=== PATIENT | female | born 1945 | race Caucasian/White ===

== ENCOUNTER 2021-04-05 11:15 | Outpatient (CLI) | payer MEDICARE, BC, SELFPAY ==
--- NOTE | 2021-04-05 11:15 | RT.EKG_ITS ---
APPROVED REPORT Exam: Resting ECG Reason for Exam: tachycardia Patient Location: O HR:107 bpm ECG Measurements Heart Rate 107 AXIS ME 152 P 68 QRSd 77 QRS 16 QT 331 T 65 QTc 442 Conclusion Sinus tachycardia...rate> 99
== END 2021-04-05 11:16 | disposition home or self-care (01) ==
LOC: DI.CM 11:17
PROVIDERS: PCP Family Medicine; Visit Provider Nurse Practitioner Family
DX: R07.89 Other chest pain (principal)
CPT/HCPCS: 93010

== ENCOUNTER 2021-04-05 12:16 | Observation (INO) | payer MEDICARE, BC, SELFPAY ==
[2021-04-05] VITALS (32 sets, daily range): BP systolic 126–167; BP diastolic 64–126; PULSE 82–125; RESP 12–31; TEMP 36.4–36.7; O2SAT 93–98
--- NOTE | 2021-04-05 12:15 | RT.EKG_ITS ---
APPROVED REPORT Exam: Resting ECG Reason for Exam: Rapid Heart Rate Patient Location: E HR:103 bpm ECG Measurements Heart Rate 103 AXIS WA 150 P 59 QRSd 77 QRS -6 QT 333 T 66 QTc 437 Conclusion Sinus tachycardia...rate> [address] t wave ischemic findings
--- NOTE | 2021-04-05 12:30 | DI.CT_ITS ---
Exam(s) CT ABDOMEN PELVIS W EXAM: CT ABDOMEN PELVIS W INDICATION: lower abdomen pain, right sided. COMPARISON: No exams were available for comparison TECHNIQUE: FINDINGS: CT examination of the abdomen and pelvis was performed with a bolus infusion of 100 cc of Omnipaque 3 50. Images obtained through the lung bases are unremarkable. The liver is unremarkable in appearance. Gallbladder is distended otherwise unremarkable. Bile ducts are CT normal. Pancreas appears normal. Spleen is unremarkable in appearance. Adrenals appear normal. The kidneys are unremarkable with no evidence of hydronephrosis, nephrolithiasis, or renal mass.. Ur inary bladder unremarkable. Abdominal aorta is of normal diameter and no major vascular abnormality is seen. No abdominal wall hernia. No abdominal or pelvic adenopathy. HAND COMPOSITOR structures appear intact. There is marked irregular wall thickening and dilatation of the appendix with very prominent periappe ndiceal fat edema and fluid collection. No gross abscess identified but the possibility of leaking o r ruptured appendicitis would have to be raised. No free air seen in the peritoneal cavity. No evid ence of bowel obstruction. No evidence of diverticulitis or bowel obstruction. IMPRESSION: Findings consistent with acute appendicitis, question leaking or ruptured appendicitis. No gross abs cess or free intraperitoneal air. Results of this exam have been verbally communicated with provider. RADIATION DOSE DELIVERED: 772.44mGy.cm Total DLP 772.44mGy.cm Total DLP RADIATION OPTIMIZATION: All CT scans at this facility use at least one of these dose optimization te chniques: automated exposure control; mA and/or kV adjustment per patient size (includes targeted exa ms where dose is matched to clinical indication); or iterative reconstruction.
--- NOTE | 2021-04-05 12:31 | ED.GENADUL_ITS ---
Discharge Plan Disposition Patient Disposition: [facility] INPATIENT Condition: Stable Discharge Details Clinical Impression: Acute appendicitis Primary Care Provider: Carlota Talbot ED Provider: Luisito Madrid Home Meds and New Rx's Prescriptions: No Action calcium carbonate [Calcium 600] 600 MG tablet 600 mg PO DAILY RF: 0 carboxymethylcellulose sodium [Lubricant Eye Drops] 15 ML drops 15 ml Ophthalmic DAILY PRN PRNRF: 0 ascorbate calcium (vitamin C) 500 MG tablet 500 mg PO DAILY PRN PRNRF: 0 garlic 1 EACH capsule 1 ea PO DAILY RF: 0 cholecalciferol (vitamin D3) [Vitamin D3] 400 UNIT capsule 400 unit PO DAILY PRN PRNRF: 0 ibuprofen 200 mg Tablet 400 mg PO PRN PRNRF: 0 Buckthorn DAILY RF: 0 Medical Decision Making 75 yo female with no reported chronic medical problems comes in with right lower abdomen pain for 10 days. Denies n/v, denies dysuria or urinary symptoms, had a low grade temp this morning to 100.2 otherwise no fevers.She states in the past she has had unspecified colitis. She has tendernes with deep palpation in the rlq she rates at 2/10 and when no palpation denies any pain. Concern for possible colon cancer less likely appendicitis given the mild discomfort, will obtain labs and imaging. pt remains stable and on ct does have appendicitis with possible rupture per Dr. Remy. Will consult with general surgery Differential Diagnosis Differential Diagnosis: colitis, appendicitis, colon cancer Imaging Data Radiologic Study: Attestation: I personally reviewed and interpreted this imaging study as follows: Imaging: CT Scan Radiologist's impression: acute appendicitis with possible rupture Lab Data Lab results reviewed: Yes I reviewed the patient's lab results. ECG Data Attestation: I personally reviewed and interpreted this ECG (s) as follows: Prior ECG tracings: not available for review Interpretation: sinus tachycardia, rate of 99, pr 150, no acute st t wave ischem ic findings HPI General Mode of arrival: ambulatory . Date/Time Provider Initiated Documentation: 04/05/21 12:16 . Limitations to Documentation: no limitations . Information obtained by: patient . History of Present Illness 75 year old F presents to the emergency department with the chief complaint of right lower abdomen pain, described as mild, Patient started experiencing this day(s) (10) and it has been constant. No relieving factors improve symptom(s), No exacerbating factors reported . Patient notes other (decreased appetite). Patient did receive the following treatments prior to arrival, none Related Data Home Medications Medication Instructions Recorded Confirmed ascorbate calcium (vitamin C) 500 mg PO DAILY PRN PRN 05/11/13 04/05/21 calcium carbonate [Calcium] 600 mg PO DAILY 05/11/13 04/05/21 carboxymethylcellulose sodium 15 ml OPHTHALMIC DAILY PRN PRN 05/11/13 04/05/21 [Lubricant Eye Drops] cholecalciferol (vitamin D3) 400 unit PO DAILY PRN PRN 05/11/13 04/05/21 [Vitamin D] garlic 1 ea PO DAILY 05/11/13 04/05/21 Buckthorn DAILY 04/05/21 ibuprofen 400 mg PO PRN PRN 04/05/21 04/05/21 Allergies Allergy/AdvReac Type Severity Reaction Status Date / Time No Known Allergies Allergy Verified 04/05/21 12:29 General Stated Complaint: Palpitatns ELADIO: 2 Review of Systems All systems reviewed & are unremarkable except as noted in HPI and below Constitutional Constitutional: Denies chills, Denies fever(s) and Denies weakness Cardiovascular Cardiovascular: Denies chest pain and Denies dyspnea Respiratory Respiratory: Denies cough and Denies dyspnea Gastrointestinal Gastrointestinal: Denies vomiting Musculoskeletal Musculoskeletal: Denies joint swelling Neurologic Neurologic: Denies weakness Psychiatric Psychiatric: Denies depression PFSH Social History Smoking/Tobacco Use Status: Never Smoking risk assessment performed?: Yes Drug use: Never Do you feel safe at home: Yes Do you feel safe in your relationship?: Yes Exam Const General: no acute distress Orientation: alert HENWY Head: normal to inspection Ears: external ears normal General nose exam: external nose normal Mouth: moist mucous membranes Eyes General: appearance normal, both eyes and all related structures Neck Neck: normal visual inspection Resp Effort & Inspection: normal respiratory effort and able to speak in complete sentences Cardio Rate: regular rate GI Palpation: soft, not rigid and tender Skin General skin exam: no rashes or lesions noted Neuro General: patient alert and patient oriented x3 Extrem General: normal to inspection Psych Mental Status: mental status grossly normal Course Vital Signs Vital signs: Vital Signs Temperature 36.6 C 04/05/21 12:20 Pulse 125 H 04/05/21 12:20 Respiratory Rate 16 04/05/21 12:20 Blood Pressure 146/102 H 04/05/21 12:20 Pulse Oximetry 97 04/05/21 12:20 Temperature 36.6 C 04/05/21 12:20 Temperature Source Temporal Artery Scan 04/05/21 12:20 Pulse 125 H 04/05/21 12:20 Respiratory Rate 16 04/05/21 12:20 Blood Pressure 146/102 H 04/05/21 12:20 Blood Pressure Position Supine 04/05/21 12:20 Pulse Oximetry 97 04/05/21 12:20 Oxygen Delivery Method Room Air 04/05/21 12:20 Oxygen Flow Rate 0 04/05/21 12:20 Pain Level 1 04/05/21 12:20
[2021-04-05 12:44] LABS: Abs Immature Grans 0.07 10^3/uL (0.0-0.06); Absolute Basophil Count 0.05 10^3/uL (0.0-0.2); Absolute Eosinophil Count 0.02 10^3/uL (0.0-0.7); Absolute Lymphocyte Count 1.31 10^3/uL (1.2-3.4); Absolute Monocyte Count 1.42 10^3/uL (0.1-0.8); Absolute Neutrophil Count 12.54 10^3/uL (1.2-6.7); Basophils % 0.3; Eosinophils % 0.1; HCT 43.7 % (36.0-46.0); HGB 14.5 g/dL (11.2-15.7); Immature Grans % 0.5; Lymphocytes % 8.5; MCH 29.4 pg (27.0-33.0); MCHC 33.2 % (32.0-36.0); MCV 88.5 fL (80-95); Monocytes % 9.2; Neutrophils % 81.4; Nucleated RBC 0 %; Platelet Count 280 10^3/uL (130-400); RBC 4.94 10^6/uL (3.93-5.22); RDW 11.9 % (11.7-14.6); RDW-SD 38.5 fL; WBC 15.41 10^3/uL (4.4-10.8)
[2021-04-05] MEDS: Normal Saline - Diluent 50 ML VIAL IV (12:58)
[2021-04-05] MEDS: Omnipaque 350 MG/ML 100 ML BTL IJ (12:58)
[2021-04-05] MEDS: Normal Saline Flush 10 ML SYR IVP ×2 (12:58→16:29)
[2021-04-05 13:02] LABS: ALT 22 U/L (14-59); AST 12 U/L (15-37); Albumin 3.6 g/dL (3.4-5.0); Alkaline Phosphatase 75 U/L (46-116); Anion Gap 10.4 mmol/L (3-11); BUN 14 mg/dL (7-18); Bilirubin, Direct 0.3 mg/dL (0.0-0.2); Bilirubin, Total 0.9 mg/dL (0.2-1.0); CO2 26.6 mmol/L (21.0-32.0); CREATININE 1.4 mg/dL (0.55-1.02); Calcium 9.1 mg/dL (8.5-10.1); Chloride 100 mmol/L (98-107); Estimated GFR 36.56 (mL/min/1.73m2); Glucose 138 mg/dL (74-106); Lipase 30 U/L (73-393); Potassium 3.8 mmol/L (3.5-5.1); Sodium 137 mmol/L (136-145); Total Protein 7.7 g/dL (6.4-8.2)
[2021-04-05 13:07] LABS: INR 1.1 (0.9-1.1); PTT Activated 26.3 sec (21.0-27.5); Prothrombin Time 10.9 sec (9.3-11.0)
[2021-04-05] MEDS: PIPERACILLIN/TAZO 4.5 GM in Normal Saline 100 ML IVPB (13:20)
[2021-04-05] MEDS: Normal Saline 1,000 ML 1000 ML IV (13:21)
[2021-04-05 13:28] LABS: Bilirubin Negative (Negative); Blood Trace-intact (Negative); Clarity Sl Cloudy (Clear); Glucose Negative (Negative); Ketones 15 mg/dL (Negative); Leukocyte Esterase Negative (Negative); Nitrite Positive (Negative); Urobilinogen 0.2 EU/dL (Up TO 0.2); pH 6.5 (5-8)
[2021-04-05 13:40] LABS: Bacteria Moderate HPF (Negative); C & S Indicated? Yes; Casts Negative LPF (Negative); Crystals Negative HPF (Negative); Epithelial Cells Few HPF (Negative); Mucus Trace (Negative); WBC 0-2 HPF (0-5)
[2021-04-05 13:49] LABS: Source Nasal/Nares
[2021-04-05 14:27] LABS: COVID-19 PCR Negative (Negative)
[2021-04-05] MEDS: Pantoprazole 40 MG VIAL IVP (16:28)
[2021-04-05] MEDS: Lactated Ringers 1,000 ML 125 ML IV (16:29)
--- NOTE | 2021-04-05 16:45 | W.PM.HP.N ---
Date of service: 04/05/21 Time of Service: 15:45 Assessment and Plan Assessment and plan (1) Appendicitis with nonoperative management: Status: Acute Assessment and plan: This is a 75-year-old female who comes in with a likely delayed presentation of acute appendicitis. My evaluation of the CT is concerning for significant inflammation with a possible phlegmon, but no current signs of abscess, (I did review the images personally with the radiologist.) However, she is hemodynamically stable, non-toxic, appears very comfortable without pain medication, reporting only 2/10 pain. Due to the concern for significant inflammation, we will attempt to treat the patient non-operatively with antibiotics. I have made it very clear to the patient that if she does not improve, or shows signs of worsening (increased WBC, fever, worsening physical exam, etc), we will proceed to the operating room. She also understands there is risk of the formation of an abscess that made need to be drained transcutaneously or in the OR, even with antibiotic treatment.. Plan: --admit to surgical service --IV antibiotics --NPO except ice chips --pain control with low doses --GI and DVT prophylaxis --OOB and ambulate --I have instructed the patient to inform nursing of any worsening of evolution of abdominal pain/discomfort History of Present Illness History of Present Illness Chief Complaint: abdominal pain, malaise Consults Consult date: 04/05/21 Narrative: Consult date: 04/05/21 Narrative: This is a 75-year-old female who presents with ten days of abdominal pain. She states that she initially thought she was having a bout of colitis, and put herself on a liquid diet. She reports she had a low-grade fever off 100.2F once, but no others, and she was checking them daily. She details having increased malaise and anorexia over the 3-4 days prior to presentation, and last night she could not get comfortable while sleeping. The quality of her pain and discomfort has been similar to episodes of colitis in the past, and this has been focal to the right lower quadrant. Mrs. Cruz has not been under routine medical care for greater than ten years, and has never had a colonoscopy. At this time, she denies fever/chills, nausea or vomiting, chest pain, shortness of breath, diarrhea, or dysuria. Her stools have been a little more loose, though she has not been consuming solid food, but they follow her normal pattern of every other day. Review of Systems Constitutional Constitutional: Reports anorexia, Reports difficulty sleeping, Denies fever(s) and Reports malaise Eyes Eyes: Denies blurry vision, Denies change in vision and Denies loss of vision ENT Ears, Nose, Mouth, and Throat: Denies dysphagia, Denies dizziness, Denies odynophagia and Denies sore throat Cardiovascular Cardiovascular: Denies dyspnea Respiratory Respiratory: Denies cough, Denies excessive phlegm production and Denies dyspnea Gastrointestinal Gastrointestinal: Reports abdominal pain, Denies hematochezia, Reports change in bowel habits, Reports change in stool character, Denies dysphagia and Denies odynophagia Genitourinary Genitourinary: Denies difficulty voiding and Denies dysuria Musculoskeletal Musculoskeletal: Denies arthralgias Integumentary/Breasts Skin/Breast: Denies unusual bruising and Denies jaundice Neurologic Neurologic: Denies dizziness and Denies loss of vision Endocrine Endocrine: Denies polyuria [facility] Medical History Cataracts, bilateral Colitis Surgical History History of cataract removal with insertion of prosthetic lens bilateral S/P left knee arthroscopy Social History (Updated 04/06/21 @ 12:13 by Todd Montoya MD) Smoking/Tobacco Use Status: Never Smoking risk assessment performed?: Yes Alcohol Intake: current Details: rare ingestion Drug use: Never Household members: other Details: She is . Her daughter lives in a separate unit upstairs. Do you feel safe at home: Yes Do you feel safe in your relationship?: Yes Meds Allergies and Home Medications Allergies Allergy/AdvReac Type Severity Reaction Status Date / Time No Known Allergies Allergy Verified 04/05/21 12:29 Home Medications Medication Instructions Recorded Confirmed Type ascorbate calcium (vitamin C) 500 mg PO DAILY PRN PRN 05/11/13 04/05/21 History calcium carbonate [Calcium] 600 mg PO DAILY 05/11/13 04/05/21 History carboxymethylcellulose sodium 15 ml OPHTHALMIC DAILY PRN PRN 05/11/13 04/05/21 History [Lubricant Eye Drops] cholecalciferol (vitamin D3) 400 unit PO DAILY PRN PRN 05/11/13 04/05/21 History [Vitamin D] garlic 1 ea PO DAILY 05/11/13 04/05/21 History Buckthorn DAILY 04/05/21 History ibuprofen 400 mg PO PRN PRN 04/05/21 04/05/21 History Exam Const General: cooperative, healthy appearing, comfortable and no acute distress Nutritional Appearance: average body habitus and well nourished Orientation: alert, awake and oriented x3 HENMT Head: normocephalic, atraumatic and no raccoon eyes Ears: hearing grossly normal bilaterally General nose exam: external nose normal Resp Effort & Inspection: normal respiratory effort, able to speak in complete sentences, no cough and no respiratory distress Auscultation: clear to auscultation bilaterally Cardio Rate: regular rate Rhythm: regular rhythm Heart Sounds: S1 normal and S2 normal GI Inspection: normal to inspection and non-distended Palpation: soft, guarding (mild voluntary guarding in the RLQ ) in the RLQ, not rigid and tender in the RLQ; Rovsing's sign negative Auscultation: normoactive bowel sounds Other: Of note, the patient is very active while moving on her gurney during evaluation. 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 Skin General skin exam: no rashes or lesions noted and turgor normal Neuro General: patient alert, patient awake and patient oriented x3 Speech: speech normal Extrem General: no calf tenderness bilaterally Psych Appearance: grossly normal Mental Status: mental status grossly normal Mood: congruent mood Affect: normal affect Attitude: cooperative Thought Process: normal Insight: insight good Judgment: judgment good Results 04/05/21: Admission CBC WBC 15.4K Hgb 14.5 HCT 43.[address] abd/pel: (04/05/21): CT examination of the abdomen and pelvis was performed with a bolus infusion of 100 cc of Omnipaque 350. Images obtained through the lung bases are unremarkable. The liver is unremarkable in appearance. Gallbladder is distended otherwise unremarkable. Bile ducts are CT normal. Pancreas appears normal. Spleen is unremarkable in appearance. Adrenals appear normal. The kidneys are unremarkable with no evidence of hydronephrosis, nephrolithiasis, or renal mass.. Urinary bladder unremarkable. Abdominal aorta is of normal diameter and no major vascular abnormality is seen. No abdominal wall hernia. No abdominal or pelvic adenopathy. INTERNAL AUDIT MANAGER structures appear intact. There is marked irregular wall thickening and dilatation of the appendix with very prominent periappendiceal fat edema and fluid collection. No gross abscess identified but the possibility of leaking or ruptured appendicitis would have to be raised. No free air seen in the peritoneal cavity. No evidence of bowel obstruction. No evidence of diverticulitis or bowel obstruction. IMPRESSION: Findings consistent with acute appendicitis, question leaking or ruptured appendicitis. No gross abscess or free intraperitoneal air. Labs Result diagrams: 04/06/21 06:46 04/06/21 06:46 Labs: Laboratory Results - last 24 hr 04/05/21 04/05/21 04/05/21 12:36 12:36 12:36 WBC 15.41 H RBC 4.94 Hgb 14.5 Hct 43.7 MCV 88.5 MCH 29.4 MCHC 33.2 RDW 11.9 Plt Count 280 MPV 10.0 Immature Gran % 0.5 Neutrophils % 81.4 Lymphocytes % 8.5 Monocytes % 9.2 Eosinophils % 0.1 Basophils % 0.3 Nucleated RBC % 0 Absolute Neutrophils 12.54 H Absolute Lymphocytes 1.31 Absolute Monocytes 1.42 H Absolute Eosinophils 0.02 Absolute Basophils 0.05 PT 10.9 INR 1.1 APTT 26.3 Sodium 137 Potassium 3.8 Chloride 100 Carbon Dioxide 26.6 Anion Gap 10.4 BUN 14 Creatinine 1.4 H Estimated GFR/1.73 m2 36.56 Glucose 138 H Calcium 9.1 Total Bilirubin 0.9 Conjugated Bilirubin 0.3 H AST 12 L ALT 22 Alkaline Phosphatase 75 Total Protein 7.7 Albumin 3.6 Lipase 30 Urine Color Urine Clarity Urine pH Ur Specific [place] Urine Protein Urine Ketones Urine Blood Urine Nitrite Urine Bilirubin Urine Urobilinogen Ur Leukocyte Esterase Urine RBC Urine WBC Ur Epithelial Cells Urine Crystals Urine Bacteria Urine Casts Urine Mucus Ur Culture Indicated? Urine Glucose COVID-19 Source SARS-CoV-2 (PCR) 04/05/21 04/05/21 13:11 13:40 WBC RBC Hgb Hct MCV MCH MCHC RDW Plt Count MPV Immature Gran % Neutrophils % Lymphocytes % Monocytes % Eosinophils % Basophils % Nucleated RBC % Absolute Neutrophils Absolute Lymphocytes Absolute Monocytes Absolute Eosinophils Absolute Basophils PT INR APTT Sodium Potassium Chloride Carbon Dioxide Anion Gap BUN Creatinine Estimated GFR/1.73 m2 Glucose Calcium Total Bilirubin Conjugated Bilirubin AST ALT Alkaline Phosphatase Total Protein Albumin Lipase Urine Color Yellow Urine Clarity Sl cloudy Urine pH 6.5 Ur Specific [place] 1.010 Urine Protein Negative Urine Ketones 15 H Urine Blood Trace-intact H Urine Nitrite Positive H Urine Bilirubin Negative Urine Urobilinogen 0.2 Ur Leukocyte Esterase Negative Urine RBC 3-5 H Urine WBC 0-2 Ur Epithelial Cells Few Urine Crystals Negative Urine Bacteria Moderate Urine Casts Negative Urine Mucus Trace Ur Culture Indicated? Yes Urine Glucose Negative COVID-19 Source Nasal/nares SARS-CoV-2 (PCR) Negative Last Vital Signs Temp 98.1 F 04/05/21 16:10 Pulse 85 04/05/21 16:10 Resp 19 04/05/21 16:10 BP 153/77 H 04/05/21 16:10 Pulse Ox 96 04/05/21 16:10 COVID-19 Screening Have you, or household traveled for leisure in last 14 days?: No Had IN PERSON contact w/suspected or confirmed C-19 person: No
[2021-04-05] MEDS: Heparin 5,000 UNITS/ML VIAL 5000 UNITS SC (18:03)
[2021-04-05] MEDS: PIPERACILLIN/TAZO 3.375 GM in Normal Saline 50 ML IVPB (19:59)
[2021-04-06] VITALS (7 sets, daily range): BP systolic 128–169; BP diastolic 70–99; PULSE 74–95; RESP 16–20; TEMP 36.1–37.3; O2SAT 93–97
[2021-04-06] MEDS: Lactated Ringers 1,000 ML 125 ML IV ×2 (01:26→11:22)
[2021-04-06] MEDS: PIPERACILLIN/TAZO 3.375 GM in Normal Saline 50 ML IVPB ×4 (01:26→20:29)
[2021-04-06] MEDS: Heparin 5,000 UNITS/ML VIAL 5000 UNITS SC ×2 (05:24→18:24)
[2021-04-06 06:55] LABS: Abs Immature Grans 0.03 10^3/uL (0.0-0.06); Absolute Basophil Count 0.03 10^3/uL (0.0-0.2); Absolute Eosinophil Count 0.08 10^3/uL (0.0-0.7); Absolute Lymphocyte Count 1.72 10^3/uL (1.2-3.4); Absolute Monocyte Count 0.81 10^3/uL (0.1-0.8); Basophils % 0.3; Eosinophils % 0.9; HCT 36.5 % (36.0-46.0); HGB 12.1 g/dL (11.2-15.7); Immature Grans % 0.3; Lymphocytes % 19.4; MCH 29.7 pg (27.0-33.0); MCHC 33.2 % (32.0-36.0); MCV 89.5 fL (80-95); MPV 10.3 fL (8.0-11.0); Monocytes % 9.1; Nucleated RBC 0 %; Platelet Count 232 10^3/uL (130-400); RBC 4.08 10^6/uL (3.93-5.22); RDW-SD 39.3 fL; WBC 8.86 10^3/uL (4.4-10.8)
[2021-04-06 07:09] LABS: ALT 16 U/L (14-59); AST 12 U/L (15-37); Albumin 2.7 g/dL (3.4-5.0); Alkaline Phosphatase 54 U/L (46-116); Anion Gap 7.1 mmol/L (3-11); BUN 12 mg/dL (7-18); Bilirubin, Total 0.6 mg/dL (0.2-1.0); CO2 27.9 mmol/L (21.0-32.0); CREATININE 1.1 mg/dL (0.55-1.02); Calcium 8.3 mg/dL (8.5-10.1); Chloride 108 mmol/L (98-107); Estimated GFR 48.29 (mL/min/1.73m2); Glucose 81 mg/dL (74-106); Sodium 143 mmol/L (136-145)
[2021-04-06] MEDS: Normal Saline Flush 10 ML SYR IVP ×2 (09:17→16:48)
--- NOTE | 2021-04-06 10:09 | PDOC.CMIN ---
- If Service Date Differs Date of service: 04/06/21 Time of Service: 16:20 Care Management Initial Assess REASON FOR HOSPITALIZATION:: Acute appendicitis with possible phlegmon PAST MEDICAL HISTORY/PAST SURGICAL HISTORY:: No PMH noted in chart. PREVIOUS FUNCTIONAL STATUS/SOCIAL/FAMILY SUPPORTS:: Kelly resides in [place], [place]. She is . Kelly has reportedly been in touch with her son who lives in [place]. Another son lives in [place] [facility] [facility] and her daughter Crista lives nearby in [facility]. 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 CURRENT FUNCTIONAL STATUS:: Kelly is ambulating through the hallways independently, and continues to be treated conservatively for appendicitis at this time. Per MD, if Kelly does not improve with conservative measures, surgery will proceed. ADVANCE DIRECTIVES:: None on file. Has patient been provided with info about the portal/API?: Yes Did the patient sign up for the portal?: Yes (Previously ) CODE STATUS:: Full Code INSURANCE COVERAGE / FINANCIAL ISSUES:: BC/BS. Medicare CURRENT HOME/COMMUNITY SERVICES/EQUIPMENT:: None, currently. PRIMARY CARE PHYSICIAN:: Carlota Talbot POTENTIAL DISCHARGE NEEDS:: Follow up appointments, surgery if needed; per MD. PATIENT/FAMILY EDUCATION NEEDS:: Review discharge instructions, discuss Ask Me Three. ANTICIPATED BARRIERS TO DISCHARGE:: None identified at this time. TRANSPORTATION:: Via private vehicle with her daughter. PLAN:: Kelly will return home when ready per MD. She will follow up with her PCP and plan of care as prescribed. She will transport via private vehicle with her daughter.
--- NOTE | 2021-04-06 10:50 | CHAPLAIN ---
Kelly said she is waiting (with IV antibiotics) to see if she'll need her appendix removed. She is comfortable right now and has been in touch with her son who lives in [place]. Another son lives in [facility] and a daughter is local. 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 She sometimes attends [employer] for more theological conversations.
--- NOTE | 2021-04-06 11:25 | W.PM.HP.N ---
Date of service: 04/05/21 Time of Service: 14:25 Assessment and Plan Assessment and plan (1) Appendicitis with nonoperative management: Status: Acute History of Present Illness History of Present Illness Chief Complaint: abdominal pain Consults Consult date: 04/05/21 Narrative: This is a 75-year-old female who presents with ten days of abdominal pain. She states that she initially thought she was having a bout of colitis, and put herself on a liquid diet. She reports she had a low-grade fever off 100.2F once, but no others, and she was checking them daily. She details having increased malaise and anorexia over the 3-4 days prior to presentation, and last night she could not get comfortable while sleeping. The quality of her pain and discomfort has been similar to episodes of colitis in the past, and this has been focal to the right lower quadrant. Mrs. Cruz has not been under routine medical care for greater than ten years, and has never had a colonoscopy. At this time, she denies fever/chills, nausea or vomiting, chest pain, shortness of breath, diarrhea, or dysuria. Her stools have been a little more loose, though she has not been consuming solid food, but they follow her normal pattern of every other day. Review of Systems Constitutional Constitutional: Reports anorexia, Denies chills, Denies increased appetite, Reports lethargy and Reports malaise Eyes Eyes: Denies blurry vision and Denies change in vision ENT Ears, Nose, Mouth, and Throat: Denies dysphagia, Denies otalgia, Denies odynophagia and Denies throat swelling Cardiovascular Cardiovascular: Denies chest pain, Denies lightheadedness and Denies dyspnea Respiratory Respiratory: Denies cough and Denies dyspnea Gastrointestinal Gastrointestinal: Denies dysphagia and Denies odynophagia Genitourinary Genitourinary: Denies urinary frequency, Denies difficulty voiding and Denies dysuria Musculoskeletal Musculoskeletal: Denies arthralgias, Denies numbness and Denies tingling Integumentary/Breasts Skin/Breast: Denies new lesions and Denies rash Neurologic Neurologic: Denies numbness and Denies tingling Allergic/Immunologic Allergic/Immunologic: Denies throat swelling [facility] Medical History Cataracts, bilateral Colitis Surgical History History of cataract removal with insertion of prosthetic lens bilateral S/P left knee arthroscopy Social History Smoking/Tobacco Use Status: Never Smoking risk assessment performed?: Yes Drug use: Never Do you feel safe at home: Yes Do you feel safe in your relationship?: Yes Meds Allergies and Home Medications Allergies Allergy/AdvReac Type Severity Reaction Status Date / Time No Known Allergies Allergy Verified 04/05/21 12:29 Home Medications Medication Instructions Recorded Confirmed Type ascorbate calcium (vitamin C) 500 mg PO DAILY PRN PRN 05/11/13 04/05/21 History calcium carbonate [Calcium] 600 mg PO DAILY 05/11/13 04/05/21 History carboxymethylcellulose sodium 15 ml OPHTHALMIC DAILY PRN PRN 05/11/13 04/05/21 History [Lubricant Eye Drops] cholecalciferol (vitamin D3) 400 unit PO DAILY PRN PRN 05/11/13 04/05/21 History [Vitamin D] garlic 1 ea PO DAILY 05/11/13 04/05/21 History [place] DAILY 04/05/21 History ibuprofen 400 mg PO PRN PRN 04/05/21 04/05/21 History Exam Const General: cooperative, healthy appearing, comfortable and no acute distress Nutritional Appearance: average body habitus and well nourished Orientation: alert, awake and oriented x3 HENMT Head: normocephalic and no raccoon eyes Ears: hearing grossly normal bilaterally General nose exam: external nose normal Mouth: moist mucous membranes Neck Neck: supple Resp Effort & Inspection: normal respiratory effort, able to speak in complete sentences, not labored and no nasal flaring Auscultation: clear to auscultation bilaterally Cardio Rate: regular rate Rhythm: regular rhythm Heart Sounds: S1 normal and S2 normal GI Inspection: normal to inspection, no abdominal wall ecchymosis and non-distended Palpation: soft, guarding in the RLQ, not rigid and tender in the RLQ; Rovsing's sign negative Auscultation: hypoactive bowel sounds Other: no suprapubic tenderness Skin General skin exam: no rashes or lesions noted Wounds: no wounds noted Neuro General: patient alert, patient awake and patient oriented x3 Cognition: normal cognition Speech: speech normal Motor: no movement abnormalities noted Extrem General: normal to inspection, no joint enlargement and no calf tenderness Psych Appearance: grossly normal and well kempt Mental Status: mental status grossly normal Speech and Movement: speech and movement normal Mood: congruent mood Affect: normal affect Attitude: cooperative Thought Process: normal Thought Content: normal Insight: insight good Judgment: judgment good Results Labs Result diagrams: 04/06/21 06:46 04/06/21 06:46 Labs: Laboratory Results - last 24 hr 04/05/21 04/05/21 04/05/21 12:36 12:36 12:36 WBC 15.41 H RBC 4.94 Hgb 14.5 Hct 43.7 MCV 88.5 MCH 29.4 MCHC 33.2 RDW 11.9 Plt Count 280 MPV 10.0 Immature Gran % 0.5 Neutrophils % 81.4 Lymphocytes % 8.5 Monocytes % 9.2 Eosinophils % 0.1 Basophils % 0.3 Nucleated RBC % 0 Absolute Neutrophils 12.54 H Absolute Lymphocytes 1.31 Absolute Monocytes 1.42 H Absolute Eosinophils 0.02 Absolute Basophils 0.05 PT 10.9 INR 1.1 APTT 26.3 Sodium 137 Potassium 3.8 Chloride 100 Carbon Dioxide 26.6 Anion Gap 10.4 BUN 14 Creatinine 1.4 H Estimated GFR/1.73 m2 36.56 Glucose 138 H Calcium 9.1 Total Bilirubin 0.9 Conjugated Bilirubin 0.3 H AST 12 L ALT 22 Alkaline Phosphatase 75 Total Protein 7.7 Albumin 3.6 Lipase 30 Urine Color Urine Clarity Urine pH Ur Specific [place] Urine Protein Urine Ketones Urine Blood Urine Nitrite Urine Bilirubin Urine Urobilinogen Ur Leukocyte Esterase Urine RBC Urine WBC Ur Epithelial Cells Urine Crystals Urine Bacteria Urine Casts Urine Mucus Ur Culture Indicated? Urine Glucose COVID-19 Source SARS-CoV-2 (PCR) 04/05/21 04/05/21 04/06/21 13:11 13:40 06:46 WBC RBC Hgb Hct MCV MCH MCHC RDW Plt Count MPV Immature Gran % Neutrophils % Lymphocytes % Monocytes % Eosinophils % Basophils % Nucleated RBC % Absolute Neutrophils Absolute Lymphocytes Absolute Monocytes Absolute Eosinophils Absolute Basophils PT INR APTT Sodium 143 Potassium 4.0 Chloride 108 H Carbon Dioxide 27.9 Anion Gap 7.1 BUN 12 Creatinine 1.1 H Estimated GFR/1.73 m2 48.29 Glucose 81 D Calcium 8.3 L Total Bilirubin 0.6 Conjugated Bilirubin AST 12 L ALT 16 Alkaline Phosphatase 54 Total Protein 6.0 L Albumin 2.7 L Lipase Urine Color Yellow Urine Clarity Sl cloudy Urine pH 6.5 Ur Specific [place] 1.010 Urine Protein Negative Urine Ketones 15 H Urine Blood Trace-intact H Urine Nitrite Positive H Urine Bilirubin Negative Urine Urobilinogen 0.2 Ur Leukocyte Esterase Negative Urine RBC 3-5 H Urine WBC 0-2 Ur Epithelial Cells Few Urine Crystals Negative Urine Bacteria Moderate Urine Casts Negative Urine Mucus Trace Ur Culture Indicated? Yes Urine Glucose Negative COVID-19 Source Nasal/nares SARS-CoV-2 (PCR) Negative 04/06/21 06:46 WBC 8.86 D RBC 4.08 Hgb 12.1 D Hct 36.5 MCV 89.5 MCH 29.7 MCHC 33.2 RDW 12.0 Plt Count 232 MPV 10.3 Immature Gran % 0.3 Neutrophils % 70.0 Lymphocytes % 19.4 Monocytes % 9.1 Eosinophils % 0.9 Basophils % 0.3 Nucleated RBC % 0 Absolute Neutrophils 6.20 Absolute Lymphocytes 1.72 Absolute Monocytes 0.81 H Absolute Eosinophils 0.08 Absolute Basophils 0.03 PT INR APTT Sodium Potassium Chloride Carbon Dioxide Anion Gap BUN Creatinine Estimated GFR/1.73 m2 Glucose Calcium Total Bilirubin Conjugated Bilirubin AST ALT Alkaline Phosphatase Total Protein Albumin Lipase Urine Color Urine Clarity Urine pH Ur Specific [place] Urine Protein Urine Ketones Urine Blood Urine Nitrite Urine Bilirubin Urine Urobilinogen Ur Leukocyte Esterase Urine RBC Urine WBC Ur Epithelial Cells Urine Crystals Urine Bacteria Urine Casts Urine Mucus Ur Culture Indicated? Urine Glucose COVID-19 Source SARS-CoV-2 (PCR) Last Vital Signs Temp 97.7 F 04/06/21 07:27 Pulse 75 04/06/21 07:27 Resp 20 04/06/21 07:27 BP 151/70 H 04/06/21 07:27 Pulse Ox 96 04/06/21 07:27 COVID-19 Screening Have you, or household traveled for leisure in last 14 days?: No Had IN PERSON contact w/suspected or confirmed C-19 person: No
--- NOTE | 2021-04-06 12:42 | W.PM.PROGNOT ---
Date of Service Date of service: 04/06/21 Time of Service: 10:25 Assessment and Plan Assessment and plan (1) Appendicitis with nonoperative management: Status: Acute Assessment and plan: Pt is doing well. She has not taken any pain medication or anti-pyreticsShe has been afebrile, hemodynamically stable, and her leukocytosis has resolved (15.5K -->8.8K). She is moving freely without significant pain. --will continue IV antibiotics --IV resuscitaition --full liquid diet --pain control --daily labs --serial exams --OOB and ambulate --GI and DVT prophylaxis Subjective Subjective Patient reports: no new complaints, feels better and voiding w/o difficulty; denies shortness of breath Interval history since last seen: Pt is feeling well. States she is not having pain while sitting or moving, only when she pushes on the right lower quadrant. She is tolerating ice chips without nausea, and is voiding well. Exam Const General: cooperative, healthy appearing, comfortable and no acute distress Nutritional Appearance: average body habitus Orientation: alert, awake and oriented x3 Neck Neck: supple Resp Effort & Inspection: normal respiratory effort, able to speak in complete sentences, no grunting and no nasal flaring Cardio Jugular venous pressure: JVD present Rate: regular rate Rhythm: regular rhythm GI Inspection: normal to inspection and non-distended Palpation: soft, guarding in the RLQ, not rigid and tender in the RLQ; Rovsing's sign negative Neuro General: patient alert, patient awake and patient oriented x3 Cognition: normal cognition Speech: speech normal Extrem General: no calf tenderness bilaterally Psych Appearance: grossly normal Mental Status: mental status grossly normal Speech and Movement: speech and movement normal Mood: congruent mood Affect: normal affect Attitude: cooperative Thought Process: normal Thought Content: normal Insight: insight good Judgment: judgment good Objective Last Vital Signs Temp 97.0 F L 04/06/21 11:33 Pulse 75 04/06/21 11:33 Resp 18 04/06/21 11:33 BP 128/92 H 04/06/21 11:33 Pulse Ox 96 04/06/21 11:33 Laboratory Results - last 24 hr 04/05/21 04/05/21 04/05/21 12:36 12:36 12:36 WBC 15.41 H RBC 4.94 Hgb 14.5 Hct 43.7 MCV 88.5 MCH 29.4 MCHC 33.2 RDW 11.9 Plt Count 280 MPV 10.0 Immature Gran % 0.5 Neutrophils % 81.4 Lymphocytes % 8.5 Monocytes % 9.2 Eosinophils % 0.1 Basophils % 0.3 Nucleated RBC % 0 Absolute Neutrophils 12.54 H Absolute Lymphocytes 1.31 Absolute Monocytes 1.42 H Absolute Eosinophils 0.02 Absolute Basophils 0.05 PT 10.9 INR 1.1 APTT 26.3 Sodium 137 Potassium 3.8 Chloride 100 Carbon Dioxide 26.6 Anion Gap 10.4 BUN 14 Creatinine 1.4 H Estimated GFR/1.73 m2 36.56 Glucose 138 H Calcium 9.1 Total Bilirubin 0.9 Conjugated Bilirubin 0.3 H AST 12 L ALT 22 Alkaline Phosphatase 75 Total Protein 7.7 Albumin 3.6 Lipase 30 Urine Color Urine Clarity Urine pH Ur Specific [place] Urine Protein Urine Ketones Urine Blood Urine Nitrite Urine Bilirubin Urine Urobilinogen Ur Leukocyte Esterase Urine RBC Urine WBC Ur Epithelial Cells Urine Crystals Urine Bacteria Urine Casts Urine Mucus Ur Culture Indicated? Urine Glucose COVID-19 Source SARS-CoV-2 (PCR) 04/05/21 04/05/21 04/06/21 13:11 13:40 06:46 WBC RBC Hgb Hct MCV MCH MCHC RDW Plt Count MPV Immature Gran % Neutrophils % Lymphocytes % Monocytes % Eosinophils % Basophils % Nucleated RBC % Absolute Neutrophils Absolute Lymphocytes Absolute Monocytes Absolute Eosinophils Absolute Basophils PT INR APTT Sodium 143 Potassium 4.0 Chloride 108 H Carbon Dioxide 27.9 Anion Gap 7.1 BUN 12 Creatinine 1.1 H Estimated GFR/1.73 m2 48.29 Glucose 81 D Calcium 8.3 L Total Bilirubin 0.6 Conjugated Bilirubin AST 12 L ALT 16 Alkaline Phosphatase 54 Total Protein 6.0 L Albumin 2.7 L Lipase Urine Color Yellow Urine Clarity Sl cloudy Urine pH 6.5 Ur Specific [place] 1.010 Urine Protein Negative Urine Ketones 15 H Urine Blood Trace-intact H Urine Nitrite Positive H Urine Bilirubin Negative Urine Urobilinogen 0.2 Ur Leukocyte Esterase Negative Urine RBC 3-5 H Urine WBC 0-2 Ur Epithelial Cells Few Urine Crystals Negative Urine Bacteria Moderate Urine Casts Negative Urine Mucus Trace Ur Culture Indicated? Yes Urine Glucose Negative COVID-19 Source Nasal/nares SARS-CoV-2 (PCR) Negative 04/06/21 06:46 WBC 8.86 D RBC 4.08 Hgb 12.1 D Hct 36.5 MCV 89.5 MCH 29.7 MCHC 33.2 RDW 12.0 Plt Count 232 MPV 10.3 Immature Gran % 0.3 Neutrophils % 70.0 Lymphocytes % 19.4 Monocytes % 9.1 Eosinophils % 0.9 Basophils % 0.3 Nucleated RBC % 0 Absolute Neutrophils 6.20 Absolute Lymphocytes 1.72 Absolute Monocytes 0.81 H Absolute Eosinophils 0.08 Absolute Basophils 0.03 PT INR APTT Sodium Potassium Chloride Carbon Dioxide Anion Gap BUN Creatinine Estimated GFR/1.73 m2 Glucose Calcium Total Bilirubin Conjugated Bilirubin AST ALT Alkaline Phosphatase Total Protein Albumin Lipase Urine Color Urine Clarity Urine pH Ur Specific [place] Urine Protein Urine Ketones Urine Blood Urine Nitrite Urine Bilirubin Urine Urobilinogen Ur Leukocyte Esterase Urine RBC Urine WBC Ur Epithelial Cells Urine Crystals Urine Bacteria Urine Casts Urine Mucus Ur Culture Indicated? Urine Glucose COVID-19 Source SARS-CoV-2 (PCR)
[2021-04-06] MEDS: POTASSIUM CHLORIDE/D5-0.45NACL 1,000 ML 100 MEQ IV (16:37)
[2021-04-06] MEDS: Pantoprazole 40 MG VIAL IVP (16:48)
[2021-04-07] VITALS (7 sets, daily range): BP systolic 139–173; BP diastolic 73–89; PULSE 60–69; RESP 16–18; TEMP 36.6–36.9; O2SAT 96–98
[2021-04-07] MEDS: PIPERACILLIN/TAZO 3.375 GM in Normal Saline 50 ML IVPB ×4 (02:41→20:21)
[2021-04-07] MEDS: POTASSIUM CHLORIDE/D5-0.45NACL 1,000 ML 100 MEQ IV (04:21)
[2021-04-07] MEDS: Heparin 5,000 UNITS/ML VIAL 5000 UNITS SC ×2 (06:08→17:33)
--- NOTE | 2021-04-07 11:20 | PHACLINREV_ITS ---
Pharmacy Admission Review - Admission Clinical Review (Last Reviewed 04/06/21 @ 11:46 by Todd Montoya MD) Appendicitis with nonoperative management (Acute) No Known Allergies Allergy (Verified 04/05/21 12:29) Height 5 ft 6.93 in Weight 70 kg - Renal Dosing Renal Dosing: BUN 12 mg/dL (7-18) 04/06/21 06:46 Creatinine 1.1 mg/dL (0.55-1.02) H 04/06/21 06:46 Medications needing adjustments: Reviewed (CRCL ~41ML/MIN) - Anticoagulation Anticoagulation: Hgb 12.1 g/dL (11.2-15.7) D 04/06/21 06:46 Hct 36.5 % (36.0-46.0) 04/06/21 06:46 Plt Count 232 10^3/uL (130-400) 04/06/21 06:46 INR 1.1 (0.9-1.1) 04/05/21 12:36 Creatinine 1.1 mg/dL (0.55-1.02) H 04/06/21 06:46 DVT Prohphylaxis: Reviewed Medications: Heparin Therapeutic Anticoagulation: N/A - Opiate Usage Evaluate Pain Scale/Pains Meds: Reviewed Scheduled Bowel Reg ordered if on Opiates?: No (NPO TO FULL LIQ TODAY) - Relevant Labs Sodium 143 mmol/L (136-145) 04/06/21 06:46 Potassium 4.0 mmol/L (3.5-5.1) 04/06/21 06:46 Chloride 108 mmol/L (98-107) H 04/06/21 06:46 - DM Control DM Control: Glucose 81 mg/dL (74-106) D 04/06/21 06:46 Insulin Dosing: Reviewed - BP Control BP Control: Blood Pressure 161/79 Blood Pressure 160/73 Blood Pressure 153/74 - Home Meds Home Med List reviewed: N/A (list not updated) - Current meds Current Medication Order Review: Reviewed - Comments Comments/Follow Ups: provider notes pt improving and has changed diet to full li quids
[2021-04-07 11:28] LABS: Abs Immature Grans 0.02 10^3/uL (0.0-0.06); Absolute Basophil Count 0.05 10^3/uL (0.0-0.2); Absolute Eosinophil Count 0.15 10^3/uL (0.0-0.7); Absolute Lymphocyte Count 1.27 10^3/uL (1.2-3.4); Absolute Monocyte Count 0.61 10^3/uL (0.1-0.8); Absolute Neutrophil Count 4.11 10^3/uL (1.2-6.7); Basophils % 0.8; Eosinophils % 2.4; HCT 38.5 % (36.0-46.0); HGB 12.5 g/dL (11.2-15.7); Immature Grans % 0.3; Lymphocytes % 20.5; MCH 29.1 pg (27.0-33.0); MCHC 32.5 % (32.0-36.0); MCV 89.7 fL (80-95); Monocytes % 9.8; Neutrophils % 66.2; Nucleated RBC 0 %; Platelet Count 280 10^3/uL (130-400); RBC 4.29 10^6/uL (3.93-5.22); RDW 12.2 % (11.7-14.6); RDW-SD 39.9 fL; WBC 6.21 10^3/uL (4.4-10.8)
[2021-04-07 11:45] LABS: ALT 18 U/L (14-59); AST 13 U/L (15-37); Alkaline Phosphatase 55 U/L (46-116); Anion Gap 5.6 mmol/L (3-11); BUN 8 mg/dL (7-18); Bilirubin, Total 0.5 mg/dL (0.2-1.0); CO2 29.4 mmol/L (21.0-32.0); CREATININE 1.2 mg/dL (0.55-1.02); Calcium 8.6 mg/dL (8.5-10.1); Chloride 107 mmol/L (98-107); Estimated GFR 43.68 (mL/min/1.73m2); Glucose 131 mg/dL (74-106); Potassium 3.9 mmol/L (3.5-5.1); Sodium 142 mmol/L (136-145); Total Protein 6.7 g/dL (6.4-8.2)
--- NOTE | 2021-04-07 14:00 | W.PM.PROGNOT ---
Date of Service Date of service: 04/07/21 Time of Service: 14:01 Assessment and Plan Assessment and plan (1) Appendicitis with nonoperative management: Status: Acute Assessment and plan: Pt is much improved but still with some tenderness to palpation. --will continue IV antibiotics --IV lock fluids --will maintain on full liquid diet --daily labs --serial exams --OOB and ambulate --GI and DVT prophylaxis --anticipate discharge home tomorrow on oral antibiotics (2) E. coli UTI: Status: Acute Assessment and plan: Admission urinalysis, lead to reflex culture which resulted in a ashraf-sensitive UTI. She does not have a history of chronic UTI. Admission CT did not demonstrate bladder or kidney stones or urinary tract abnormality. --pt denies any urinary symptoms --she has been on piperacillin/tazobactam Subjective Subjective Patient reports: no new complaints, feels better, tolerating liquids well and voiding w/o difficulty; denies nausea and vomiting Interval history since last seen: Kelly is feeling well, just run down and less peppy than normal. She is tolerating full liquids well. She has been urinating copiously, and denies any dysuria. She is moving freely around her room. Exam Const General: cooperative, healthy appearing, comfortable, no acute distress and well developed Nutritional Appearance: average body habitus and well nourished Orientation: alert, awake and oriented x3 [facility] Head: normocephalic and no raccoon eyes Ears: hearing grossly normal bilaterally General nose exam: external nose normal Eyes Other: no scleral icterus Neck Neck: normal visual inspection and supple Resp Effort & Inspection: normal respiratory effort, able to speak in complete sentences, abnormal respiratory pattern and no cough GI Inspection: other (heparin injection sites visible) Palpation: soft, no guarding and tender in the RLQ; not suprapubicly, with no rebound tenderness and Rovsing's sign negative Other: no suprapubic tenderness Skin Other: punctate injection sites seen on abdomen from heparin Neuro General: patient alert, patient awake and patient oriented x3 Motor: no movement abnormalities noted Extrem General: normal to inspection, clubbing, cyanosis or edema noted and no calf tenderness bilaterally Psych Appearance: grossly normal and well kempt Mental Status: mental status grossly normal Speech and Movement: speech and movement normal Mood: congruent mood Affect: normal affect Attitude: cooperative Thought Process: normal Thought Content: normal Insight: insight good Judgment: judgment good Objective Last Vital Signs Temp 98.2 F 04/07/21 11:30 Pulse 65 04/07/21 11:30 Resp 18 04/07/21 11:30 BP 139/79 04/07/21 11:30 Pulse Ox 97 04/07/21 11:30 Laboratory Results - last 24 hr 04/07/21 04/07/21 11:25 11:25 WBC 6.21 RBC 4.29 Hgb 12.5 Hct 38.5 MCV 89.7 MCH 29.1 MCHC 32.5 RDW 12.2 Plt Count 280 MPV 10.0 Immature Gran % 0.3 Neutrophils % 66.2 Lymphocytes % 20.5 Monocytes % 9.8 Eosinophils % 2.4 Basophils % 0.8 Nucleated RBC % 0 Absolute Neutrophils 4.11 Absolute Lymphocytes 1.27 Absolute Monocytes 0.61 Absolute Eosinophils 0.15 Absolute Basophils 0.05 Sodium 142 Potassium 3.9 Chloride 107 Carbon Dioxide 29.4 Anion Gap 5.6 BUN 8 Creatinine 1.2 H Estimated GFR/1.73 m2 43.68 Glucose 131 H Calcium 8.6 Total Bilirubin 0.5 AST 13 L ALT 18 Alkaline Phosphatase 55 Total Protein 6.7 Albumin 3.0 L
--- NOTE | 2021-04-07 14:31 | PDOC.CMPRO ---
- If Service Date Differs Date of service: 04/07/21 Time of Service: 14:31 Care Management Progress Note S/O: Kelly is walking around her room, rearranging things when CM comes to meet with her. She is pleasant and easily engages in conversation. She states she is feeling much better, though continues to have a little bit of tenderness in the right lower quadrant of her abdomen. Kelly shares that her care at [facility] has been wonderful, but she is looking forward to returning home. A: Kelly is a 75 year old female admitted to [facility] on 04/05/2021 for acute appendicitis with possible phlegmon. P: Plan remains for Kelly to return home with no new services when medically cleared by provider. She will follow up with her PCP and discharge plan of care as directed. She will drive herself home if able, as her car is currently in the [facility] parking lot. If not able to drive herself, then her daughter will transport her home via private vehicle. CM will continue to follow.
[2021-04-07] MEDS: Normal Saline Flush 10 ML SYR IVP ×2 (17:33→20:23)
[2021-04-07] MEDS: Pantoprazole 40 MG VIAL IVP (17:33)
[2021-04-07] MEDS: Normal Saline 500 ML 30 ML IV (20:21)
[2021-04-08] MEDS: Normal Saline Flush 10 ML SYR IVP ×2 (01:54→14:08)
[2021-04-08] MEDS: PIPERACILLIN/TAZO 3.375 GM in Normal Saline 50 ML IVPB ×3 (01:54→14:08)
[2021-04-08 03:13] VITALS: BP 160/80; PULSE 63; RESP 17; TEMP 36.3; O2SAT 96
[2021-04-08] MEDS: Heparin 5,000 UNITS/ML VIAL 5000 UNITS SC (06:06)
[2021-04-08 07:17] LABS: Abs Immature Grans 0.01 10^3/uL (0.0-0.06); Absolute Basophil Count 0.03 10^3/uL (0.0-0.2); Absolute Lymphocyte Count 1.81 10^3/uL (1.2-3.4); Absolute Monocyte Count 0.65 10^3/uL (0.1-0.8); Absolute Neutrophil Count 3.29 10^3/uL (1.2-6.7); Basophils % 0.5; Eosinophils % 3.3; HGB 12.3 g/dL (11.2-15.7); Immature Grans % 0.2; Lymphocytes % 30.2; MCH 29.6 pg (27.0-33.0); MCHC 33.2 % (32.0-36.0); MCV 88.9 fL (80-95); MPV 10.4 fL (8.0-11.0); Monocytes % 10.9; Neutrophils % 54.9; Nucleated RBC 0 %; Platelet Count 284 10^3/uL (130-400); RBC 4.16 10^6/uL (3.93-5.22); RDW 12.1 % (11.7-14.6); RDW-SD 39.4 fL; WBC 5.99 10^3/uL (4.4-10.8)
[2021-04-08 07:32] LABS: ALT 18 U/L (14-59); AST 15 U/L (15-37); Albumin 2.9 g/dL (3.4-5.0); Alkaline Phosphatase 49 U/L (46-116); BUN 6 mg/dL (7-18); Bilirubin, Total 0.4 mg/dL (0.2-1.0); CREATININE 1.2 mg/dL (0.55-1.02); Calcium 8.9 mg/dL (8.5-10.1); Chloride 108 mmol/L (98-107); Estimated GFR 43.68 (mL/min/1.73m2); Glucose 97 mg/dL (74-106); Sodium 145 mmol/L (136-145); Total Protein 6.4 g/dL (6.4-8.2)
[2021-04-08 08:00] VITALS: BP 162/83; PULSE 63; RESP 18; TEMP 36.6; O2SAT 97
[2021-04-08 11:46] VITALS: BP 156/82; PULSE 74; RESP 18; TEMP 36.4; O2SAT 98
--- NOTE | 2021-04-08 12:54 | PGE_ITS ---
Date of Service Date of service: 04/08/21 Time of Service: 12:54 Assessment and Plan Assessment and plan (1) Hypertension: Status: Chronic Assessment and plan: The patient has had elevated blood pressures throughout this hospitalization. She needs to establish a PCP for management, and this has been emphasized multiple times by me. Qualifiers: Hypertension type: unspecified Qualified Code(s): I10 - Essential (primary) hypertension (2) CKD (chronic kidney disease): Status: Chronic Assessment and plan: The patient has had elevated creatinine levels with decreased eGFR throughout this hospitalization. She needs to establish a PCP for management, and this has been emphasized multiple times by me. Qualifiers: Chronic kidney disease stage: unspecified stage Qualified Code(s): N18.9 - Chronic kidney disease, unspecified (3) E. coli UTI: Status: Acute (4) Appendicitis with nonoperative management: Status: Acute Assessment and plan: This 75-year-old is now HD#4 of antibiotic treatment for delayed presentation of appendicitis with possible phlegmon. The patient is doing well, is without pain, fever, and her leukocytosis is resolved. She feels ready to go home. --will discharge home on Augmentin for 10 more days --pt instructed to f/u with surgery clinic for evaluation and to schedule colonoscopy Subjective Subjective Patient reports: no new complaints, feels better, tolerating liquids well, flatus and bowel movement; denies nausea and vomiting Interval history since last seen: The patient is feeling very well, and ready and safe to go home. She is tolerating a full liquid diet without increased pain. She is voiding and ambulating without difficulty. She has had a bowel movement. Exam Const General: cooperative, healthy appearing, comfortable, no acute distress and well developed Nutritional Appearance: average body habitus Orientation: alert, awake and oriented x3 HENMT Head: normal to inspection, no acral cyanosis, no Crain's sign and no raccoon eyes Eyes Other: no scleral icterus Neck Neck: normal visual inspection and supple Resp Effort & Inspection: normal respiratory effort, able to speak in complete sentences, no grunting and not labored GI Palpation: soft, no guarding and tender (very minimal RLQ tenderness to deep palpation) in the RLQ; obturator sign negative, with no rebound tenderness and R ovsing's sign negative Other: no suprapubic tenderness Neuro General: patient alert, patient awake and patient oriented x3 Cognition: normal cognition Speech: speech normal Gait: normal gait Extrem General: no calf tenderness bilaterally and no edema Psych Appearance: grossly normal Mental Status: mental status grossly normal Speech and Movement: speech and movement normal Mood: congruent mood Affect: normal affect Attitude: cooperative Thought Process: normal Thought Content: normal Insight: insight good Judgment: judgment good Objective Last Vital Signs Temp 97.5 F L 04/08/21 11:46 Pulse 74 04/08/21 11:46 Resp 18 04/08/21 11:46 BP 156/82 H 04/08/21 11:46 Pulse Ox 98 04/08/21 11:46 Laboratory Results - last 24 hr 04/08/21 04/08/21 06:35 06:35 WBC 5.99 RBC 4.16 Hgb 12.3 Hct 37.0 MCV 88.9 MCH 29.6 MCHC 33.2 RDW 12.1 Plt Count 284 MPV 10.4 Immature Gran % 0.2 Neutrophils % 54.9 Lymphocytes % 30.2 Monocytes % 10.9 Eosinophils % 3.3 Basophils % 0.5 Nucleated RBC % 0 Absolute Neutrophils 3.29 Absolute Lymphocytes 1.81 Absolute Monocytes 0.65 Absolute Eosinophils 0.20 Absolute Basophils 0.03 Sodium 145 Potassium 4.0 Chloride 108 H Carbon Dioxide 29.0 Anion Gap 8.0 BUN 6 L Creatinine 1.2 H Estimated GFR/1.73 m2 43.68 Glucose 97 Calcium 8.9 Total Bilirubin 0.4 AST 15 ALT 18 Alkaline Phosphatase 49 Total Protein 6.4 Albumin 2.9 L
--- NOTE | 2021-04-08 13:14 | PDOC.CMDIS ---
- If Service Date Differs Date of service: 04/08/21 Time of Service: 13:14 LACE Index Scoring Tool - Questions: Length of Stay (in days): 3 Acuity (Admit via E.D.?): Yes E.D. Visits: 1 - Answers: Total Score: 7 Risk of Readmission: Low Risk Care Management Discharge Reason for Hospitalization: Acute appendicitis with possible phlegmon Discharge Plan: Kelly is discharged home with no new services. She will follow up with her PCP and discharge plan of care as directed. Her daughter is driving her home via private vehicle. Patient/Family Education Needs: Review discharge instructions regarding medications and activity level. Discuss Ask Me Three.
--- NOTE | 2021-04-08 13:18 | DSE_ITS ---
Date of service: 04/08/21 Time of Service: 13:18 DS: Diagnosis Discharge Diagnosis (1) Appendicitis with nonoperative management: Status: Acute Asessment and Plan: The patient was treated nonoperatively with antibiotics and has done well. --discharge home with 10 days of Augmentin --follow-up with surgery clinic in 2 weeks --follow up with surgery clinic for colonoscopy scheduling (2) E. coli UTI: Status: Acute (3) Hypertension: Status: Chronic Asessment and Plan: Pt needs to establish a PCP for evaluation and management of chronic disease (4) CKD (chronic kidney disease): Status: Chronic Asessment and Plan: Pt needs to establish a PCP for evaluation and management of chronic disease Discharge Plan Disposition Patient Disposition: HOME Condition: Stable Discharge Details Reason For Visit: acute appendicitis with possible phlegmon Admit Date/Time: 04/05/21 15:26 Admit Provider: Todd Montoya Attending Provider: Todd Montoya Primary Care Provider: Carlota Talbot [facility] Course Hospital Course: The patient was admitted on 04/05/21 with a ten-day complaint of abdominal pain, that she initially thought was colitis. In the 3-4 days before presentation she had increasing malaise, anorexia, and a temperature of 100.2F, that prompted her to come to the emergency department. Here, clinical evaluation revealed leukocytosis, and a CT scan demonstrating appendicitis with significant inflammation. A surgical consult was called. In my examination of the patient and the clinical information, it seemed that this was delayed presentation of appendicitis in a hemodynamically stable patient. I decided to treat her nonoperatively with IV antibiotics. I clarified for the patient that any significant worsening of her clinical status would prompt operative intervention. She understood,and was in agreement. She has steadily improved daily, with decreased pain and tenderness. Her leukocytosis quickly resolved, and WBC is now <6k. Her diet was advanced from clears to full liquid diet, with her appetite steadily increasing. She has been ambulating throughout. She has been voiding well, and has had a bowel movement. She has not used any pain medication throughout the hospitalization. Home Meds and New Rx's Prescriptions: New amoxicillin-pot clavulanate [Augmentin] 500-125 mg tablet 1 tab PO BID Qty: 20 RF: 0 Continued calcium carbonate [Calcium 600] 600 MG tablet 600 mg PO DAILY RF: 0 carboxymethylcellulose sodium [Lubricant Eye Drops] 15 ML drops 15 ml Ophthalmic DAILY PRN PRNRF: 0 ascorbate calcium (vitamin C) 500 MG tablet 500 mg PO DAILY PRN PRNRF: 0 garlic 1 EACH capsule 1 ea PO DAILY RF: 0 cholecalciferol (vitamin D3) [Vitamin D3] 400 UNIT capsule 400 unit PO DAILY PRN PRNRF: 0 ibuprofen 200 mg Tablet 400 mg PO PRN PRNRF: 0 Discontinued [place] DAILY RF: 0 Discharge Instructions Instructions: Appendicitis (GEN), Chronic Kidney Disease (GEN), Chronic Hypertension (DC) Additional Instructions: Follow up with surgery clinic in 2 weeks for evaluation, and to schedule colonoscopy. Establish a PCP for management of chronic conditions, particularly high blood pressure, and possible chronic kidney disease. Stand Alone Forms: Nursing Discharge Form Activity:: Activity as Tolerated Equipment/Supplies:: No Equipment Needed Diet:: As Tolerated DS: Summary Time Spent with Patient providing and/or coordinating discharge services: Greater than 30 minutes Status at Discharge Functional status at discharge: independent ambulation Overall status at discharge: patient is not back to baseline Mental Status: mental status grossly normal Speech and Movement: speech and movement normal Mood: congruent mood Affect: normal affect Exam Psych Mental Status: mental status grossly normal Speech and Movement: speech and movement normal Mood: congruent mood Affect: normal affect DS: Data Vitals/I&O Vitals and I&O: Vital Signs Temperature 97.5 F L 04/08/21 11:46 Temperature Source Tympanic 04/08/21 11:46 Pulse 74 04/08/21 11:46 Pulse Rhythm Regular 04/08/21 08:30 Pulse 88 04/05/21 15:40 Respiratory Rate 18 04/08/21 11:46 Respiratory Effort Non-Labored 04/08/21 08:30 Respiratory Depth Normal 04/08/21 08:30 Respiratory Pattern Normal 04/08/21 08:30 Blood Pressure 156/82 H 04/08/21 11:46 Blood Pressure Mean 102 04/05/21 15:01 Blood Pressure Position Supine 04/05/21 12:20 Pulse Oximetry 98 04/08/21 11:46 Oxygen Delivery Method Room Air 04/08/21 11:46 Oxygen Flow Rate 0 04/08/21 11:46 Pain Level 0 04/08/21 11:46 Comment 04/07/21 23:31 Intake & Output 05/07/2104/08/21 04/08/21 23:59 11:59 23:59 Intake Total 1941 / 3651 480 / 600 120 / 600 Output Total 2150 / 4950 2074 Balance -209 / -1299 -1595 / -1475 120 / -1475 Intake: IV 1111 / 2211 50 / 50 Oral 830 / 1440 430 / 550 120 / 550 Output: Urine 2149 / 4950 2074 Other: Urine Color Pale Pale Yellow Yellow Urine Appearance Clear Clear Urine Odor Normal Normal Comment multiple voids Voiding Methods Toilet Toilet Data Completed and Pending Labs on day of discharge: Labs from last 24 hours 04/08/21 04/08/21 06:35 06:35 WBC 5.99 RBC 4.16 Hgb 12.3 Hct 37.0 MCV 88.9 MCH 29.6 MCHC 33.2 RDW 12.1 Plt Count 284 MPV 10.4 Immature Gran % 0.2 Neutrophils % 54.9 Lymphocytes % 30.2 Monocytes % 10.9 Eosinophils % 3.3 Basophils % 0.5 Nucleated RBC % 0 Absolute Neutrophils 3.29 Absolute Lymphocytes 1.81 Absolute Monocytes 0.65 Absolute Eosinophils 0.20 Absolute Basophils 0.03 Sodium 145 Potassium 4.0 Chloride 108 H Carbon Dioxide 29.0 Anion Gap 8.0 BUN 6 L Creatinine 1.2 H Estimated GFR/1.73 m2 43.68 Glucose 97 Calcium 8.9 Total Bilirubin 0.4 AST 15 ALT 18 Alkaline Phosphatase 49 Total Protein 6.4 Albumin 2.9 L [facility] Medical History Cataracts, bilateral Colitis Surgical History History of cataract removal with insertion of prosthetic lens bilateral S/P left knee arthroscopy Social History (Updated 04/06/21 @ 12:13 by Todd Montoya MD) Smoking/Tobacco Use Status: Never Smoking risk assessment performed?: Yes Alcohol Intake: current Details: rare ingestion Drug use: Never Household members: other Details: She is . Her daughter lives in a [facility] unit upstairs. Do you feel safe at home: Yes Do you feel safe in your relationship?: Yes
== END 2021-04-08 15:00 | disposition home or self-care (01) ==
LOC: ER 15:39 → MS 04-06 07:31
PROVIDERS: Admitting Provider Surgery; Emergency Provider Emergency Medicine; PCP Family Medicine; Visit Provider Surgery
DX: K35.80 Unspecified acute appendicitis (principal); N39.0 Urinary tract infection, site not specified; B96.20 Unspecified Escherichia coli [E. coli] as the cause of diseases classified elsewhere; Z20.822 Contact with and (suspected) exposure to COVID-19; I12.9 Hypertensive chronic kidney disease with stage 1 through stage 4 chronic kidney disease, or unspecified chronic kidney disease; N18.9 Chronic kidney disease, unspecified
CPT/HCPCS: 36415; 80053; 83690; 87077; 87635; 93005; 96361; 96365; 99217; 99219; 99224; 99225; 99285; 74177; 81003; 81015; 82248; 85025; 85610; 85730; 87086; 87186; 93010; 99284; G0378; J1644; J2543; J3490

== ENCOUNTER 2021-04-15 16:47 | Inpatient (IN) | payer MEDICARE, BC, SELFPAY ==
[2021-04-15] VITALS (39 sets, daily range): BP systolic 102–159; BP diastolic 60–129; PULSE 81–105; RESP 10–16; TEMP 36.6; O2SAT 94–99
--- NOTE | 2021-04-15 17:15 | RT.EKG_ITS ---
APPROVED REPORT Exam: Resting ECG Reason for Exam: fatigue Patient Location: E HR:86 bpm ECG Measurements Heart Rate 86 AXIS WA 150 P 69 QRSd 79 QRS 28 QT 359 T 45 QTc 429 Conclusion Sinus rhythm...normal P axis, V-rate 60- 99
--- NOTE | 2021-04-15 17:15 | DI.CT_ITS ---
Exam(s) CT ABDOMEN PELVIS W EXAM: CT ABDOMEN PELVIS W CLINICAL HISTORY: hx of non-operative ruptured appendicitis 8 days. TECHNIQUE: Imaging Protocol: Axial computed tomography images with coronal and sagittal reformatted images were created and reviewed CONTRAST MATERIAL: Intravenous: Omnipaque 100cc Oral: None COMPARISON: CT CT ABDOMEN PELVIS W from 04/05/2021 FINDINGS: VISUALIZED LUNG BASES: No nodules nor pleural effusions evident. ABDOMEN: There is no ascites. LIVER: There are no focal hepatic lesions evident. No evidence of hepatic abscess. GALLBLADDER/BILIARY: Gallbladder appears distended. No gallbladder wall edema or pericholecystic flu id. Recommend follow-up ultrasound. CBD is not dilated. PANCREAS: No evidence of pancreatic mass nor dilatation of the pancreatic duct. SPLEEN: Spleen is not enlarged. No obvious intrasplenic lesions. 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 Splenic and portal veins are patent. ADRENALS: There is a nodule again noted in the lateral limb of the left adrenal gland. This hypodens e nodule measures 1.5 by 1.1 cm. No nodule seen in the opposite-right adrenal gland. KIDNEYS:No cysts evident. No solid renal masses. No calculi nor hydronephrosis.. ABDOMINAL AORTA: Abdominal aorta is not enlarged. LYMPH NODES:There is no retroperitineal nor paraaortic adenopathy. ABDOMINAL WALL: No evidence of significant anterior abdominal wall hernia. GI: No bowel obstruction. The appendix may still be present, despite the finding of acute appendicit is on the recent CT scan April 05, 2021 there is some mild streaking in this region but no distinct absc ess. There is no layering fluid in the dependent aspect of pelvis. PELVIS: GI: There is diffuse circumferential wall edema in the sigmoid and rectosigmoid and there is extensiv e sigmoid diverticulosis. Cannot exclude subtle diverticulitis. LYMPH NODES: There is no intrapelvic nor inguinal adenopathy. REPRODUCTIVE: Uterus appears age-appropriate. There are no ovarian masses identified. URINARY BLADDER: No calculi nor obvious masses evident OSSEOUS: Significant degenerative changes in the right hip. There is a superior endplate compression fracture of L1 which was evident on the prior study. Multilevel chronic degenerative disc disease i n the lumbar spine noted IMPRESSION: 1. Compared to the recent CT scan of April 05, 2021 there is again noted extensive sigmoid diverticulosi s. There appears to be diffuse edema of the entire sigmoid and rectum at this time. However, no obv ious focal acute diverticulitis. 2. There is a structure in the right lower quadrant has the appearance of the appendix, possibly not having been removed following the CT scan of 04 05 21. However, the amount of inflammatory change arou nd the appendix has decreased and there is no distinct abscess. No free fluid in the dependent aspec t of the pelvis. 3. There is a 1.5 x 1.1 cm nodule in the left adrenal gland again noted. If clinically indicated thi s could be further studied with noninfused MRI using chemical shift imaging sequences to determine if this is a benign adenoma versus more concerning pathology. 4. L1 compression fracture again noted. RADIATION DOSE DELIVERED: 719.46mGy.cm Total DLP DATA REPOSITORY: All CT scans at this facility are submitted to the National Radiology Data Registry (NRDR) Dose Index Registry (DIR) with the [employer] (ACR). RADIATION OPTIMIZATION: All CT scans at this facility use at least one of these dose optimization te chniques: automated exposure control; mA and/or kV adjustment per patient size (includes targeted exa ms where dose is matched to clinical indication); or iterative reconstruction.
--- NOTE | 2021-04-15 17:36 | W.ED.GENAD ---
Discharge Plan Discharge Details Chief Complaint: Abd Prob Admit Date/Time: 04/15/21 19:46 Admit Provider: Theresa Lara Attending Provider: Theresa Lara Primary Care Provider: Carlota Talbot ED Provider: Padmini Amador Medical Decision Making Patient with at evidence of recurrent appendicitis Possible diverticulitis per V rad interpretation in my review, and my suspicion is that patient has C. difficile colitis, we are finally able to obtain a stool specimen and this was confirmed positive for C. difficile colitis We will treat with vancomycin Dr. Lara will be made aware and will admit patient Lactate negative, white blood cell count 21,000 with shift Agreeable to admission at this time Differential Diagnosis Differential Diagnosis: Acute appendicitis, diverticulitis, C. difficile colitis, urinary tract inf Medical Records Medical records reviewed: Yes I reviewed the patient's medical records. Lab Data Lab results reviewed: Yes I reviewed the patient's lab results. HPI General Mode of arrival: ambulatory. Date/Time Provider Initiated Documentation: 04/15/21 16:51. Limitations to Documentation: no limitations. Information obtained by: patient. HPI Narrative: This 75-year-old female with history of CKD, hypertension, UTI, ruptured appendix with nonoperative management still on antibiotics presents with report of diarrhea which started 2 days ago. Report low-grade fever . Patient states her temperature has not over 100.2. She states that she had 10+ episodes of watery brown stool in the past day. She denies any urinary complaints. She has mild tenderness in her abdomen. She denies any nausea or vomiting. She denies dizziness or weakness. She does feel tired reportedly. She is still taking her Augmentin reportedly. Related Data Home Medications Medication Instructions Recorded Confirmed ascorbate calcium (vitamin C) 500 mg PO DAILY PRN PRN 05/11/13 04/15/21 calcium carbonate [Calcium 600] 600 mg PO DAILY 05/11/13 04/15/21 carboxymethylcellulose sodium 15 ml OPHTHALMIC DAILY PRN PRN 05/11/13 04/15/21 [Lubricant Eye Drops] cholecalciferol (vitamin D3) 400 unit PO DAILY PRN PRN 05/11/13 04/15/21 [Vitamin D3] garlic 1 ea PO DAILY 05/11/13 04/15/21 ibuprofen 400 mg PO PRN PRN 04/05/21 04/15/21 amoxicillin-pot clavulanate 1 tab PO BID #20 tab 04/08/21 04/15/21 [Augmentin] acetaminophen 1,000 mg PO PRN PRN 04/15/21 04/15/21 loperamide [Imodium] 4 mg PO PRN PRN 04/15/21 04/15/21 Previous Rx's Medication Instructions Recorded amoxicillin-pot clavulanate 1 tab PO BID #20 tab 04/08/21 [Augmentin] Allergies Allergy/AdvReac Type Severity Reaction Status Date / Time No Known Allergies Allergy Verified 04/15/21 17:02 General Stated Complaint: Abd Prob ELADIO: 3 Review of Systems Narrative: Review of systems obtained x7 aside from where indicated in HPI [facility] Medical History Cataracts, bilateral Colitis Surgical History History of cataract removal with insertion of prosthetic lens bilateral S/P left knee arthroscopy Social History (Updated 04/06/21 @ 12:13 by Todd Montoya MD) Smoking/Tobacco Use Status: Never Smoking risk assessment performed?: Yes Alcohol Intake: current Details: rare ingestion Drug use: Never Household members: other Details: She is . Her daughter lives in a separate unit upstairs. Do you feel safe at home: Yes Do you feel safe in your relationship?: Yes Exam Const General: cooperative and not ill appearing HENMT Mouth: oral mucosae normal Resp Effort & Inspection: normal respiratory effort Auscultation: clear to auscultation bilaterally Cardio Rate: regular rate Rhythm: regular rhythm GI Other: Mild tenderness to right lower quadrant and suprapubic region, no rebound or guarding, no cva tenderness Skin General skin exam: no rashes or lesions noted Neuro General: patient alert and patient oriented x3 Course Vital Signs Vital signs: Vital Signs Temperature 36.6 C 04/15/21 16:57 Pulse 105 H 04/15/21 16:57 Respiratory Rate 16 04/15/21 16:57 Blood Pressure 123/78 04/15/21 16:57 Pulse Oximetry 96 04/15/21 16:57 Temperature 36.6 C 04/15/21 16:57 Temperature Source Temporal Artery Scan 04/15/21 16:57 Pulse 105 H 04/15/21 16:57 Respiratory Rate 16 04/15/21 16:57 Blood Pressure 123/78 04/15/21 16:57 Blood Pressure Position Supine 04/15/21 16:57 Pulse Oximetry 96 04/15/21 16:57 Oxygen Delivery Method Room Air 04/15/21 16:57 Oxygen Flow Rate 0 04/15/21 16:57 Pain Level 0 04/15/21 16:57
[2021-04-15 17:39] LABS: Abs Immature Grans 0.12 10^3/uL (0.0-0.06); Absolute Basophil Count 0.04 10^3/uL (0.0-0.2); Absolute Eosinophil Count 0.04 10^3/uL (0.0-0.7); Absolute Lymphocyte Count 1.28 10^3/uL (1.2-3.4); Absolute Monocyte Count 1.65 10^3/uL (0.1-0.8); Basophils % 0.2; Eosinophils % 0.2; HCT 41.4 % (36.0-46.0); HGB 13.8 g/dL (11.2-15.7); Immature Grans % 0.6; Lymphocytes % 5.9; MCH 29.7 pg (27.0-33.0); MCHC 33.3 % (32.0-36.0); MPV 10.4 fL (8.0-11.0); Monocytes % 7.6; Neutrophils % 85.5; Nucleated RBC 0 %; Platelet Count 266 10^3/uL (130-400); RBC 4.65 10^6/uL (3.93-5.22); RDW 12.9 % (11.7-14.6); WBC 21.75 10^3/uL (4.4-10.8)
[2021-04-15 18:01] LABS: ALT 38 U/L (14-59); AST 18 U/L (15-37); Albumin 3.5 g/dL (3.4-5.0); Alkaline Phosphatase 66 U/L (46-116); Anion Gap 11.9 mmol/L (3-11); BUN 16 mg/dL (7-18); Bilirubin, Total 0.9 mg/dL (0.2-1.0); CO2 24.1 mmol/L (21.0-32.0); CREATININE 1.1 mg/dL (0.55-1.02); Calcium 9.2 mg/dL (8.5-10.1); Chloride 103 mmol/L (98-107); Estimated GFR 48.29 (mL/min/1.73m2); Glucose 108 mg/dL (74-106); Magnesium 1.9 mg/dL (1.8-2.4); Potassium 3.6 mmol/L (3.5-5.1); Sodium 139 mmol/L (136-145); Total Protein 7.5 g/dL (6.4-8.2)
[2021-04-15 18:16] LABS: Troponin I < 0.05 ng/mL (<0.06)
[2021-04-15 18:39] LABS: Bilirubin Negative (Negative); Blood Negative (Negative); Clarity Clear (Clear); Glucose Negative (Negative); Ketones Negative (Negative); Leukocyte Esterase Negative (Negative); Nitrite Negative (Negative); Specific Gravity 1.025 (1.005-1.025); Urobilinogen 0.2 EU/dL (Up TO 0.2); pH 5.5 (5-8)
[2021-04-15 18:40] LABS: Bacteria Negative HPF (Negative); C & S Indicated? No; Casts Negative LPF (Negative); Crystals Negative HPF (Negative); Epithelial Cells Moderate HPF (Negative); Mucus Negative (Negative); Other Cells Negative (Negative); RBC 0-2 HPF (0-2); WBC 0-2 HPF (0-5)
[2021-04-15 18:44] LABS: Lactate 0.7 mmol/L (0.6-1.4)
[2021-04-15] MEDS: Omnipaque 350 MG/ML 100 ML BTL IJ (18:50)
[2021-04-15] MEDS: Normal Saline Flush 10 ML SYR IVP ×2 (18:50→22:21)
--- NOTE | 2021-04-15 19:15 | DI.VRAD_ITS ---
PROCEDURE INFORMATION: Exam: CT Abdomen And Pelvis With Contrast Exam date and time: 04/15/2021 5:19 PM Age: 75 years old Clinical indication: Abdominal pain TECHNIQUE: Imaging protocol: Computed tomography of the abdomen and pelvis with contrast. COMPARISON: CT ABDOMEN PELVIS W 04/05/2021 12:48 PM FINDINGS: Lungs: Mild scarring in the lung bases. Mediastinal space: Small paraesophageal hiatal hernia. Liver: Normal. No mass. Gallbladder and bile ducts: Gallbladder is distended. No gallbladder wall thickening, pericholecystic fluid, or cholelithiasis. Pancreas: Normal. No ductal dilation. Spleen: Normal. No splenomegaly. Adrenal glands: Normal. No mass. Kidneys and ureters: Normal. No hydronephrosis. Stomach and bowel: Sigmoid diverticulosis with mild diffuse mural thickening and minimal pericolonic fat stranding. Remainder of the colon, small bowel, and stomach are unremarkable. Appendix: Decreased inflammatory changes of the appendix, which remains mildly dilated with mural thickening and periappendiceal fat stranding. Intraperitoneal space: Unremarkable. No free air. No significant fluid collection. Vasculature: Splenic artery calcifications. Minimal aortic atherosclerotic disease. No aneurysm. Pelvic phleboliths. Lymph nodes: Unremarkable. No enlarged lymph nodes. Urinary bladder: Unremarkable as visualized. Reproductive: Unremarkable as visualized. Bones/joints: T12 vertebral body compression fracture, unchanged. Moderate to severe multilevel lumbar degenerative disc disease and facet arthropathy, as before. No acute fracture or focal suspicious osseous lesion. Soft tissues: Unremarkable. IMPRESSION: 1. Chronic appendicitis with decreased inflammatory changes compared to 04/05/2021. 2. Probable mild sigmoid diverticulitis. Dictated and Authenticated by: Cuate Duenas MD. Ordering:MIGUEL Washington MD
--- NOTE | 2021-04-15 20:36 | PGE_ITS ---
Date of Service Date of service: 04/15/21 Time of Service: 20:36 Assessment and Plan Assessment and plan (1) CKD (chronic kidney disease): Status: Chronic Qualifiers: Chronic kidney disease stage: unspecified stage Qualified Code(s): N18.9 - Chronic kidney disease, unspecified (2) Hypertension: Status: Chronic Qualifiers: Hypertension type: unspecified Qualified Code(s): I10 - Essential (primary) hypertension (3) E. coli UTI: Status: Acute (4) Appendicitis with nonoperative management: Status: Acute Assessment and plan: pt was on augmentin at home (5) Antibiotic-associated diarrhea: Status: Acute Assessment and plan: presumptive diagnosis of C diff will start vanco once specimen obtained cont supportive care Complete H&P will follow in a.m. Subjective Subjective Interval history since last seen: Patient was originally admitted on 04/05 with an acute perforated appendicitis. She was at least 10 days out from her perforation and was being medically managed with antibiotic therapy. She did not require a drain. She was discharged home on Augmentin. She returned to the ED today complaining of diarrhea. She has been having 10+ watery stools a day. The working diagnosis at this point is C. difficile. She did have a CT which I did personally review. The radiologist read it as diverticulitis. She was on Augmentin at home. She could certainly have diverticulitis. But I think C. difficile makes more sense in context of her recent diagnosis and antibiotic use. She is feeling better as far as the appendicitis is concerned. This does look improved on CT scan. Stool is being obtained for culture for C. difficile. Once this is obtained then we will start p.o. vancomycin. Patient is being managed for pain management and observation. Once we do know that this is C. difficile, and then we can start cholestyramine for the diarrhea. I do not want to start cholestyramine if this is diverticulitis. Objective Last Vital Signs Temp 36.6 C 04/15/21 16:57 Pulse 87 04/15/21 19:01 Resp 16 04/15/21 16:57 BP 136/75 04/15/21 19:01 Pulse Ox 97 04/15/21 19:01 Laboratory Results - last 24 hr 04/15/21 04/15/21 04/15/21 17:18 17:30 17:30 WBC 21.75 H RBC 4.65 Hgb 13.8 Hct 41.4 MCV 89.0 MCH 29.7 MCHC 33.3 RDW 12.9 Plt Count 266 MPV 10.4 Immature Gran % 0.6 Neutrophils % 85.5 Lymphocytes % 5.9 Monocytes % 7.6 Eosinophils % 0.2 Basophils % 0.2 Nucleated RBC % 0 Absolute Neutrophils 18.60 H Absolute Lymphocytes 1.28 Absolute Monocytes 1.65 H Absolute Eosinophils 0.04 Absolute Basophils 0.04 VBG Lactate Sodium 139 Potassium 3.6 Chloride 103 Carbon Dioxide 24.1 Anion Gap 11.9 H BUN 16 Creatinine 1.1 H Estimated GFR/1.73 m2 48.29 Glucose 108 H Calcium 9.2 Magnesium Cancelled 1.9 Total Bilirubin 0.9 AST 18 ALT 38 Alkaline Phosphatase 66 Troponin I < 0.05 Total Protein 7.5 Albumin 3.5 Urine Color Urine Clarity Urine pH Ur Specific [place] Urine Protein Urine Ketones Urine Blood Urine Nitrite Urine Bilirubin Urine Urobilinogen Ur Leukocyte Esterase Urine RBC Urine WBC Ur Epithelial Cells Urine Crystals Urine Bacteria Urine Casts Urine Mucus Urine Other Ur Culture Indicated? Urine Glucose 04/15/21 04/15/21 18:15 18:40 WBC RBC Hgb Hct MCV MCH MCHC RDW Plt Count MPV Immature Gran % Neutrophils % Lymphocytes % Monocytes % Eosinophils % Basophils % Nucleated RBC % Absolute Neutrophils Absolute Lymphocytes Absolute Monocytes Absolute Eosinophils Absolute Basophils VBG Lactate 0.7 Sodium Potassium Chloride Carbon Dioxide Anion Gap BUN Creatinine Estimated GFR/1.73 m2 Glucose Calcium Magnesium Total Bilirubin AST ALT Alkaline Phosphatase Troponin I Total Protein Albumin Urine Color Yellow Urine Clarity Clear Urine pH 5.5 Ur Specific [place] 1.025 Urine Protein Trace H Urine Ketones Negative Urine Blood Negative Urine Nitrite Negative Urine Bilirubin Negative Urine Urobilinogen 0.2 Ur Leukocyte Esterase Negative Urine RBC 0-2 Urine WBC 0-2 Ur Epithelial Cells Moderate Urine Crystals Negative Urine Bacteria Negative Urine Casts Negative Urine Mucus Negative Urine Other Negative Ur Culture Indicated? No Urine Glucose Negative
[2021-04-15 20:57] LABS: C Diff PCR Positive (Negative)
[2021-04-15 21:00] LABS: C-Reactive Protein 9.87 mg/dL (0.0-0.3)
[2021-04-15 21:22] LABS: Source Nasal/Nares
[2021-04-15] MEDS: Enoxaparin 40 MG/0.4 ML SYR SC (22:21)
[2021-04-15] MEDS: Lactated Ringers 1,000 ML 100 ML IV (22:21)
[2021-04-15 23:55] LABS: COVID-19 PCR Negative (Negative)
[2021-04-16] MEDS: metroNIDAZOLE 500 MG/100 ML BAG 100 MG IVPB ×3 (02:02→18:01)
[2021-04-16] MEDS: Cholestyramine/Aspartame PKT 1 EACH PO ×4 (06:10→19:47)
[2021-04-16 06:16] VITALS: BP 124/79; PULSE 81; RESP 10; TEMP 37; O2SAT 98
--- NOTE | 2021-04-16 07:06 | W.PM.HP.N ---
Date of service: 04/16/21 Time of Service: 07:06 Assessment and Plan Assessment and plan (1) C. difficile colitis: Status: Acute Assessment and plan: Continue with vancomycin. Regular, low fiber diet Will Saline lock out of bed (2) Appendicitis with nonoperative management: Status: Acute Assessment and plan: Hopefully will be able to wait a total of 4-6 weeks and then do an interval appendectomy History of Present Illness Narrative: Patient was admitted last night by Dr. Lara Patient was originally admitted on 04/05 with an acute perforated appendicitis.? She was at least 10 days out from her perforation and was being medically managed with antibiotic therapy.? She did not require a drain.? She was discharged home on Augmentin.? She returned to the ED today complaining of diarrhea.? She has been having 10+ watery stools a day.? The working diagnosis at this point is C. difficile.? She did have a CT which I did personally review.? The radiologist read it as diverticulitis.? She was on Augmentin at home.? She could certainly have diverticulitis.? But I think C. difficile makes more sense in context of her recent diagnosis and antibiotic use.? She is feeling better as far as the appendicitis is concerned.? This does look improved on CT scan.? Stool is being obtained for culture for C. difficile.? Once this is obtained then we will start p.o. vancomycin.? Patient is being managed for pain management and observation.? Once we do know that this is C. difficile, and then we can start cholestyramine for the diarrhea.? I do not want to start cholestyramine if this is diverticulitis. Mrs. Cruz is feeling better this morning. She has no abdominal pain. Her diarrhea has slowed. The cultures were positive for C.Diff. She is on appropriate antibiotics. She is eating without N/V. Discussed diagnoses with patient. Would like to treat her C.Diff and still try to wait 6 weeks prior to proceeding with interval appendectomy if we are able. CT scan from yesterday did show decreased inflammation around the appendix. Review of Systems Constitutional Constitutional: Denies fever(s), Denies headache(s) and Denies weight loss Eyes Eyes: Denies change in vision ENT Ears, Nose, Mouth, and Throat: Denies change in voice, Denies dysphagia and Denies headache(s) Cardiovascular Cardiovascular: Denies chest pain, Denies chest pain at rest, Denies irregular heart rhythm, Denies palpitations and Denies dyspnea Respiratory Respiratory: Denies cough and Denies dyspnea Gastrointestinal Gastrointestinal: Reports as per HPI, Denies dysphagia, Denies dyspepsia and Denies heartburn Genitourinary Genitourinary: Reports system reviewed and no additional complaints, except as documented Musculoskeletal Musculoskeletal: Reports system reviewed and no additional complaints, except as documented Integumentary/Breasts Skin/Breast: Reports system reviewed and no additional complaints, except as documented Neurologic Neurologic: Reports system reviewed and no additional complaints, except as documented and Denies headache(s) Psychiatric Psychiatric: Reports system reviewed and no additional complaints, except as documented Endocrine Endocrine: Reports system reviewed and no additional complaints, except as documented and Denies palpitations [facility] Medical History (Updated 04/16/21 @ 07:10 by Natalie Russell MD) Antibiotic-associated diarrhea Appendicitis with nonoperative management Cataracts, bilateral Colitis E. coli UTI Hypertension Surgical History History of cataract removal with insertion of prosthetic lens bilateral S/P left knee arthroscopy Social History (Updated 04/06/21 @ 12:13 by Todd Montoya MD) Smoking/Tobacco Use Status: Never Smoking risk assessment performed?: Yes Alcohol Intake: current Details: rare ingestion Drug use: Never Household members: other Details: She is . Her daughter lives in a separate unit upstairs. Do you feel safe at home: Yes Do you feel safe in your relationship?: Yes Meds Allergies and Home Medications Allergies Allergy/AdvReac Type Severity Reaction Status Date / Time No Known Allergies Allergy Verified 04/15/21 17:02 Home Medications Medication Instructions Recorded Confirmed Type ascorbate calcium (vitamin C) 500 mg PO DAILY PRN PRN 05/11/13 04/15/21 History calcium carbonate [Calcium 600] 600 mg PO DAILY 05/11/13 04/15/21 History carboxymethylcellulose sodium 15 ml OPHTHALMIC DAILY PRN PRN 05/11/13 04/15/21 History [Lubricant Eye Drops] cholecalciferol (vitamin D3) 400 unit PO DAILY PRN PRN 05/11/13 04/15/21 History [Vitamin D3] garlic 1 ea PO DAILY 05/11/13 04/15/21 History ibuprofen 400 mg PO PRN PRN 04/05/21 04/15/21 History amoxicillin-pot clavulanate 1 tab PO BID #20 tab 04/08/21 04/15/21 Rx [Augmentin] acetaminophen 1,000 mg PO PRN PRN 04/15/21 04/15/21 History loperamide [Imodium] 4 mg PO PRN PRN 04/15/21 04/15/21 History Exam Const General: cooperative, comfortable and no acute distress Orientation: alert and oriented x3 HENMT Head: normocephalic and atraumatic Resp Effort & Inspection: normal respiratory effort Auscultation: clear to auscultation bilaterally Cardio Rate: regular rate Rhythm: regular rhythm Heart Sounds: no gallops, no murmurs and no rubs GI Inspection: normal to inspection Palpation: soft, no hepatosplenomegaly and nontender Auscultation: normal bowel sounds Results Labs Result diagrams: 04/15/21 17:30 04/15/21 17:30 Labs: Laboratory Results - last 24 hr 04/15/21 04/15/21 04/15/21 17:18 17:30 17:30 WBC 21.75 H RBC 4.65 Hgb 13.8 Hct 41.4 MCV 89.0 MCH 29.7 MCHC 33.3 RDW 12.9 Plt Count 266 MPV 10.4 Immature Gran % 0.6 Neutrophils % 85.5 Lymphocytes % 5.9 Monocytes % 7.6 Eosinophils % 0.2 Basophils % 0.2 Nucleated RBC % 0 Absolute Neutrophils 18.60 H Absolute Lymphocytes 1.28 Absolute Monocytes 1.65 H Absolute Eosinophils 0.04 Absolute Basophils 0.04 VBG Lactate Sodium 139 Potassium 3.6 Chloride 103 Carbon Dioxide 24.1 Anion Gap 11.9 H BUN 16 Creatinine 1.1 H Estimated GFR/1.73 m2 48.29 Glucose 108 H Calcium 9.2 Magnesium Cancelled 1.9 Total Bilirubin 0.9 AST 18 ALT 38 Alkaline Phosphatase 66 Troponin I < 0.05 C-Reactive Protein Total Protein 7.5 Albumin 3.5 Urine Color Urine Clarity Urine pH Ur Specific [place] Urine Protein Urine Ketones Urine Blood Urine Nitrite Urine Bilirubin Urine Urobilinogen Ur Leukocyte Esterase Urine RBC Urine WBC Ur Epithelial Cells Urine Crystals Urine Bacteria Urine Casts Urine Mucus Urine Other Ur Culture Indicated? Urine Glucose Stool Calprotectin Stl C.difficile Tox PCR COVID-19 Source SARS-CoV-2 (PCR) 04/15/21 04/15/21 04/15/21 18:15 18:40 18:40 WBC RBC Hgb Hct MCV MCH MCHC RDW Plt Count MPV Immature Gran % Neutrophils % Lymphocytes % Monocytes % Eosinophils % Basophils % Nucleated RBC % Absolute Neutrophils Absolute Lymphocytes Absolute Monocytes Absolute Eosinophils Absolute Basophils VBG Lactate 0.7 Sodium Potassium Chloride Carbon Dioxide Anion Gap BUN Creatinine Estimated GFR/1.73 m2 Glucose Calcium Magnesium Total Bilirubin AST ALT Alkaline Phosphatase Troponin I C-Reactive Protein 9.87 H Total Protein Albumin Urine Color Yellow Urine Clarity Clear Urine pH 5.5 Ur Specific [place] 1.025 Urine Protein Trace H Urine Ketones Negative Urine Blood Negative Urine Nitrite Negative Urine Bilirubin Negative Urine Urobilinogen 0.2 Ur Leukocyte Esterase Negative Urine RBC 0-2 Urine WBC 0-2 Ur Epithelial Cells Moderate Urine Crystals Negative Urine Bacteria Negative Urine Casts Negative Urine Mucus Negative Urine Other Negative Ur Culture Indicated? No Urine Glucose Negative Stool Calprotectin Stl C.difficile Tox PCR COVID-19 Source SARS-CoV-2 (PCR) 04/15/21 04/15/21 04/15/21 19:30 20:48 20:50 WBC RBC Hgb Hct MCV MCH MCHC RDW Plt Count MPV Immature Gran % Neutrophils % Lymphocytes % Monocytes % Eosinophils % Basophils % Nucleated RBC % Absolute Neutrophils Absolute Lymphocytes Absolute Monocytes Absolute Eosinophils Absolute Basophils VBG Lactate Sodium Potassium Chloride Carbon Dioxide Anion Gap BUN Creatinine Estimated GFR/1.73 m2 Glucose Calcium Magnesium Total Bilirubin AST ALT Alkaline Phosphatase Troponin I C-Reactive Protein Total Protein Albumin Urine Color Urine Clarity Urine pH Ur Specific [place] Urine Protein Urine Ketones Urine Blood Urine Nitrite Urine Bilirubin Urine Urobilinogen Ur Leukocyte Esterase Urine RBC Urine WBC Ur Epithelial Cells Urine Crystals Urine Bacteria Urine Casts Urine Mucus Urine Other Ur Culture Indicated? Urine Glucose Stool Calprotectin Stl C.difficile Tox PCR Positive A Cancelled COVID-19 Source Nasal/nares SARS-CoV-2 (PCR) Negative 04/15/21 23:03 WBC RBC Hgb Hct MCV MCH MCHC RDW Plt Count MPV Immature Gran % Neutrophils % Lymphocytes % Monocytes % Eosinophils % Basophils % Nucleated RBC % Absolute Neutrophils Absolute Lymphocytes Absolute Monocytes Absolute Eosinophils Absolute Basophils VBG Lactate Sodium Potassium Chloride Carbon Dioxide Anion Gap BUN Creatinine Estimated GFR/1.73 m2 Glucose Calcium Magnesium Total Bilirubin AST ALT Alkaline Phosphatase Troponin I C-Reactive Protein Total Protein Albumin Urine Color Urine Clarity Urine pH Ur Specific [place] Urine Protein Urine Ketones Urine Blood Urine Nitrite Urine Bilirubin Urine Urobilinogen Ur Leukocyte Esterase Urine RBC Urine WBC Ur Epithelial Cells Urine Crystals Urine Bacteria Urine Casts Urine Mucus Urine Other Ur Culture Indicated? Urine Glucose Stool Calprotectin Cancelled Stl C.difficile Tox PCR COVID-19 Source SARS-CoV-2 (PCR) Last Vital Signs Temp 98.6 F 04/16/21 06:16 Pulse 81 04/16/21 06:16 Resp 10 L 04/16/21 06:16 BP 124/79 04/16/21 06:16 Pulse Ox 98 04/16/21 06:16 COVID-19 Screening Have you, or household traveled for leisure in last 14 days?: No Had IN PERSON contact w/suspected or confirmed C-19 person: No
[2021-04-16 07:38] LABS: Abs Immature Grans 0.05 10^3/uL (0.0-0.06); Absolute Eosinophil Count 0.09 10^3/uL (0.0-0.7); Absolute Monocyte Count 1.07 10^3/uL (0.1-0.8); Basophils % 0.3; Eosinophils % 0.6; HCT 37.5 % (36.0-46.0); HGB 12.3 g/dL (11.2-15.7); Immature Grans % 0.3; Lymphocytes % 11.3; MCH 29.4 pg (27.0-33.0); MCHC 32.8 % (32.0-36.0); MCV 89.7 fL (80-95); MPV 10.9 fL (8.0-11.0); Monocytes % 7.1; Neutrophils % 80.4; Nucleated RBC 0 %; Platelet Count 264 10^3/uL (130-400); RBC 4.18 10^6/uL (3.93-5.22); RDW 12.7 % (11.7-14.6); RDW-SD 41.8 fL; WBC 15.02 10^3/uL (4.4-10.8)
[2021-04-16 07:40] LABS: Absolute Basophil Count 0.05 10^3/uL (0.0-0.2); Absolute Neutrophil Count 12.08 10^3/uL (1.2-6.7)
[2021-04-16] MEDS: Lactated Ringers 1,000 ML 100 ML IV (09:15)
--- NOTE | 2021-04-16 09:52 | PDOC.CMIN ---
- If Service Date Differs Date of service: 04/16/21 Time of Service: 09:52 Care Management Initial Assess REASON FOR HOSPITALIZATION:: C.diff colitis PAST MEDICAL HISTORY/PAST SURGICAL HISTORY:: Medical History. Antibiotic-associated diarrhea. Appendicitis with nonoperative management. Cataracts, bilateral. Colitis. E. coli UTI. Hypertension. Surgical History. History of cataract removal with insertion of prosthetic lens. bilateral. S/P left knee arthroscopy PREVIOUS FUNCTIONAL STATUS/SOCIAL/FAMILY SUPPORTS:: Kelly resides in [place], [place]. She is . Kelly has reportedly been in touch with her son who lives in [place]. She has two other sons, one who lives in [facility], and one lives in [place]. One of her daughters lives with her, and another lives in [place], [place]. 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 She is independent at baseline and states that she feels younger than her stated age. CURRENT FUNCTIONAL STATUS:: Kelly was sitting up in bed when CM met with her. She stated that she had just had a video call with her son in [place] with his two children. She stated that video calls are not new to her, as she has children all over the world. She stated that she is feeling better today, and is expecting to remain at [facility] for IV abx for a few more days, per MD. She stated that she is very independent and does not expect that she will require services upon discharge. CM will continue to follow. ADVANCE DIRECTIVES:: None on file. CM will offer forms. Has patient been provided with info about the portal/API?: Yes Did the patient sign up for the portal?: Yes (previously) CODE STATUS:: Full Code INSURANCE COVERAGE / FINANCIAL ISSUES:: MCR/ BCBS CURRENT HOME/COMMUNITY SERVICES/EQUIPMENT:: No current services or equipment. PRIMARY CARE PHYSICIAN:: Carlota Talbot POTENTIAL DISCHARGE NEEDS:: Follow up appointments PATIENT/FAMILY EDUCATION NEEDS:: Review discharge instructions, discuss Ask Me Three. ANTICIPATED BARRIERS TO DISCHARGE:: None identified at this time. TRANSPORTATION:: Via private vehicle with her daughter. PLAN:: Kelly will return home when ready per MD. She will follow up with her PCP and plan of care as prescribed. She will transport via private vehicle with her daughter. CM will continue to follow. Readmission - Within the Past 30 Days Yes or No: Y - Date of First Admission Date of 1st Admission: 04/05/21 - Date of this Admission Date of Admission: 04/15/21 This admission was: Through ED - Office Visit Since 1st Admission Have you seen your PCP in the office since discharge?: No Had an appointment Been Scheduled?: No - I. Interview patient and/or Family Difficulty reaching your doctor or getting an office appt?: No Have you had trouble purchasing/ or taking medication?: No How do you take your medications and set up your pills?: independently Have you had trouble with getting meals at home?: No Did you feel ready for discharge when you left the last time: Yes Were services received that you thought were set up on disch: No If patient did not receive services, were there orders at: No What were the barriers for not receiving services?: Not required/requested. Independent at baseline. Reason there were no orders at discharge: Independent- no recommendation for services. How do you think you became sick enough to come back?: Antibiotics taken for appendicitis made Kelly more susceptible to C.Diff infection. - ED visits How many ED visits in the past 12 months: 2 - Assessment for Readmission Summary of readmission circumstances, based upon interviews: Kelly reported that she felt ready for discharge when she left her last admission at [facility]. She stated that she chose a conservative approach, non surgical, and she feels that she responded well to that, although the antibiotic therapy did make her more prone to C.Diff infection, which is what brought her to the ED this admission. Although the two admissions are related, she does not feel that this was an avoidable admission, given the conservative approach she chose for treatment of her appendicitis.
--- NOTE | 2021-04-16 14:59 | PHA.REVIEW ---
Pharmacy Admission Review - Admission Clinical Review (Last Updated 04/16/21 @ 07:10 by Natalie Russell MD) C. difficile colitis (Acute) Antibiotic-associated diarrhea (Acute) E. coli UTI (Acute) Appendicitis with nonoperative management (Acute) No Known Allergies Allergy (Verified 04/15/21 17:02) Height 5 ft 7 in Weight 66.224 kg - Renal Dosing Renal Dosing: BUN 16 mg/dL (7-18) 04/15/21 17:30 Creatinine 1.1 mg/dL (0.55-1.02) H 04/15/21 17:30 Medications needing adjustments: Reviewed (Crcl ~42.31 mL/min current meds okay.) - Anticoagulation Anticoagulation: Hgb 12.3 g/dL (11.2-15.7) 04/16/21 06:51 Hct 37.5 % (36.0-46.0) 04/16/21 06:51 Plt Count 264 10^3/uL (130-400) 04/16/21 06:51 Creatinine 1.1 mg/dL (0.55-1.02) H 04/15/21 17:30 DVT Prohphylaxis: Reviewed Medications: Enoxaparin Therapeutic Anticoagulation: N/A - Opiate Usage Evaluate Pain Scale/Pains Meds: Reviewed Scheduled Bowel Reg ordered if on Opiates?: No (liquid stools) - Relevant Labs Sodium 139 mmol/L (136-145) 04/15/21 17:30 Potassium 3.6 mmol/L (3.5-5.1) 04/15/21 17:30 Chloride 103 mmol/L (98-107) 04/15/21 17:30 Magnesium 1.9 mg/dL (1.8-2.4) 04/15/21 17:30 C-Reactive Protein 9.87 mg/dL (0.0-0.3) H 04/15/21 18:40 Electrolytes, C-Reactive P, ESR: Reviewed - DM Control DM Control: Glucose 108 mg/dL (74-106) H 04/15/21 17:30 Insulin Dosing: N/A - Heart Failure/AR Heart Failure/AR: Troponin I < 0.05 ng/mL (<0.06) 04/15/21 17:30 EF%, EVARISTO's, B-Blockers, Diuretics: Reviewed - BP Control BP Control: Blood Pressure 124/79 If elevated: N/A - Qtc Review If Elevated: N/A (QTc 429 on admission) - IV to PO Switch IV Medications: Reviewed - Home Meds Home Med List reviewed: Reviewed (augmentin (C.Diff), ascorbic acid, calcium, carboxymethylcellulose(PRN), cholecalciferol, garlic, ibuprofen(PRN), loperamide(PRN)) - Current meds Current Medication Order Review: Intervened (Discontinued duplicate med orders and DI meds (already had been given).) - Comments Comments/Follow Ups: Watch VS, labs, for culture results and for med changes (possible renal dose adjustments). Antibiotic Activity - Pharmacy Antibiotic Review Pharmacy Antibiotic Activity: Reviewed, no change (IV metronidazole and PO vanco ordered for C.diff. Blood cultures pending.)
[2021-04-16 15:22] VITALS: BP 159/78; PULSE 80; RESP 18; TEMP 38.7; O2SAT 99
[2021-04-16 15:31] VITALS: TEMP 38.7
[2021-04-16] MEDS: Acetaminophen 500 MG TAB 1000 MG PO (15:31)
--- NOTE | 2021-04-16 15:46 | CHAPLAIN ---
Kelly and I know each other from [facility], and she was admitted here about a week ago. She said the antibiotics she was taking killed some healthy germs in her stomach as well, and allowed some bad ones back in. She is comfortable and waiting it out she said. I'll continue to visit.
[2021-04-16 18:06] VITALS: TEMP 37.3
[2021-04-16 21:09] LABS: Campylobacter PCR Negative (Negative); Salmonella PCR Negative (Negative); Shiga Toxin PCR Negative (Negative); Shigella/Enteroinvasive Ecoli Negative (Negative)
[2021-04-16] MEDS: Lactated Ringers 1,000 ML 80 ML IV (21:58)
[2021-04-16] MEDS: Enoxaparin 40 MG/0.4 ML SYR SC (21:58)
[2021-04-17 01:58] VITALS: BP 145/74; PULSE 73; RESP 12; TEMP 36.7; O2SAT 99
[2021-04-17] MEDS: metroNIDAZOLE 500 MG/100 ML BAG 100 MG IVPB (01:59)
[2021-04-17] MEDS: Cholestyramine/Aspartame PKT 1 EACH PO ×4 (06:37→19:09)
[2021-04-17 06:51] LABS: Abs Immature Grans 0.04 10^3/uL (0.0-0.06); Absolute Basophil Count 0.04 10^3/uL (0.0-0.2); Absolute Eosinophil Count 0.17 10^3/uL (0.0-0.7); Absolute Lymphocyte Count 1.59 10^3/uL (1.2-3.4); Absolute Monocyte Count 0.87 10^3/uL (0.1-0.8); Absolute Neutrophil Count 8.02 10^3/uL (1.2-6.7); Basophils % 0.4; Eosinophils % 1.6; HCT 35.5 % (36.0-46.0); HGB 11.5 g/dL (11.2-15.7); Immature Grans % 0.4; Lymphocytes % 14.8; MCH 28.8 pg (27.0-33.0); MCHC 32.4 % (32.0-36.0); MPV 10.7 fL (8.0-11.0); Monocytes % 8.1; Neutrophils % 74.7; Nucleated RBC 0 %; Platelet Count 249 10^3/uL (130-400); RBC 3.99 10^6/uL (3.93-5.22); RDW 12.8 % (11.7-14.6); RDW-SD 41.5 fL; WBC 10.73 10^3/uL (4.4-10.8)
[2021-04-17 08:01] VITALS: BP 161/69; PULSE 78; RESP 16; TEMP 37; O2SAT 97
--- NOTE | 2021-04-17 08:03 | W.PM.PROGNOT ---
Date of Service Date of service: 04/17/21 Time of Service: 08:03 Assessment and Plan Assessment and plan (1) C. difficile colitis: Status: Acute Assessment and plan: Continue with vancomycin. Regular, low fiber diet Will Saline lock out of bed Hopefully home later today (2) Appendicitis with nonoperative management: Status: Acute Assessment and plan: Hopefully will be able to wait a total of 4-6 weeks and then do an interval appendectomy Subjective Subjective Interval history since last seen: Mrs Cruz is doing well. She did have one episode of fever last evening. HAsn't had a BM since last night around 10. She is feeling better and has an appetite. Exam Const General: cooperative, comfortable and no acute distress Orientation: alert and oriented x3 HENMT Head: normocephalic and atraumatic Resp Effort & Inspection: normal respiratory effort Auscultation: clear to auscultation bilaterally Cardio Rate: regular rate Rhythm: regular rhythm GI Inspection: normal to inspection Palpation: soft, no hepatosplenomegaly and nontender Auscultation: normal bowel sounds Objective Last Vital Signs Temp 98.6 F 04/17/21 08:01 Pulse 78 04/17/21 08:01 Resp 16 04/17/21 08:01 BP 161/69 H 04/17/21 08:01 Pulse Ox 97 04/17/21 08:01 Laboratory Results - last 24 hr 04/15/21 04/17/21 19:30 06:10 WBC 10.73 RBC 3.99 Hgb 11.5 Hct 35.5 L MCV 89.0 MCH 28.8 MCHC 32.4 RDW 12.8 Plt Count 249 MPV 10.7 Immature Gran % 0.4 Neutrophils % 74.7 Lymphocytes % 14.8 Monocytes % 8.1 Eosinophils % 1.6 Basophils % 0.4 Nucleated RBC % 0 Absolute Neutrophils 8.02 H Absolute Lymphocytes 1.59 Absolute Monocytes 0.87 H Absolute Eosinophils 0.17 Absolute Basophils 0.04 Stool Campylobacter PCR Negative Stool Salmonella PCR Negative Stool Shigella PCR Negative Shiga Toxin (PCR) Negative
--- NOTE | 2021-04-17 10:13 | CMPROGNOTE_ITS ---
- If Service Date Differs Date of service: 04/17/21 Time of Service: 10:14 Care Management Progress Note S/O: A: Kelly is a 75 year old female admitted to [facility] on 04/15/21 with C.Diff Colitis. P: Kelly will return home when ready per MD. She will follow up with surgical services, her PCP and plan of care as prescribed. She will transport via private vehicle with her daughter. CM will continue to follow.
[2021-04-17 16:03] VITALS: BP 159/85; PULSE 77; RESP 16; TEMP 36.5; O2SAT 95
--- NOTE | 2021-04-17 16:16 | DSE_ITS ---
Date of service: 04/18/21 Time of Service: 08:00 DS: Diagnosis Discharge Diagnosis (1) C. difficile colitis: Status: Acute (2) Appendicitis with nonoperative management: Status: Acute Discharge Plan Disposition Patient Disposition: HOME Condition: Good Discharge Details Reason For Visit: C. diff colitis Admit Date/Time: 04/15/21 19:46 Admit Provider: Theresa Lara Attending Provider: Theresa Lara Primary Care Provider: Carlota Talbot [facility] Course Hospital Course: Patient was in the hospital 5 6 through 5 9 with a perforated appendicitis at least 10 days out. She was treated nonmedically and was discharged home on Augmentin. On 516 she came back to the ER complaining of severe abdominal pain cramping and voluminous diarrhea. She had a 20,000 white count and her C. difficile was positive. She was admitted for IV Flagyl and p.o. vancomycin, hydration and supportive care. She is doing well. She is afebrile. Her white count is down to 10. She is having less than 4 stools a day. No bleeding. Minimal abdominal pain and cramping. She is tolerating a regular diet. Lungs are clear. She has no urinary frequency or feeling like she cannot completely empty her bladder. She has no breakdown. She has no lower extremity pain redness or swelling. She will be discharged home with a prescription for Vanco for 14 days in total. Probiotics for 30 days. And follow-up in the clinic in a week. Home Meds and New Rx's Prescriptions: New Prevalite 4 gram Powder In Packet 1 packet PO BID PRN (Reason: loose stool. Do not take more than 2 a day ) Qty: 42 RF: 3 dicyclomine 10 mg Capsule 10 mg PO QID PRN PRN (Reason: Abdominal Pain) Qty: 30 RF: 0 vancomycin [Vancocin] 250 mg capsule 250 mg PO QID Qty: 12 RF: 0 Bio-K plus 50 billion cell capsule,delayed release(DR/EC) 1 cap PO DAILY Qty: 30 RF: 0 Continued calcium carbonate [Calcium 600] 600 MG tablet 600 mg PO DAILY RF: 0 carboxymethylcellulose sodium [Lubricant Eye Drops] 15 ML drops 15 ml Ophthalmic DAILY PRN PRNRF: 0 ascorbate calcium (vitamin C) 500 MG tablet 500 mg PO DAILY PRN PRNRF: 0 garlic 1 EACH capsule 1 ea PO DAILY RF: 0 cholecalciferol (vitamin D3) [Vitamin D3] 400 UNIT capsule 400 unit PO DAILY PRN PRNRF: 0 ibuprofen 200 mg Tablet 400 mg PO PRN PRNRF: 0 acetaminophen 500 mg Capsule 1,000 mg PO PRN PRNRF: 0 Discontinued amoxicillin-pot clavulanate [Augmentin] 500-125 mg tablet 1 tab PO BID Qty: 20 RF: 0 loperamide [Imodium] 2 mg Capsule 4 mg PO PRN PRNRF: 0 Discharge Instructions Additional Instructions: -ok to shower -soft/low fiber diet for 3-5 days. Advance as tolerated -no lifting over 10#'s or strenuous activity x 1 week. -F/u W Dr. Russell in clinic week of 04/23 -probiotics for 30 days -stop augmentin -finish all of the Vanco -ok to drive in 24 hrs -cholestyramine as needed to have a formed stool. Do not take more than twice a day. As bowels become more firm- you may have to decrease the frequency and dose (1/2 dose). -8-12 glasses water a day Gastrointestinal Soft Diet Overview Overview ? What is a gastrointestinal soft diet? This diet is soft in texture, low in fiber, and easy to digest. The goal is to decrease) [email or web address] ?in the bowel that may cause and discomfort. This diet is often used after abdominal surgery or as a transitional diet after flares. ? ? Meats & Meat Substitutes ?? Foods Allowed: Chicken, turkey, fish, tender cuts of beef and pork, ground meats, eggs, creamy nut butters, tofu, skinless hot dogs, sausage patties without whole spices ?? Foods to Avoid : Tough, fibrous meats with gristle, meat with casings (hot dogs, sausage, kielbasa), lunch meats with whole spices, shellfish, beans, chunky peanut butter, nuts Fruits and Juices ?? Foods Allowed: Fruit juices without pulp, banana, avocado, applesauce, canned peaches and pears, cooked fruit without the skin/seeds ?? Foods to Avoid: Juices with pulp, fresh fruit (except banana and avocado), dried fruits, canned fruit cocktail and pineapple, coconut, frozen/thawed berries Vegetables ?? Foods Allowed: Well-cooked or canned vegetables, potatoes without skin, tomato sauces, vegetable juice ?? Foods to Avoid: Raw vegetables, all corn, all mushrooms, stewed tomatoes, potato skins, stir-lozano vegetables, sauerkraut, pickles, olives, all dried beans, peas, and legumes ? Cereals and Grains ?? Foods Allowed: Low- fiber dry or cooked cereals (less than 2 grams fiber per serving), white rice, pasta, macaroni, or noodles ?? Foods to Avoid: Cereals with nuts, berries, dried fruits, whole grain cereals, bran cereals, granola, brown or wild rice, whole grain pasta Breads and Crackers ?? Foods Allowed: White/refined breads and rolls, plain bagel, toast, plain crackers, tino crackers ?? Foods to Avoid: Whole grain breads- including white whole grain; bread/ rolls with raisins, nuts or seeds, multi-grain crackers Dairy ?? Foods Allowed: Milk, cheese, yogurt, milkshakes, pudding, ice cream, cottage cheese, sherbet ;?lactose free or low lactose versions if lactose intolerant ?? Foods to Avoid: Dairy product mixed with fresh fruit (except banana), berries, nuts or seeds Desserts ?? Foods Allowed: Plain cake, pudding, custard, ice cream, sherbet, gelatin, fruit whips ?? Foods to Avoid: Any dessert that contains nuts, dried fruits, coconut, or fruits with seeds Herbs and Spices ?? Foods Allowed: All ground spices or herbs, salt ?? Foods to Avoid: Whole spices such as peppercorns, whole cloves, anise seeds, celery seeds, jacqueline, maribell seeds, and fresh herbs Snacks/Other Foods ?? Foods Allowed: Sugar, honey, jelly, mayonnaise, mustard, soy sauce, oil, butter, margarine, marshmallows, cookies without dried fruits or nuts, snack chips and pretzels using refined flours ?? Foods to Avoid: Carbonated beverages, jams or jellies with seeds, popcorn After several weeks, slowly start to reintroduce the ?Foods to Avoid? back into your diet unless your doctor has told you otherwise. Try a small portion of one of these foods each day. If it does not bother you within 24 hours, it can be added to your diet. Continue to add new foods in this way. Some people may continue to have food sensitivities and may need to continue to avoid certain foods. If you cannot tolerate a food, avoid that food for a few weeks before you try it again. Guidelines when eating 1.? Avoid any food that you cannot tolerate or that causes gas, bloating, or stomach pain. 2.? Make time for your meals. Do not eat while you are in a hurry. Cut your food into small pieces. Chew each bite to a mashed potato consistency. Do not eat when you cannot concentrate on chewing well. 3.? Drink at least 6-8 cups of fluid per day? Fluids include: water, coffee, tea, juice, milk, popsicles, soups, gelatin, pudding, ice cream, sherbet, and yogurt. In addition, choose caffeine-free beverages more often, especially if you are having?diarrhea. 4.? A daily multivitamin may be recommended if diet is limited in amounts or variety of foods. Do not take any herbal supplements without first checking with your doctor. ? Stand Alone Forms: Nursing Discharge Form Activity:: see above Equipment/Supplies:: No Equipment Needed Diet:: see above DS: Summary Time Spent with Patient providing and/or coordinating discharge services: Less than 30 minutes Status at Discharge Functional status at discharge: independent ambulation Overall status at discharge: patient is progressing back to baseline Mental Status: mental status grossly normal Speech and Movement: speech and movement normal Mood: congruent mood Affect: normal affect Exam Psych Mental Status: mental status grossly normal Speech and Movement: speech and movement normal Mood: congruent mood Affect: normal affect DS: Data Vitals/I&O Vitals and I&O: Vital Signs Temperature 36.5 C 04/17/21 16:03 Temperature Source Temporal Artery Scan 04/17/21 16:03 Pulse 77 04/17/21 16:03 Pulse Rhythm Regular 04/17/21 15:48 Respiratory Rate 16 04/17/21 16:03 Respiratory Effort Non-Labored 04/17/21 15:48 Respiratory Depth Normal 04/17/21 15:48 Respiratory Pattern Normal 04/17/21 15:48 Blood Pressure 159/85 H 04/17/21 16:03 Blood Pressure Mean 90 04/15/21 20:45 Blood Pressure Position Supine 04/15/21 16:57 Pulse Oximetry 95 04/17/21 16:03 Oxygen Delivery Method Room Air 04/17/21 16:03 Oxygen Flow Rate 0 04/17/21 16:03 Pain Level 0 04/17/21 08:01 Intake & Output 04/16/21 04/17/21 04/17/21 23:59 11:59 23:59 Intake Total 2200 / 3935 1298.667 / 1538.667 240 / 1538.667 Output Total 950 / 2575 700 / 1100 400 / 1100 Balance 1250 / 1360 598.667 / 438.667 -160 / 438.667 Intake: IV 1100 / 2300 818.667 / 818.667 Oral 1100 / 1635 480 / 720 240 / 720 Output: Urine 950 / 2500 700 / 1100 400 / 1100 Other: Urine Color Yellow Yellow Pale Yellow Urine Appearance Clear Clear Clear Urine Odor Normal Normal Normal Stool Size Small Small Small Stool Characteristics Liquid Soft Soft Brown Brown Brown Voiding Methods Toilet Toilet Toilet Data Completed and Pending Labs on day of discharge: Labs from last 24 hours 04/17/21 04/15/21 06:10 19:30 WBC 10.73 RBC 3.99 Hgb 11.5 Hct 35.5 L MCV 89.0 MCH 28.8 MCHC 32.4 RDW 12.8 Plt Count 249 MPV 10.7 Immature Gran % 0.4 Neutrophils % 74.7 Lymphocytes % 14.8 Monocytes % 8.1 Eosinophils % 1.6 Basophils % 0.4 Nucleated RBC % 0 Absolute Neutrophils 8.02 H Absolute Lymphocytes 1.59 Absolute Monocytes 0.87 H Absolute Eosinophils 0.17 Absolute Basophils 0.04 Stool Campylobacter PCR Negative Stool Salmonella PCR Negative Stool Shigella PCR Negative Shiga Toxin (PCR) Negative Preliminary micro results at discharge 04/15/21 18:20 Blood Culture - Preliminary Blood NO GROWTH 24 HOURS 04/15/21 18:40 Blood Culture - Preliminary Blood NO GROWTH 24 HOURS [facility] Medical History Antibiotic-associated diarrhea Appendicitis with nonoperative management Cataracts, bilateral Colitis E. coli UTI Hypertension Surgical History History of cataract removal with insertion of prosthetic lens bilateral S/P left knee arthroscopy Social History Smoking/Tobacco Use Status: Never Smoking risk assessment performed?: Yes Alcohol Intake: current Details: rare ingestion Drug use: Never Household members: other Details: She is . Her daughter lives in a separate unit upstairs. Do you feel safe at home: Yes Do you feel safe in your relationship?: Yes
--- NOTE | 2021-04-17 17:16 | PDOC.CMDIS ---
- If Service Date Differs Date of service: 04/17/21 Time of Service: 17:16 LACE Index Scoring Tool - Questions: Length of Stay (in days): 2 Acuity (Admit via E.D.?): Yes Comorbidities: Liver or Renal Disease E.D. Visits: 2 - Answers: Total Score: 12 Risk of Readmission: High Risk Care Management Discharge Reason for Hospitalization: C.diff colitis Discharge Plan: Kelly will return home with no services at this time. Her daughter will drive her home via private vehicle. She will follow up with surgical services, her PCP and her discharge plan of care. She is happy to be going home. Patient/Family Education Needs: Review discharge instructions regarding activity levels and medications, discussion of self care needs.
[2021-04-17] MEDS: Enoxaparin 40 MG/0.4 ML SYR SC (21:35)
[2021-04-18 00:09] VITALS: BP 137/79; PULSE 76; RESP 18; TEMP 36.9; O2SAT 96
[2021-04-18] MEDS: Cholestyramine/Aspartame PKT 1 EACH PO (07:00)
[2021-04-18 08:39] VITALS: BP 140/60; PULSE 69; RESP 17; TEMP 36.6; O2SAT 95
== END 2021-04-18 11:43 | disposition home or self-care (01) | DRG 372 ==
LOC: ER 20:25 → MS 21:26
PROVIDERS: Admitting Provider Surgery; Emergency Provider Physician Assistant; PCP Family Medicine; Visit Provider Surgery
DX: A04.72 Enterocolitis due to Clostridium difficile, not specified as recurrent (principal); N39.0 Urinary tract infection, site not specified; K35.80 Unspecified acute appendicitis; N18.9 Chronic kidney disease, unspecified; I12.9 Hypertensive chronic kidney disease with stage 1 through stage 4 chronic kidney disease, or unspecified chronic kidney disease; B96.20 Unspecified Escherichia coli [E. coli] as the cause of diseases classified elsewhere
CPT/HCPCS: 36410; 36415; 80053; 87040; 87493; 87505; 87635; 93005; 99223; 99238; 99285; J1650; 74177; 81003; 81015; 83605; 83735; 83993; 84484; 85025; 86140; 93010; J3490

== ENCOUNTER → 2021-04-24 10:28 | Outpatient (BNVA) | payer MEDICARE, BC, SELFPAY | PROVIDERS: Visit Provider Surgery | DX: Z12.11 Encounter for screening for malignant neoplasm of colon (principal); A04.72 Enterocolitis due to Clostridium difficile, not specified as recurrent; K37 Unspecified appendicitis ==

== ENCOUNTER 2021-05-04 10:18 | Outpatient (REF) | payer MEDICARE, BC, SELFPAY | END 2021-05-04 10:19 | disposition home or self-care (01) | LOC: LBN 10:18 | PROVIDERS: Visit Provider Physician Assistant | DX: N39.0 Urinary tract infection, site not specified (principal) | CPT/HCPCS: 87077; 87086; 87186 ==

== ENCOUNTER 2021-06-12 06:10 | Day surgery (SDC) | payer MEDICARE, BC, SELFPAY ==
--- NOTE | 2021-06-11 14:47 | W.PM.HP.N ---
Date of service: 06/12/21 Time of Service: 07:00 Assessment and Plan Assessment and plan (1) C. difficile colitis: Status: Acute Assessment and plan: Thank you for allowing me to participate in the care of this Patient. A copy of the Endoscopy report will be forwarded to your office. Informed consent is obtained for the procedural (explained in simple layman's terms that the pt and/or family could understand) explaining risks vs benefits and alternatives to the procedure and consequences if we do not do the procedure and need/rational for the procedure. Risks include but are not limited to: bleeding, infection, perforation of colon. This would necessitate emergency surgery to repair the damage w/ possible ostomy; and other associated complications w/ the required surgery. Also complications of anesthesia including aspiration, MN/CVA/. (2) Antibiotic-associated diarrhea: Status: Acute (3) Hypertension: Status: Chronic Qualifiers: Hypertension type: unspecified Qualified Code(s): I10 - Essential (primary) hypertension (4) E. coli UTI: Status: Acute (5) Appendicitis with nonoperative management: Status: Acute (6) CKD (chronic kidney disease): Status: Chronic Qualifiers: Chronic kidney disease stage: unspecified stage Qualified Code(s): N18.9 - Chronic kidney disease, unspecified History of Present Illness Narrative: Ms Cruz is an 75-year-old female who is here today to discuss her for screening colonoscopy. She was admitted on April 05 for appendicitis with a large phlegmon. She was treated nonsurgically with antibiotics by Dr. Montoya. She was discharged on Augmentin. On April 15 she came back to the emergency department because of severe diarrhea. She was diagnosed with C. difficile colitis and admitted for that. She was started on vancomycin p.o. She was discharged a week ago on antibiotics. She comes in today to follow-up for that but also to discuss a colonoscopy. She is doing well from her diarrhea standpoint. She is having formed stools. She has decreased her cholestyramine to a full dose in the morning and half a dose at night. I recommend she continue to decrease that over the next few days as her stools are formed. She does not want to end up constipated. She has never had a colonoscopy before. Prior to doing an elective interval appendectomy it was felt that she should undergo a colonoscopy to make sure that there was not anything else going on. The patient does not have a family history of colon cancer. Ms Nancy weaver 75-year-old female who is never undergone a colonoscopy. She was recently admitted for appendicitis with a large phlegmon and treated nonoperatively with antibiotics. She unfortunately then developed C. difficile colitis due to the antibiotics. She has now slowly recovering from that. She does need to undergo a interval laparoscopic appendectomy at some point. Because she has never had a screening colonoscopy it was felt that this would be a good opportunity to do that prior to having a laparoscopic appendectomy. The procedure was discussed in detail using a pamphlet with pictures. We also reviewed the preop cleansing the day before and the soft diet 2 days before. The patient is vaccinated so we will not do a Covid test. Risks, benefits and complications have been reviewed. Complications include but are not limited to bleeding, pain, perforation, missed small lesion/polyp, sore throat, aspiration and adverse reaction to the medications. Questions were entertained and answered to their satisfaction and they wished to proceed. No guarantees were given or implied. Review of Systems All systems reviewed & are unremarkable except as noted in HPI and below PFSH Medical History Antibiotic-associated diarrhea Appendicitis with nonoperative management Cataracts, bilateral Colitis E. coli UTI Hypertension Surgical History History of cataract removal with insertion of prosthetic lens bilateral S/P left knee arthroscopy Social History Smoking/Tobacco Use Status: Never Smoking risk assessment performed?: Yes Alcohol Intake: current Alcohol Intake frequency: holidays/special occasions only Details: rare ingestion Drug use: Never Substance use type: does not use Household members: other Details: She is . Her daughter lives in a separate unit upstairs. Current gender identity: female Do you feel safe at home: Yes Do you feel safe in your relationship?: Yes Additional Social history: lives alone Meds Allergies and Home Medications Allergies Allergy/AdvReac Type Severity Reaction Status Date / Time No Known Allergies Allergy Verified 06/12/21 06:20 Home Medications Medication Instructions Recorded Confirmed Type ascorbate calcium (vitamin C) 500 mg PO DAILY PRN PRN 05/11/13 06/12/21 History calcium carbonate [Calcium 600] 600 mg PO DAILY 05/11/13 06/12/21 History carboxymethylcellulose sodium 15 ml OPHTHALMIC DAILY PRN PRN 05/11/13 06/12/21 History [Lubricant Eye Drops] cholecalciferol (vitamin D3) 400 unit PO DAILY PRN PRN 05/11/13 06/12/21 History [Vitamin D3] garlic 1 ea PO DAILY 05/11/13 06/12/21 History ibuprofen 400 mg PO PRN PRN 04/05/21 06/12/21 History acetaminophen 1,000 mg PO PRN PRN 04/15/21 06/12/21 History cholestyramine-aspartame 1 packet PO BID PRN #42 ea 04/17/21 06/12/21 Rx [Prevalite] Exam Const General: cooperative, healthy appearing, comfortable, no acute distress, well developed and well groomed Nutritional Appearance: average body habitus and well nourished Orientation: alert, awake and oriented x3 HENMT Head: normal to inspection, normocephalic and atraumatic Ears: hearing grossly normal bilaterally and external ears normal General nose exam: external nose normal Face and sinus: normal facial exam and sinuses nontender Mouth: oral mucosae normal, lip normal, tongue normal and moist mucous membranes Teeth and gingiva: dentition normal Eyes General: appearance normal, both eyes and all related structures Conjunctivae: conjunctivae normal Sclera: sclerae normal Pupils: PERRL Neck Neck: normal visual inspection and full ROM Chest Chest: normal inspection of the chest Resp Effort & Inspection: normal respiratory effort, able to speak in complete sentences, no cough, no nasal flaring, not tachypneic and no use of accessory muscles Auscultation: clear to auscultation bilaterally, no rales, no rhonchi and no wheezes Cardio Jugular venous pressure: no JVD Rate: regular rate Rhythm: regular rhythm GI Inspection: normal to inspection, no edema and non-distended Palpation: soft, no masses, nontender and No ascites Auscultation: normal bowel sounds Skin General skin exam: no rashes or lesions noted Trauma: no lacerations or abrasions Neuro General: patient alert, patient oriented x3, oriented, gait normal, moves all extremities, no focal motor deficits and CN's II-XI intact bilaterally Cognition: normal cognition Speech: speech normal Gait: normal gait Motor: muscle tone normal throughout Extrem General: normal to inspection, full ROM and no clubbing, cyanosis or edema Psych Appearance: grossly normal and well kempt Mental Status: mental status grossly normal Speech and Movement: speech and movement normal Affect: normal affect
[2021-06-12 06:26] VITALS: BP 140/85; PULSE 94; RESP 16; TEMP 36.9; O2SAT 97
[2021-06-12] MEDS: Lactated Ringers 1,000 ML 80 ML IV (06:54)
--- NOTE | 2021-06-12 07:08 | W.ANESPRE ---
General Info Date of Service Date Performed: 06/12/21 Height: 5 ft 7 in Weight: 64.3 kg Body Mass Index (BMI): 22.1 Surgical Procedure: Operation Date: 06/12/21 07:35 Proposed Procedures Side Surgeon jarek Lara, DO Meds Allergies and Home Medications Allergies Allergy/AdvReac Type Severity Reaction Status Date / Time No Known Allergies Allergy Verified 06/12/21 06:20 Home Medication Medication Instructions Recorded ascorbate calcium (vitamin C) 500 mg PO DAILY PRN PRN 05/11/13 calcium carbonate [Calcium 600] 600 mg PO DAILY 05/11/13 carboxymethylcellulose sodium 15 ml OPHTHALMIC DAILY PRN PRN 05/11/13 [Lubricant Eye Drops] cholecalciferol (vitamin D3) 400 unit PO DAILY PRN PRN 05/11/13 [Vitamin D3] garlic 1 ea PO DAILY 05/11/13 ibuprofen 400 mg PO PRN PRN 04/05/21 acetaminophen 1,000 mg PO PRN PRN 04/15/21 cholestyramine-aspartame 1 packet PO BID PRN #42 ea 04/17/21 [Prevalite] Current Visit Medications: Current Medications Generic Name Dose Route Start Last Admin Trade Name Freq PRN Reason Stop Dose Admin Hyoscyamine Sulfate 0.125 mg 06/11/21 14:48 Hyoscyamine 0.125 Mg Sl/Oral/Chew SL DIRECTED PRN Ringer's Solution 1,000 mls @ 80 mls/hr 06/12/21 06:00 06/12/21 06:54 IV 07/11/21 23:59 80 mls/hr INFUSION KAREN Administration IV Miscellaneous Supplies 1 each 06/12/21 06:00 Iv Access IV 07/11/21 23:59 DIRECTED KAREN Ondansetron HCl 4 mg 06/11/21 14:48 Ondansetron 4 Mg/2 Ml Vial IVP Q4H PRN PRN Nausea / Vomiting Sodium Chloride 0 ml 06/12/21 06:00 Normal Saline Flush 10 Ml Syr IV 07/11/21 23:59 PRN PRN Sodium Chloride 0 ml 06/12/21 06:00 Normal Saline 10 Ml Vial IJ 07/11/21 23:59 DIRECTED PRN Sterile Water 0 ml 06/12/21 06:00 Water,Injection,Sterile 10 Ml Vial IJ 07/11/21 23:59 DIRECTED PRN PFSH Active Problems Active Problems: Problem Status Onset Code C. difficile colitis A04.72 Antibiotic-associated diarrhea K52.1, T36.95XA Hypertension I10 E. coli UTI N39.0, B96.20 Appendicitis with nonoperative management K37 CKD (chronic kidney disease) N18.9 Medical History Medical History Antibiotic-associated diarrhea Appendicitis with nonoperative management Cataracts, bilateral Colitis E. coli UTI Hypertension Surgical History Surgical History History of cataract removal with insertion of prosthetic lens bilateral S/P left knee arthroscopy Tobacco Smoking/Tobacco Use Status: Never Alcohol Alcohol Intake: current Alcohol intake frequency: holidays/special occasions only Details: rare ingestion Substance Use Substance use: Never Substance use type: does not use Vital Signs and Lab Results Vital Signs Most Recent Vital Signs in EMR: Most Recent Vital Signs Temp Pulse Resp BP Pulse Ox 36.9 C 94 H 16 140/85 97 06/12/21 06:26 06/12/21 06:26 06/12/21 06:26 06/12/21 06:26 06/12/21 06:26 Lab Results Blood Type / Crossmatch: No Data to Display Complete Blood Count: No Data to Display Complete Metabolic Panel: No Data to Display Liver Function Panel: No Data to Display Coagulation Panel: No Data to Display Cardiac Panel: No Data to Display Arterial Blood Gas: No Data to Display Venous Blood Gas: No Data to Display Pancreas Panel: No Data to Display Thyroid Panel: No Data to Display Infectious Disease: No Data to Display Blood Cultures: No Data to Display Toxicology Panel: No Data to Display Imaging and Studies Imaging and Studies EKG Summary: DATE/TIME OF SERVICE: 04/15/21 Conclusion Sinus rhythm...normal P axis, V-rate 60- 99 Anesthesia Assessment and Plan Anesthesia History Personal History: No History of Anesthesia Complications Family History: No Family History of Anesthesia Complications Exercise Tolerance Exercise Tolerance: Metabolic Equivalents>4 Pertinent Negatives Pertinent Negatives: No Symptoms of GERD and No Major Cardiovascular Symptoms or Complaints Cardiac & Pulmonary Exam Cardiac Exam: Normal S1/S2 Heart Sounds Pulmonary Exam: Clear Bilateral Breath Sounds Airway Exam Known Difficult Airway: No Mallampati Class: 2 Mouth Opening: Normal (> 3cm) Thyromental Distance: Greater than 3 cm Neck Range of Motion: Full ROM Neck Circumference: Normal Teeth Condition: Normal Dentition ASA Classification ASA Score: ASA 2 Emergency Case?: No NPO Status NPO Status: NPO Clears >2 hours, Solids >8 hours Anesthesia Plan Resuscitation Status: Full Code Anesthesia Technique: General Anesthesia Airway Planned: Natural Airway Monitors Used: Standard Monitors
[2021-06-12 07:13] VITALS: BMI 22.1
[2021-06-12 08:21] VITALS: BP 124/74; PULSE 79; RESP 14; TEMP 36; O2SAT 98
--- NOTE | 2021-06-12 08:22 | W.COLOREPORT ---
Date of service: 06/12/21 Time of Service: 08:23 Colonoscopy Report Date of procedure: 06/12/21 Pre-op diagnosis general: c diff/ruputred appendix Post-op diagnosis procedure note: other (severe diverticular dx ) Procedure: flex sig Surgeon: Theresa Lara Anesthesia Type: General:No Airway Estimated blood loss (mL): 0 Pathology: none sent Complications: None Disposition: same day Prep: Miralax/Dulcolax Retraction Time: 3 Procedure Description: After informed consent was obtained the patient was taken to the procedure room and placed in a left decubitous position. Monitors were applied and a time out was done. The patients name, date of , procedure, allergies to medications and metal in their body was reviewed. The patient was then sedated. Once sedated and comfortable a rectal exam was done. External exam shows exthemorrhoids/non-thrombosed. Internal exam revealed a normal sphincter tone and no palpable masses. The scope was then introduced and retrofelexed. no internal hemorrhoids were identified. The scope was then advanced to the left flexure. She has severe diverticular disease that does carry all the way to the splenic flexure. She has a very tight corner. I am unable to pass the scope around the corner. We did reposition her onto her back and try multiple pressure maneuvers. The scope does not slide and the mucosa is blanching. Also because of the severity of the diverticula, the procedure was abandoned for patient safety. The prep was good. She has severe diverticula. There are no signs of active bleeding or infection the scope was removed and the patient was woken up and taken back to Same day surgery in stable condition. Patient is going to have to have a barium enema as outpatient for completeness to visualize the right colon. This was ordered as an outpatient. She should follow-up with Dr. Russell in 2 weeks. The patient tolerated the procedure well and there were no immediate complications. Follow up: The patient does not require any further screening, unless they develop changes in bowel habits or other new gastrointestinal complaints.
[2021-06-12 08:48] VITALS: BP 151/85; PULSE 79; RESP 17; TEMP 36.4; O2SAT 98
--- NOTE | 2021-06-12 08:51 | PDOC.DSDIS_ITS ---
Discharge Plan Disposition Patient Disposition: HOME Condition: Good Discharge Details Reason For Visit: SCREENING Attending Provider: Theresa Lara Home Meds and New Rx's Prescriptions: No Action calcium carbonate [Calcium 600] 600 MG tablet 600 mg PO DAILY RF: 0 carboxymethylcellulose sodium [Lubricant Eye Drops] 15 ML drops 15 ml Ophthalmic DAILY PRN PRNRF: 0 ascorbate calcium (vitamin C) 500 MG tablet 500 mg PO DAILY PRN PRNRF: 0 garlic 1 EACH capsule 1 ea PO DAILY RF: 0 cholecalciferol (vitamin D3) [Vitamin D3] 400 UNIT capsule 400 unit PO DAILY PRN PRNRF: 0 ibuprofen 200 mg Tablet 400 mg PO PRN PRNRF: 0 acetaminophen 500 mg Capsule 1,000 mg PO PRN PRNRF: 0 Prevalite 4 gram Powder In Packet 1 packet PO BID PRN (Reason: loose stool. Do not take more than 2 a day ) Qty: 42 RF: 3 Discharge Instructions Additional Instructions: DSU Colonoscopy Post- Op Instructions Instructions for Everyone who is given Anesthesia: For your safety, please do the following for the next twenty-four (24) hours: *Do Not operate a motor vehicle (car, truck, motorcycle, etc.) *Do Not drink alcoholic beverages or use any recreational drugs for the first 24 hours or while taking pain medications. The medications in your body may have a reaction that can be dangerous. *Do Not make any important decisions or sign any important papers. Findings: Severe diverticulosis Dx incomplete colonoscopy- will require barium enema to visualize the right colon -F/u w/ Dr. Russell in 2 weeks time Follow up:Radiology will call to schedule barium enema 1. No lifting over 20 pounds or strenuous activity for the first 24 hours after your procedure. After 24 hours there are no restrictions on your activity but you may feel fatigued for a few days. 2. After you arrive home you may have a light meal and return to your normal diet as you can tolerate it without feeling sick to your stomach. 3. You may have a bloated, gaseous feeling in your belly (abdomen) after a colonoscopy. Passing gas and belching will help. Walking or lying down on your left side with your knees flexed may relieve the discomfort. Call the office at [phone] (Office) or [phone] (Hospital) right away if you notice any of the following: a.Vomiting of blood or ?coffee ground stools?. b.Rectal bleeding 1Tbsp, blood clots or continuous bleeding. c.Severe belly (abdominal) pain. d.A hard distended belly (abdomen) and an inability to pass gas. 4. Please don?t expect to have a normal BM (bowel movement) for 2-3 days after your procedure. 5. If there are questions regarding the findings of your procedure, please contact your doctor 6. If you are unable to contact your doctor with a problem, contact the hospital at [phone]. 7. Continue all your regular medications unless directed otherwise. I understand the above instructions and have no questions. Signature of Patient or Adult Escort Name of Responsible Adult Escort Signature of Nurse Date/Time Activity:: see above Diet:: see above Discharge Orders Discharge Orders: Discharge Order (Routine); Ordered 06/11/21 Ordered By: Theresa Lara DS: Diagnosis Discharge Diagnosis (1) C. difficile colitis: Status: Acute (2) Antibiotic-associated diarrhea: Status: Acute (3) Hypertension: Status: Chronic (4) E. coli UTI: Status: Acute (5) Appendicitis with nonoperative management: Status: Acute (6) CKD (chronic kidney disease): Status: Chronic (7) Diverticulosis: Status: Acute (8) Acute phlegmonous appendicitis: Status: Acute (9) Compression fracture of L1 lumbar vertebra: Status: Acute (10) Adrenal mass, left: Status: Acute
--- NOTE | 2021-06-12 10:22 | W.ANESPOSTOP ---
Postoperative Evaluation Date, Time and Location Date Performed: 06/12/21 Time Performed: 08:50 Patient Location: Day Surgery Unit Vital Signs Most Recent Imported Vital Signs: Most Recent Vital Signs Temp Pulse Resp BP Pulse Ox 36.4 C L 79 17 151/85 H 98 06/12/21 08:48 06/12/21 08:48 06/12/21 08:48 06/12/21 08:48 06/12/21 08:48 Pain Score Most Recent Pain Score: Most Recent Pain Score Pain Level 0 06/12/21 08:48 Assessment Mental Status: Awake (Alert & Oriented to Patient Baseline) Airway and Respiratory Function: Patent airway with normal (patient baseline) respiratory exam Cardiovascular Function: Hemodynamically Stable Hydration Status: Adequately Hydrated Nausea & Vomiting: No Nausea or Vomiting Pain: Pt. Denies Any Pain Peripheral Nerve Block: Patient did not receive a nerve block
== END 2021-06-12 09:45 | disposition home or self-care (01) ==
PROVIDERS: Visit Provider Surgery
PROC: 0DJD8ZZ Inspection of Lower Intestinal Tract, Via Natural or Artificial Opening Endoscopic (ICD-10-PCS; CPT 45378; principal; 2021-06-12 07:30)
DX: Z12.11 Encounter for screening for malignant neoplasm of colon (principal); K57.30 Diverticulosis of large intestine without perforation or abscess without bleeding; I10 Essential (primary) hypertension; Z53.09 Procedure and treatment not carried out because of other contraindication
CPT/HCPCS: G0105

== ENCOUNTER 2021-08-01 01:58 | Outpatient (CLI) | payer MEDICARE, BC, SELFPAY ==
--- NOTE | 2021-08-01 07:15 | DI.RAD_ITS ---
Exam(s) RF BARIUM ENEMA EXAM: RF BARIUM ENEMA CLINICAL HISTORY: incomplete COLONOSCOPY,C DIFF COLITIS,DIVERTICULOSIS,APPENDICITIS,K57.90 COMPARISON: No exams were available for comparison TECHNIQUE: 2D and realtime digital imaging was performed. CONTRAST MATERIAL: Barium contrast was administered. A single contrast barium enema was performed. FINDINGS: Diverticula are seen throughout the colon. No bowel wall thickening is seen. No strictures or intra luminal masses are present. The terminal ileum is identified and appears unremarkable. There is ref lux into the small bowel. The appendix is opacified with contrast and is grossly unremarkable. IMPRESSION: Colonic diverticulosis. RADIATION DOSE DELIVERED: janine Diaz=44.9 mGy
== END 2021-08-01 02:18 ==
PROVIDERS: PCP Nurse Practitioner Family; Visit Provider Surgery
DX: A04.72 Enterocolitis due to Clostridium difficile, not specified as recurrent (principal); K35.890 Other acute appendicitis without perforation or gangrene; K57.90 Diverticulosis of intestine, part unspecified, without perforation or abscess without bleeding
CPT/HCPCS: 74270

== ENCOUNTER 2021-09-27 09:19 | Outpatient (CLI) | payer MEDICARE, BC, SELFPAY ==
--- NOTE | 2021-09-27 09:00 | DI.RAD_ITS ---
Exam(s) XR HIP RT COMPLETE AP PELVIS EXAM: XR HIP RT COMPLETE AP PELVIS CLINICAL HISTORY: eval R hip pain. TECHNIQUE: 2D digital imaging was performed. COMPARISON: No exams were available for comparison FINDINGS: No fractures. Left hip appears unremarkable. However, there is severe advanced osteoarthritic narro wing of the right hip joint and large subarticular degenerative cysts are seen on both sides of the r ight hip joint. Also marginal osteophytes at the femoral head level IMPRESSION: Severe advanced osteoarthritic degenerative changes in the right hip. DATA REPOSITORY: RADIATION DOSE DELIVERED:
--- NOTE | 2021-09-27 09:00 | DI.RAD_ITS ---
Exam(s) XR KNEE RT 3V AP,LAT,KARYN EXAM: XR KNEE RT 3V AP,LAT,KARYN CLINICAL HISTORY: eval r kne pain. TECHNIQUE: 2D digital imaging was performed. COMPARISON: No exams were available for comparison FINDINGS: There is no evidence of fracture or prominent joint effusion. There are mild degenerative changes in the medial compartment and mild-moderate degenerative changes in the patellofemoral compartment. La teral compartment appears unremarkable. There are 2 loose intra-articular calcified bodies, both measuring approximately 7 by 3 millimeters. These are located posteriorly in the intercondylar notch. Mild chondrocalcinosis is noted in the medial compartment. IMPRESSION: Mild degenerative changes. Two calcified loose intra-articular bodies located posteriorly in the intercondylar notch region DATA REPOSITORY: RADIATION DOSE DELIVERED:
--- NOTE | 2021-09-27 09:00 | DI.RAD_ITS ---
Exam(s) XR KNEE LT 3V AP,LAT,KARYN EXAM: XR KNEE LT 3V AP,LAT,KARYN CLINICAL HISTORY: eval left knee pain/deformity. TECHNIQUE: 2D digital imaging was performed. COMPARISON: CR XR KNEE RT 3V AP,LAT,KARYN from 09/27/2021 FINDINGS: There is no evidence of acute fracture nor prominent joint effusion. However, there are significant degenerative changes. Advanced narrowing of the medial compartment is noted. Also moderate degenera tive changes in the lateral compartment as well as chondrocalcinosis in the lateral compartment. Adv anced degenerative changes in the patellofemoral compartment are also noted. In addition, there is a well-defined 10 by 6 millimeter calcific body seen on the medial aspect of th e knee joint, in the posteromedial corner IMPRESSION: Advanced degenerative changes as described above. 10 x 6 millimeter calcific body in the posteromedial aspect of the knee joint. DATA REPOSITORY: RADIATION DOSE DELIVERED:
== END 2021-09-27 09:20 | disposition home or self-care (01) ==
LOC: DIORS 09:19
PROVIDERS: PCP Nurse Practitioner Family; Referring Provider Nurse Practitioner Family; Visit Provider Student in an Organized Health Care Education/Training Program
DX: G89.29 Other chronic pain (principal); M25.561 Pain in right knee; M25.562 Pain in left knee; M16.11 Unilateral primary osteoarthritis, right hip; M17.12 Unilateral primary osteoarthritis, left knee; M17.11 Unilateral primary osteoarthritis, right knee
CPT/HCPCS: 73562; 99214; 73502

== ENCOUNTER 2021-10-09 01:38 | Outpatient (CLI) | payer MEDICARE, BC, SELFPAY ==
[2021-10-09 13:24] LABS: CREATININE 0.9 mg/dL (0.55-1.02)
== END 2021-10-09 01:39 | disposition home or self-care (01) ==
LOC: LOS 01:38
PROVIDERS: PCP Nurse Practitioner Family; Visit Provider Nurse Practitioner Family
DX: N18.9 Chronic kidney disease, unspecified (principal)
CPT/HCPCS: 36415; 82565

== ENCOUNTER 2021-12-20 13:07 | Outpatient (CLI) | payer MEDICARE, SELFPAY ==
--- NOTE | 2021-12-20 13:00 | DI.RAD_ITS ---
Exam(s) XR PELVIS AP EXAM: XR PELVIS AP CLINICAL HISTORY: PRE OP R POLI. TECHNIQUE: 2D digital imaging was performed. COMPARISON: CR XR HIP RT COMPLETE AP PELVIS from 09/27/2021 FINDINGS: No evidence of fracture. Again noted is severe advanced osteoarthritic narrowing [id number] in the right hip joint and there are large degenerative subarticular geodes in this joint also evident as w ell as marginal osteophytes. Findings are unchanged from the prior study listed above. The opposite -left hip appears unremarkable as do the sacroiliac joints. Disc space narrowing noted in the lower lumbar spine. IMPRESSION: Severe advanced osteoarthritic degenerative changes in the right hip, as evident on 09/27/2021 DATA REPOSITORY: RADIATION DOSE DELIVERED:
== END 2021-12-20 13:08 | disposition home or self-care (01) ==
LOC: DIORS 13:07
PROVIDERS: PCP Nurse Practitioner Family; Referring Provider Nurse Practitioner Family; Visit Provider Physician Assistant
DX: Z01.818 Encounter for other preprocedural examination (principal); M16.11 Unilateral primary osteoarthritis, right hip
CPT/HCPCS: 72170

== ENCOUNTER 2022-01-07 03:08 | Outpatient (CLI) | payer MEDICARE, SELFPAY ==
[2022-01-07 09:57] LABS: HCT 40.4 % (36.0-46.0); HGB 13.3 g/dL (11.2-15.7); MCH 29.9 pg (27.0-33.0); MCHC 32.9 % (32.0-36.0); MCV 90.8 fL (80-95); MPV 9.5 fL (8.0-11.0); Platelet Count 252 10^3/uL (130-400); RBC 4.45 10^6/uL (3.93-5.22); RDW 12.3 % (11.7-14.6); WBC 5.81 10^3/uL (4.4-10.8)
[2022-01-07 11:20] LABS: Anion Gap 8.9 mmol/L (3-11); BUN 29 mg/dL (7-18); CO2 30.1 mmol/L (21.0-32.0); CREATININE 0.9 mg/dL (0.55-1.02); Calcium 9.6 mg/dL (8.5-10.1); Chloride 105 mmol/L (98-107); Glucose 97 mg/dL (74-106); Potassium 4.2 mmol/L (3.5-5.1); Sodium 144 mmol/L (136-145)
[2022-01-07 12:17] LABS: Source Nasal/Nares
[2022-01-07 15:33] LABS: COVID-19 PCR Negative (Negative)
== END 2022-01-07 03:09 | disposition home or self-care (01) ==
LOC: LBO 03:08
PROVIDERS: PCP Nurse Practitioner Family; Visit Provider Student in an Organized Health Care Education/Training Program
DX: M25.551 Pain in right hip (principal); M16.11 Unilateral primary osteoarthritis, right hip; Z20.822 Contact with and (suspected) exposure to COVID-19; Z01.818 Encounter for other preprocedural examination; Z01.812 Encounter for preprocedural laboratory examination
CPT/HCPCS: 36415; 80048; 85027; 86850; 86900; 86901; 87635

== ENCOUNTER 2022-01-08 06:09 | Day surgery (SDC) | payer MEDICARE, SELFPAY ==
[2022-01-08] VITALS (8 sets, daily range): BP systolic 146–170; BP diastolic 62–85; PULSE 73–89; RESP 15–19; TEMP 36.1–36.6; O2SAT 92–99; BMI 22.6
--- NOTE | 2022-01-08 07:02 | W.ANESPRE ---
General Info Date of Service Date Performed: 01/08/22 Height: 5 ft 6 in Weight: 63.5 kg Body Mass Index (BMI): 22.6 Surgical Procedure: Operation Date: 01/08/22 07:50 Proposed Procedures Side Surgeon p Hip Total Hip Anterior Right Desmond Osorio MD Meds Allergies and Home Medications Allergies Allergy/AdvReac Type Severity Reaction Status Date / Time No Known Allergies Allergy Verified 01/08/22 06:26 Home Medication Medication Instructions Recorded carboxymethylcellulose sodium 15 ml OPHTHALMIC DAILY PRN PRN 05/11/13 [Lubricant Eye Drops] cholecalciferol (vitamin D3) 400 unit PO DAILY PRN PRN 05/11/13 [Vitamin D3] garlic 1 ea PO DAILY 05/11/13 Saccharomyces boulardii 250 mg 250 mg PO DAILY cap 08/13/21 capsule lipltpd-hdezybmxb-ofps 333 mg-133 1 tab PO DAILY tab 08/13/21 mg-8.3 mg tablet multivitamin 1 tab PO DAILY 08/13/21 omega 3,5,6,7,9 combination no.1 1 cap PO DAILY cap 08/13/21 700 mg-salmon oil 1,500 mg capsule ascorbic acid (vitamin C) 1,000 mg 1 g PO DAILY tab 12/20/21 tablet losartan 25 mg PO HS 01/07/22 acetaminophen 1,000 mg PO Q8H PRN #90 tab 01/08/22 aspirin 81 mg PO BID #60 tab 01/08/22 celecoxib 200 mg PO BID PRN #60 cap 01/08/22 docusate sodium [Colace] 100 mg PO BID PRN #6 cap 01/08/22 oxycodone 5 mg PO Q4H #10 tab 01/08/22 pantoprazole 40 mg PO DAILY #30 tab 01/08/22 Current Visit Medications: Current Medications Generic Name Dose Route Start Last Admin Trade Name Freq PRN Reason Stop Dose Admin Acetaminophen 1,000 mg 01/08/22 06:00 Acetaminophen 500 Mg Tab PO 01/08/22 16:00 PREOP KAREN Celecoxib 400 mg 01/08/22 06:00 Celecoxib 200 Mg Cap PO 01/08/22 16:00 PREOP KAREN Tranexamic Acid 1,000 mg/ 60 mls @ 360 mls/hr 01/08/22 06:00 Sodium Chloride IV 01/08/22 16:00 PREOP KAREN Ringer's Solution 1,000 mls @ 80 mls/hr 01/08/22 06:00 IV 02/06/22 23:59 INFUSION KAREN Cefazolin Sodium/Dextrose 2 gm in 50 mls @ 100 mls/hr 01/08/22 06:00 Ancef Duplex IVPB 02/06/22 23:59 PREOP KAREN IV Miscellaneous Supplies 1 each 01/08/22 06:00 Iv Access IV 02/06/22 23:59 DIRECTED KAREN Sodium Chloride 0 ml 01/08/22 06:00 Normal Saline Flush 10 Ml Syr IV 02/06/22 23:59 PRN PRN Sodium Chloride 0 ml 01/08/22 06:00 Normal Saline 10 Ml Vial IJ 02/06/22 23:59 DIRECTED PRN Sterile Water 0 ml 01/08/22 06:00 Water,Injection,Sterile 10 Ml Vial IJ 02/06/22 23:59 DIRECTED PRN PFSH Active Problems Active Problems: Problem Status Onset Code Arthritis of right knee M17.11 Arthritis of left knee M17.12 Arthritis of right hip M16.11 Bilateral knee pain M25.561, M25.562 Diverticulosis K57.90 Adrenal mass, left E27.8 Compression fracture of L1 lumbar vertebra S32.010A Hypertension I10 CKD (chronic kidney disease) N18.9 Medical History Medical History Acute phlegmonous appendicitis treated with antibiotics Antibiotic-associated diarrhea Appendicitis with nonoperative management Colitis E. coli UTI Surgical History Surgical History History of cataract removal with insertion of prosthetic lens bilateral History of flexible sigmoidoscopy (~06/12/21) S/P left knee arthroscopy Tobacco Smoking/Tobacco Use Status: Never Passive smoking exposure: Yes Second hand exposure: Yes Alcohol Alcohol Intake: current Alcohol intake frequency: holidays/special occasions only Details: rare ingestion Substance Use Substance use: Never Substance use type: does not use Vital Signs and Lab Results Vital Signs Most Recent Vital Signs in EMR: Most Recent Vital Signs Temp Pulse Resp BP Pulse Ox 36.6 C 89 16 150/75 H 98 01/08/22 06:31 01/08/22 06:31 01/08/22 06:31 01/08/22 06:31 01/08/22 06:31 Lab Results Blood Type / Crossmatch: Patient ABO/Rh A Positive 01/07/22 Antibody Screen NEGATIVE 01/07/22 Complete Blood Count: White Blood Count 5.81 10^3/uL (4.4-10.8) 01/07/22 09:48 01/07/22 Red Blood Count 4.45 10^6/uL (3.93-5.22) 01/07/22 09:48 01/07/22 Hemoglobin 13.3 g/dL (11.2-15.7) 01/07/22 09:48 01/07/22 Hematocrit 40.4 % (36.0-46.0) 01/07/22 09:48 01/07/22 Platelet Count 252 10^3/uL (130-400) 01/07/22 09:48 01/07/22 Complete Metabolic Panel: Sodium Level 144 mmol/L (136-145) 01/07/22 09:48 01/07/22 Potassium Level 4.2 mmol/L (3.5-5.1) 01/07/22 09:48 01/07/22 Chloride Level 105 mmol/L (98-107) 01/07/22 09:48 01/07/22 Carbon Dioxide Level 30.1 mmol/L (21.0-32.0) 01/07/22 09:48 01/07/22 Blood Urea Nitrogen 29 mg/dL (7-18) H 01/07/22 09:48 01/07/22 Creatinine 0.9 mg/dL (0.55-1.02) 01/07/22 09:48 01/07/22 Estimated GFR/1.73 m2 >= 60.00 (mL/min/1.73m2) 01/07/22 09:48 01/07/22 Calcium Level 9.6 mg/dL (8.5-10.1) 01/07/22 09:48 01/07/22 Glucose Level 97 mg/dL (74-106) 01/07/22 09:48 01/07/22 Liver Function Panel: No Data to Display Coagulation Panel: No Data to Display Cardiac Panel: No Data to Display Arterial Blood Gas: No Data to Display Venous Blood Gas: No Data to Display Pancreas Panel: No Data to Display Thyroid Panel: No Data to Display Infectious Disease: Coronavirus (COVID-19)(PCR) Negative (Negative) 01/07/22 09:55 01/07/22 Coronavirus 2019 Source Nasal/Nares 01/07/22 09:55 01/07/22 Blood Cultures: No Data to Display Toxicology Panel: No Data to Display Imaging and Studies Imaging and Studies Study information below may be from another EMR and interpreted by another provider. Please see original notes in EMR for more complete details. EKG Summary: DATE/TIME OF SERVICE: 04/15/21 Conclusion Sinus rhythm...normal P axis, V-rate 60- 99 Anesthesia Assessment and Plan Anesthesia History Personal History: No History of Anesthesia Complications Family History: No Family History of Anesthesia Complications Exercise Tolerance Exercise Tolerance: Metabolic Equivalents>4 Pertinent Negatives Pertinent Negatives: No Symptoms of GERD, No Major Cardiovascular Symptoms or Complaints and No Major Pulmonary Symptoms or Complaints Cardiac & Pulmonary Exam Cardiac Exam: Normal S1/S2 Heart Sounds Pulmonary Exam: Clear Bilateral Breath Sounds Implantable Cardiac Device Does patient have a Pacemaker or an ICD?: No Airway Exam Known Difficult Airway: No Mallampati Class: 2 Mouth Opening: Normal (> 3cm) Thyromental Distance: Greater than 3 cm Neck Range of Motion: Full ROM Neck Circumference: Normal Teeth Condition: Normal Dentition ASA Classification ASA Score: ASA 2 Emergency Case?: No NPO Status NPO Status: NPO Clears >2 hours, Solids >8 hours Anesthesia Plan Resuscitation Status: Full Code Anesthesia Technique: Spinal Anesthesia Airway Planned: Natural Airway Monitors Used: Standard Monitors
[2022-01-08] MEDS: Acetaminophen 500 MG TAB 1000 MG PO (07:04)
[2022-01-08] MEDS: Celecoxib 200 MG CAP 400 MG PO (07:04)
[2022-01-08] MEDS: Lactated Ringers 1,000 ML 80 ML IV (07:05)
--- NOTE | 2022-01-08 07:14 | W.PM.DSUDISC ---
Discharge Plan Disposition Patient Disposition: HOME Condition: Good Discharge Details Reason For Visit: Right hip DJD Attending Provider: Desmond Osorio Primary Care Provider: Renato Cain Home Meds and New Rx's Prescriptions: New celecoxib 200 mg capsule 200 mg PO BID PRN (Reason: pain) Qty: 60 RF: 1 aspirin 81 mg tablet,delayed release (DR/EC) 81 mg PO BID Qty: 60 RF: 0 acetaminophen 500 mg tablet 1,000 mg PO Q8H PRN (Reason: pain) Qty: 90 RF: 3 pantoprazole 40 mg tablet,delayed release (DR/EC) 40 mg PO DAILY Qty: 30 RF: 0 docusate sodium [Colace] 100 mg capsule 100 mg PO BID PRNQty: 6 RF: 0 oxycodone 5 mg tablet 5 mg PO Q4H Qty: 10 RF: 0 Continued zllerth-sfadvbdqo-nwwu 333-133-8.3 mg tablet 1 tab PO DAILY RF: 0 Complete [place] 700-1,500 mg-mg capsule 1 cap PO DAILY RF: 0 multivitamin [One Daily Multivitamin] Tablet 1 tab PO DAILY RF: 0 Saccharomyces boulardii [Daily Probiotic (S. boulardii)] 250 mg capsule 250 mg PO DAILY RF: 0 ascorbic acid (vitamin C) 1,000 mg tablet 1 g PO DAILY RF: 0 carboxymethylcellulose sodium [Lubricant Eye Drops] 15 ML drops 15 ml Ophthalmic DAILY PRN PRNRF: 0 garlic 1 EACH capsule 1 ea PO DAILY RF: 0 cholecalciferol (vitamin D3) [Vitamin D3] 400 UNIT capsule 400 unit PO DAILY PRN PRNRF: 0 losartan 25 mg tablet 25 mg PO HS RF: 0 Discontinued ibuprofen 200 mg Tablet 400 mg PO PRN PRNRF: 0 acetaminophen 500 mg Capsule 1,000 mg PO PRN PRNRF: 0 Discharge Instructions Additional Instructions: Total Hip Discharge Instructions Activity: The most important activity is to walk. You should try to take short walks a few times a day. You have no restrictions on movement or positioning, but do not try to force what you do. You will find some stiffness and weakness with hip flexion (lifting your knee). Do not try to strengthen this too early, continue to practice walking and stairs and this will come. - Outpatient physical therapy can be helpful to help return you to a normal gait and improve your flexibility and strength. This can start around 2 weeks. For some patients, it?s not necessary. Usually this is determined at the time of discharge or at the first post-operative visit. - You should wear the SHANTHI hose on both legs for 2 weeks. Dressing: Keep the surgical dressing in place for at least one week and up to two weeks is okay. After the first week it may be removed and replace with light gauze and tape or nothing. It may get wet after 3 days but avoid soaking the dressing. If it gets wet, just lightly pat dry. You may choose to cover with Saran Wrap or Cling wrap to keep dry. Medications: - You should take Tylenol and an anti-inflammatory Celebrex as your primary pain control medications. If the Celebrex is too expensive or not covered, please call the office for another alternative (Advil/Ibuprofen or Naproxen/Aleve). - You have been prescribed a stronger pain medication Oxycodone for breakthrough pain, take as needed as prescribed. - You have also been prescribed a stomach acid reduction agent Pantoprozole to help reduce stomach acid and reflux. - You will be taking Aspirin 81mg twice a day for DVT prevention unless instructed otherwise. - If you have constipation you should take Colace or Miralax (both heny-oml-ynaeneh). It takes most people 3-4 days to have a bowel movement. Follow-up: 2 weeks If you have any acute concerns or questions, please do not hesitate to contact the office at [phone]. You may contact Dr. Osorio with any questions after hours through the hospital at [phone] or on his cell phone at [phone]. Stand Alone Forms: Anesthesia Discharge Inst. Referrals: Desmond Osorio MD [ [facility] STAFF PHYSICIAN] - (01/21/2022 @ 11:00.) Equipment/Supplies: Walker Activity:: Activity as Tolerated Remove Dressings/Wound Care:: Do Not Remove Shower/Bathe:: 72 hours Diet:: As Tolerated Discharge Orders Discharge Orders: Discharge Order (Routine); Ordered 01/08/22 Ordered By: Desmond Osorio DS: Diagnosis Discharge Diagnosis (1) Arthritis of right hip: Status: Chronic
--- NOTE | 2022-01-08 07:15 | DI.RAD_ITS ---
Exam(s) XR HIP RT IN OR EXAM: XR HIP RT IN OR CLINICAL HISTORY: right osteoarthritis TECHNIQUE: 2D and realtime digital imaging was performed. CONTRAST MATERIAL: Refer to procedure report. COMPARISON: CR XR PELVIS AP from 12/20/2021 FINDINGS: Fluoroscopy was provided for Dr. Osorio during the performance of a right total hip replacement. Please refer to the procedure report for complete details. Ka,r=3.50 mGy IMPRESSION: RADIATION DOSE DELIVERED:
[2022-01-08] MEDS: ceFAZolin 2 GM/50 ML BAG IVPB (07:35)
[2022-01-08] MEDS: Bupivacaine 0.25% Pres-Free 30 ML VIAL (08:25)
[2022-01-08] MEDS: Ketorolac 30 MG/ML VIAL (08:25)
--- NOTE | 2022-01-08 09:11 | ROE_ITS ---
Date of service: 01/08/22 Time of Service: 09:11 Operative Note Operative Note DATE OF PROCEDURE: 01/08/22 PRE-OP DIAGNOSIS: Right Hip Osteoarthritis POST-OP DIAGNOSIS: same PROCEDURE: Right Anterior Total Hip Arthroplasty with Intraoperative Navigation SURGEON: Desmond Osorio HEADING UP MACHINE OPERATOR: Theresa Ambrose ANESTHESIA TYPE: Spinal Refer to Anesthesia Record ESTIMATED BLOOD LOSS: 200 PATHOLOGY: none sent TOURNIQUET TIME: 0 COMPLICATIONS: None Patient was transported to: PACU Patient's condition: stable Implants: 1. Depuy [place] Acetabular Component, 52mm 2. Depuy Acetabular Liner, [id number] 3. Depuy Corail High Offset Collared Femoral Stem, Size 11 4. Depuy Altrx Ceramic Femoral Head, Size 36+1.5mm Indications: I have seen Kelly in clinic for symptoms of severe hip arthritis, confirmed with radiographic findings. Kelly has exhausted nonoperative methods and was having significant limitations in daily function and desired better function and less pain. I discussed the technical details of a hip replacement. I explained the risks of the procedure to include, but not limited to, bleeding, infection, pain, stiffness, fracture, damage to nerves and vessels, damage to muscles and tendons, loosening, instability, leg length inequality, need for repeat procedure, blood clot and cardiopulmonary demise. Despite these risks, Kelly elected to proceed. Findings: There was significant signs of arthritis throughout the hip with eburnation and deformity of the superior femoral head. Procedure Description: Kelly was greeted in the preoperative holding area where the correct side was identified and marked. The consent was reviewed with the patient and signed. The history and physical was updated. All questions were answered. She was taken back to the operating room. A spinal anesthestic was then administered. The feet were wrapped with cast padding and Coban and then placed into the boot liners and then into the boots. Care was taken to protect the skin and make sure the heels were fully down and the boots were stable. The patient was then positioned onto the HANA table. Both legs were held in a neutral position. SCDs were applied. The patient was then slid down onto a peroneal post. Prophylactic antibiotics in the form of Cefazolin were administered. 1g of Tranxemic Acid was given intravenously within 30 minutes of incision. The right leg was then prepped with Chloraprep and draped in a standard fashion. A second prep with Chloraprep was performed prior to placement of a shower-curtain type drape with Iodine impregnated skin protection. A timeout to confirm correct identity, side and site, procedure, allergies, anesthesia, and medical concerns was performed. An obliquely oriented incision was made starting lateral to the ASIS and running distal over the Tensor Fascia Wilma (TFL) muscle belly toward the fibular head, approximately 10cm. The skin and soft tissue was dissected sharply, through Kasandra?s fascia, and to the fascia of the TFL. With the fascia and superior border of the IT band identified, the fascia was incised with a new knife just above any perforators from the IT band. The TFL muscle belly was bluntly dissected away from the fascia and moved laterally. The fat between TFL and rectus was identified to ensure the dissection was not within the TFL. Blunt dissection created space between abductors and the capsule and retractor was placed over the lateral femoral neck. The fibers of the rectus femoris tendon were identified and these were freed from the anterior capsule. A second cobra retractor was placed around the medial femoral neck. The TFL was further retracted laterally to show the deep fascia. Careful dissection through this layer identified three main crossing vessels of the lateral femoral circumflex. These were cauterized in multiple locations and then cut without any noticeable bleeding. The TFL was further released bluntly from the deep fascia to expose anterior hip capsule and fat The Wero orthopaedic retractor was then placed beneath the TFL and against sartorius and medial soft tissues to protect and retract the soft tissues. A T-capsulotomy was then performed starting at the superior lateral acetabulum and moving distally to the intertrochanteric ridge. These capsular flaps were tagged with a No. 1 Ethibond and elevated from within. The capsular flaps were released to the shoulder of the lateral neck and to the lesser trochanter to give excellent visualization of the proximal femur. A neck osteotomy was performed using an oscillating saw based on preoperative templates. This cut started in the shoulder and of the lateral neck and exited medially. The saw was at all times directed medially to avoid injury to the greater trochanter. Gross traction was applied to the leg and the osteotomy opened. The femoral head was removed with a corkscrew, making sure to protect the TFL on its exit. Traction was released after head removal. This was measured on the back table to determine the starting reamer size. Portions of the rectus obscuring visualization were minimally elevated off the superior acetabulum. An anterior retractor was placed over the anterior wall between capsule and labrum and attached to the Gripper retraction system. The femur was rotated to 90 degrees and medial capsule was fully released until the lesser trochanter was palpable and visible; the femur was returned to 30 degrees. A posterior retractor was placed similarly between capsule and labrum. This provided excellent visualization. The contents of the cotyloid fossa were removed with electrocautery and the labrum was removed with a knife. There was a notable floor osteophyte. There was significant chondromalacia of the superi or acetabulum. Acetabular reaming began with a 48mm reamer. This first reaming was directed anterior to posterior and medial to get down to the true floor. This was inspected and reamed until the true floor was reached. The anterior retractor was then released and entry and exit was provided by traction on the capsular flaps. I then reamed sequentially up to a 52mm reamer where good fit was obtained. The larger reamers were oriented based on anatomical reference of the anterior and lateral herrera to ensure proper abduction and anteversion. Positioning and size was confirmed with the fluoroscopy. A 52mm Depuy [place] acetabular component was selected. The acetabulum was reamed around the periphery with the selected acetabular size to prevent a rim fit. The deep tissues were irrigated. The acetabular component was then impacted in a position of about 40-45 degrees of abduction and 15-20 degrees of anteversion, using the patient?s anatomy as the ultimate landmark. Fluoroscopy was used to confirm this. There was excellent dental specialist of the acetabular component and the inserting handle was removed. The acetabular liner, Depuy [id number] polyethylene liner, was inserted and lined up with the tines of the acetabular component. There was no soft tissue interposition. The liner was then impacted into position and confirmed to be well-seated. A portion of the molly-articular cocktail was then injected around the acetabulum into the capsule and periosteum. This cocktail consisted of 50cc of 0.25% Bupivicaine and 20cc of Exparel and 30mg of Ketorolac. The leg was rotated to 120 degrees. Any remaining medial capsule was released until the lesser trochanter was easily palpable. A retractor was placed medially. The lateral capsule was further released into the shoulder to allow access to the greater trochanter. A Scott retractor was placed over the greater trochanter which allowed the trochanter to flip in front of the capsule for excellent exposure. The leg was brought down into maximal extension and 20 degrees of adduction while ensuring there was no impingement on the acetabulum. Any remnant capsule within the trochanter was released. Piriformis and obturator externis were identified and protected. There was excellent access to the proximal femur. The lateral neck remnant was removed with a rongeur. A blunt canal probe was used to identify the canal and trajectory for later broaching. A box osteotome initiated the broach course. A small curved rasp and a curved curette were used to work laterally. Broaching then began with a size 8 Corail broach. This was inserted manually around the trochanter and into the canal before mallet blows. The broach was seated to a few millimeters below the cut level based on the neck cut and the preoperative template. Sequential broaching was continued with the [employer] pneumatic broaching device until a tight fit was obtained with good rotational control of the femur. A trial standard neck was inserted along with a +1.5 trial head. The leg was brought out of extension and adduction and then reduced with traction and internal rotation. The leg was stable anteriorly in a position of 30 degrees of extension and 90 degrees of external rotation. Fluoroscopy was used to ensure there was no fracture and the stem was seated well. Leg lengths were checked with an AP pelvis and pelvic reference points. HubChilla navigation system was used to confirm appropriate positioning and leg length and offset. This seemed to correct the leg length appropriately but it undercorrected the offset. However, the high offset would give appropriately femoral offset and preserve leg length. This high offset neck was trialed and was stable and appeared to correctly recreate the leg length and offset based on the navigation. Once content with the desired offset and leg lengths, the leg was brought back into extension, external rotation and adduction. The periosteum and surrounding tissue was injected with remaining portion of the molly-articular cocktail. The proximal femur was irrigated as well as the deep tissues. The [employer] Corail high offset collared stem, size 11, was then manually inserted into the proximal femur making sure to control rotation. It was then malleted into position with light blows, giving breaks to allow bone expansion and decrease risk of fracture. The selected Depuy Altrx Ceramic Head, size 36+1.5mm, was then placed onto the clean and dry trunnion and secured with impaction onto the tapered fit. The leg was brought back out of extension and adduction and reduced with traction and internal rotation. Stability was confirmed with no shuck at 90 degrees of external rotation and 30 degrees of extension. No impingement through range of motion arc. Final x-ray images were obtained with fluoroscopy to confirm adequate positioning and no intraoperative fracture. The deep tissues were thoroughly irrigated with Irrisept chlorhexadine solution. The capsule was then reapproximated with the previously placed Ethibond sutures and #1 Vicryl. The TFL fascia was finally closed with a No. 2 Stratafix, barbed suture. Deep tissues were then reapproximated with 0 Vicryl and a running 2-0 Vicryl. The skin was closed with a running 4-0 Monocryl in a subcuticular fashion. This was reinforced with skin glue. A Mepilex silver dressing was applied. At the end of the case, all counts were correct. Kelly was transferred to the hospital bed without difficulty and suffering no apparent complication. She has a good prognosis. Physical therapy will start today and without restrictions, weight-bearing as tolerated. Aspirin 81mg BID will be used for DVT prophylaxis.
--- NOTE | 2022-01-08 10:38 | W.ANESPOSTOP ---
Postoperative Evaluation Date, Time and Location Date Performed: 01/08/22 Time Performed: 10:15 Patient Location: PACU Vital Signs Most Recent Imported Vital Signs: Most Recent Vital Signs Temp Pulse Resp BP Pulse Ox 36.2 C L 74 16 164/85 H 98 01/08/22 10:08 01/08/22 10:08 01/08/22 10:08 01/08/22 10:08 01/08/22 10:08 Pain Score Most Recent Pain Score: Most Recent Pain Score Pain Level 0 01/08/22 10:08 Assessment Mental Status: Awake (Alert & Oriented to Patient Baseline) Airway and Respiratory Function: Patent airway with normal (patient baseline) respiratory exam Cardiovascular Function: Hemodynamically Stable Hydration Status: Adequately Hydrated Nausea & Vomiting: No Nausea or Vomiting Pain: Pt. Denies Any Pain Peripheral Nerve Block: Regional nerve block not resolved at time of post operative discharge
--- NOTE | 2022-01-08 11:25 | PT.INIE ---
Date of service: 01/08/22 Time of Service: 11:25 PT Notes Visit Reasons: Right hip DJD Physical Therapy Day Surgery Initial Evaluation Date: 01/08/2022 Referring Doctor: Desmond Osorio MD PT Orders: PT CONSULT: Status post Ortho surgery. Status post anterior POLI. Precautions: WBAT on right LE with AD. Patient Profile/Admitting Diagnosis: Kelly is a 76-year-old female with degenerative joint disease of the right hip and is status post right anterior total hip arthroplasty on postoperative day 0. PMHX: Medical History (Updated 12/20/21 @ 13:28 by Theresa Ambrose) Acute phlegmonous appendicitis treated with antibiotics Antibiotic-associated diarrhea Appendicitis with nonoperative management Colitis E. coli UTI Surgical History History of cataract removal with insertion of prosthetic lens bilateral History of flexible sigmoidoscopy (~06/12/21) S/P left knee arthroscopy Social History/Home Situation: Lives in a private home with 3 steps to enter without rails. Daughter lives upstairs. Patient is independent with all aspects of ADLs without an assistive device prior to surgery. 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 Equipment Owned/DME: [facility], Subjective: Patient is so happy with how much painless in the hips with each step she takes. Objective: General Observation: Supine in stretcher. Mepilex Ag over surgical incision. TEDS to B legs. Mental Status: Alert and oriented x4 Pain: None ROM: Right Lower Extremity: Hip flexion WFL. Hip abduction WFL. Knee flexion WFL. Ankle dorsiflexion WFL. Ankle plantarflexion WFL. Left Lower Extremity: Hip flexion WFL. Hip abduction WFL. Knee flexion WFL. Ankle dorsiflexion WFL. Ankle plantarflexion WFL. Strength: Right Lower Extremity: Hip flexors 4/5. Hip abductors 4/5. Knee flexors 5/5. Knee extensors 4/5. Ankle dorsiflexors 5/5. Ankle plantarflexors 5/5. Left Lower Extremity:Hip flexors 5/5. Hip abductors 5/5. Knee flexors 5/5. Knee extensors 5/5. Ankle dorsiflexors 5/5. Ankle plantarflexors 5/5. Sensation: Intact as to pain and light pressure in bilateral lower extremities Bed Mobility/Transfers: Supine to sit supervision Sit to stand standby assist Stand to sit standby assist Bed to chair standby assist Gait: Tolerated level surface ambulation of 150 feet using front wheel walker with step through gait pattern without report of pain in the right hip. Was also able to use bilateral axillary crutches using three-point gait pattern for 10 feet. Denies headache, chest pain, and dizziness throughout activity. Stairs: Up and down four 6 inch steps and six 4 inch steps while using cane on 1 side and holding onto a rail with the other hand with step to gait pattern. Moderate verbal cueing provided for correct foot placement. Balance: Static Sitting: Normal Dynamic Sitting: Normal Static Standing: Fair Dynamic Standing: Fair Special Tests: Mobility Limitations Standardized Measure [facility] AM-PAC 6 clicks Basic Mobility Inpatient Short Form: Raw Score: 23 CMS Score: 11% deficit Informed Consent/Education: Patient instructed in purpose of PT consult. Education and training on initial set of exercises that can be done at home have been completed with patient. Assessment: Kelly requires the use of a front wheeled walker for all long distance ambulation to maximize independence and reduce fall risk at home. She will have the support of her daughter with anything that she needs at home. Patient presents with clinical signs and symptoms consistent with current/admitting diagnoses that have resulted to mobility limitations, gait instability, generalized weakness, and impairment of motor control as demonstrated by the following impairment level findings: 1. Decreased strength to right hip major muscle groups 2. Impaired standing balance 21123 moderate Impairments are contributing to the following functional limitations: 1. Inability to safely ambulate without assistive device 2. Increase completion time for mobility ADL performance 3. Increased fall risk Patient is assessed as a complexity based on the following: History: 76-year-old female with impairment level findings, functional limitations, and past medical history as indicated above Examination: Demonstrable impairment in strength, balance, and mobility level with underlying impairments and functional limitations as documented above Presentation: Evolving Decision Makin moderate complexity Goals: N/A. PT evaluation and 1-2 treatment sessions only for functional mobility training using recommended AD and for HEP instruction. Plan of Care/Treatment Plan: N/A. PT evaluation and 1-2 treatment session only for functional mobility training using recommended AD and for HEP instruction. DISCHARGE RECOMMENDATIONS: [] Home with no services [] [] Home with services [specify] [X] Home with outpatient PT. Home when medically cleared by orthopedic surgeon. Will benefit from outpatient PT services to facilitate return to full community ambulation without assistive device. [] SNF for continued rehabilitation [] [] [facility] [] [] SNF versus LTC based on ability to participate and progress [] TREATMENT CODE/TIME: 17410 x 24 minutes beginning at 11:25 AM. Thank you for the opportunity to participate in the care of this patient. Diann Kenney PT, DPT, CLT [facility] [place], [place]
== END 2022-01-08 13:53 | disposition home or self-care (01) ==
PROVIDERS: PCP Nurse Practitioner Family; Visit Provider Student in an Organized Health Care Education/Training Program
PROC: (CPT 27130; principal; 2022-01-08 07:30)
DX: M16.11 Unilateral primary osteoarthritis, right hip (principal); N18.9 Chronic kidney disease, unspecified; I12.9 Hypertensive chronic kidney disease with stage 1 through stage 4 chronic kidney disease, or unspecified chronic kidney disease
CPT/HCPCS: 20985; 27130; C1776; 97162; 73501; J0690; J1885; J2001; J2370; J2405

== ENCOUNTER 2022-01-21 11:42 | Outpatient (CLI) | payer MEDICARE, SELFPAY ==
--- NOTE | 2022-01-21 11:00 | DI.RAD_ITS ---
Exam(s) XR HIP RT COMPLETE AP PELVIS EXAM: XR HIP RT COMPLETE AP PELVIS CLINICAL HISTORY: 1st post op R POLI. TECHNIQUE: 2D digital imaging was performed. COMPARISON: XR HIP RT IN OR from 01/08/2022 . Also 01/08/2022 FINDINGS: There is stable position alignment of the components of the recently placed prosthesis of the right h ip. No fracture nor loosening IMPRESSION: DATA REPOSITORY: RADIATION DOSE DELIVERED:
== END 2022-01-21 11:43 | disposition home or self-care (01) ==
LOC: DIORS 11:42
PROVIDERS: PCP Nurse Practitioner Family; Referring Provider Nurse Practitioner Family; Visit Provider Student in an Organized Health Care Education/Training Program
DX: M16.11 Unilateral primary osteoarthritis, right hip (principal); Z96.641 Presence of right artificial hip joint; Z47.1 Aftercare following joint replacement surgery
CPT/HCPCS: 73502

== ENCOUNTER → 2022-02-18 13:12 | Outpatient (BNVA) | payer MEDICARE, SELFPAY | PROVIDERS: PCP Nurse Practitioner Family; Referring Provider Nurse Practitioner Family; Visit Provider Student in an Organized Health Care Education/Training Program | DX: Z96.641 Presence of right artificial hip joint (principal); Z47.1 Aftercare following joint replacement surgery ==

== ENCOUNTER 2022-08-19 13:35 | Outpatient (CLI) | payer MEDICARE, SELFPAY ==
--- NOTE | 2022-08-19 13:00 | DI.RAD_ITS ---
Exam(s) XR STANDING ALIGNMENT EXAM: XR STANDING ALIGNMENT CLINICAL HISTORY: PRE OP L TKA. TECHNIQUE: 2D digital imaging was performed. Standing AP views were performed from the pelvis throu gh the ankles. COMPARISON: No exams were available for comparison FINDINGS: BONES: No acute fracture is present. No bony destructive lesion is seen. The right femoral head and r ight iliac crest project few millimeters superior to the left. JOINTS: Knees: Mild degenerative changes of the right knee. Severe degenerative changes of the media l femoral tibial joint space of the left knee with a [id number] appearance. Prominent part periart icular spurring. Chondrocalcinosis. Ovoid loose body noted adjacent to the medial tibial plateau. The ankle joint spaces are well maintained. Hip joints: Right hip prosthesis. Left hip joint space well maintained. SOFT TISSUE: Normal. IMPRESSION: Right hip prosthesis. Severe degenerative changes of the medial femoral tibial joint of the right kn ee. Mild leg length discrepancy. DATA REPOSITORY: RADIATION DOSE DELIVERED:
== END 2022-08-19 13:36 | disposition home or self-care (01) ==
LOC: DIORS 13:35
PROVIDERS: PCP Nurse Practitioner Family; Referring Provider Nurse Practitioner Family; Visit Provider Physician Assistant
DX: M17.12 Unilateral primary osteoarthritis, left knee (principal); Z01.818 Encounter for other preprocedural examination
CPT/HCPCS: 77073

== ENCOUNTER 2022-08-26 02:45 | Outpatient (CLI) | payer MEDICARE, SELFPAY ==
[2022-08-26 10:43] LABS: HCT 42.3 % (36.0-46.0); HGB 13.9 g/dL (11.2-15.7); MCH 29.7 pg (27.0-33.0); MCHC 32.9 % (32.0-36.0); MCV 90 fL (80-95); MPV 11.3 fL (8.0-11.0); Platelet Count 197 10^3/uL (130-400); RBC 4.68 10^6/uL (3.93-5.22); RDW 12.5 % (11.7-14.6); RDW-SD 41.3 fL; WBC 6.83 10^3/uL (4.4-10.8)
[2022-08-26 11:15] LABS: Anion Gap 7.9 mmol/L (3-11); BUN 32 mg/dL (7-18); CO2 28.1 mmol/L (21.0-32.0); Calcium 9.1 mg/dL (8.5-10.1); Chloride 106 mmol/L (98-107); Estimated GFR 58.02 (mL/min/1.73m2); Glucose 83 mg/dL (74-106); Potassium 4.2 mmol/L (3.5-5.1); Sodium 142 mmol/L (136-145)
== END 2022-08-26 02:46 | disposition home or self-care (01) ==
LOC: LBO 02:45
PROVIDERS: PCP Nurse Practitioner Family; Visit Provider Student in an Organized Health Care Education/Training Program
DX: M25.562 Pain in left knee (principal); M17.12 Unilateral primary osteoarthritis, left knee; Z01.818 Encounter for other preprocedural examination; Z01.812 Encounter for preprocedural laboratory examination
CPT/HCPCS: 36415; 80048; 85027

== ENCOUNTER 2022-08-27 07:13 | Day surgery (SDC) | payer MEDICARE, SELFPAY ==
[2022-08-27] VITALS (9 sets, daily range): BP systolic 88–154; BP diastolic 53–90; PULSE 68–77; RESP 14–22; TEMP 35.9–36.4; O2SAT 97–100; BMI 24.0
--- NOTE | 2022-08-27 07:24 | DSE_ITS ---
Date of service: 08/27/22 Time of Service: 12:27 Discharge Plan Disposition Patient Disposition: HOME Condition: Good Discharge Details Reason For Visit: left knee DJD Attending Provider: Desmond Osorio Primary Care Provider: Renato Cain Home Meds and New Rx's Prescriptions: New acetaminophen 500 mg tablet 500 mg PO Q6H PRN (Reason: pain) Qty: 60 2RF aspirin 81 mg tablet,delayed release (DR/EC) 81 mg PO BID 30 Days Qty: 60 0RF celecoxib [Celebrex] 200 mg capsule 200 mg PO BID Qty: 30 0RF docusate sodium [Colace] 100 mg capsule 100 mg PO BID Qty: 30 0RF pantoprazole 40 mg tablet,delayed release (DR/EC) 40 mg PO DAILY 14 Days Qty: 14 0RF gabapentin 300 mg capsule 300 mg PO QHS Qty: 14 0RF Rx Instructions: Take one tablet at bedtime oxycodone 5 mg tablet 5 mg PO Q4H PRN (Reason: severe post-operative pain) Qty: 18 0RF Rx Instructions: Take one tablet up to every 4 hours as needed for severe pain Continued uliggnz-xqtodptdx-dush 333-133-8.3 mg tablet 1 tab PO DAILY Complete [place] 700-1,500 mg-mg capsule 1 cap PO DAILY multivitamin [One Daily Multivitamin] Tablet 1 tab PO DAILY Saccharomyces boulardii [Daily Probiotic (S. boulardii)] 250 mg capsule 250 mg PO DAILY ascorbic acid (vitamin C) 1,000 mg tablet 1 g PO DAILY carboxymethylcellulose sodium [Lubricant Eye Drops] 15 ML drops 15 ml Ophthalmic DAILY PRN PRN garlic 1 EACH capsule 1 ea PO DAILY cholecalciferol (vitamin D3) [Vitamin D3] 400 UNIT capsule 400 unit PO DAILY PRN PRN losartan 25 mg tablet 25 mg PO HS Discontinued acetaminophen 500 mg tablet 1,000 mg PO Q8H PRN (Reason: pain) Qty: 90 3RF Discharge Instructions Additional Instructions: Total Knee Discharge Instructions Activity: The most important activity is to walk. You should try to take short walks a few times a day. It is important that when resting you work on keeping the knee straight. Avoid putting a pillow behind the knee as this will encourage flexion. Work on range of motion exercises as provided by Physical Therapy. - Start outpatient physical therapy within 2 weeks. - You should wear the SHANTHI hose on both legs for 2 weeks. You may remove these at night. You may also use any compression sock in place of the SHANTHI hose. - Utilize [employer] to review exercises, see videos on exercises and obtain basic information pertaining to your surgery and your recovery. Dressing: Remove the Iván wrap by 2 days after your surgery and put on the SHANTHI stocking given to you from the hospital. Keep the surgical dressing (underneath the IVÁN wrap) in place for at least one week. After the first week it may be removed and replaced with light gauze and tape or nothing. The wound and dressing may get wet after 3 days but avoid soaking the dressing or otherwise it will need to be changed. Many people prefer covering the dressing with cling wrap (saran wrap) to minimize it from getting soaked. If it gets wet, just pat dry. If it starts to peel off then it will need to be changed. Medications: - You should take Tylenol and anti-inflammatory Celebrex as your primary pain control medications. If the Celebrex is too expensive or not covered, please call the office for another alternative (Advil/Ibuprofen or Naproxen/Aleve) - You have been prescribed a stronger pain medication Oxycodone for breakthrough pain, take as needed as prescribed. - You have also been prescribed a stomach acid reduction agent Pantoprozole to help reduce stomach acid and reflux. - You have been prescribed Gabapentin to take at night for restlessness and nerve pain. - You will be taking Aspirin 81mg twice a day for DVT prevention unless instructed otherwise. - If you have constipation you should take Colace (which has been prescribed) or Miralax (which is available [id number]). It takes most people 3-4 days to have a bowel movement. Follow-up: 2 weeks If you have any acute concerns or questions, please do not hesitate to contact the office at [phone]. You may contact Dr. Osorio with any questions after hours through the hospital at [phone] or on his cell phone at [phone]. Stand Alone Forms: Anesthesia Discharge Inst., Anes.Nerve Block Instructions, Ryann Martinez ([facility]) Referrals: Desmond Osorio MD [ [facility] STAFF PHYSICIAN] - Equipment/Supplies: Walker Activity:: Elevate Remove Dressings/Wound Care:: Do Not Remove Shower/Bathe:: Cover Diet:: As Tolerated Discharge Orders Discharge Orders: Discharge Order (Routine); Ordered 08/27/22 Ordered By: Desmond Osorio DS: Summary Time Spent with Patient providing and/or coordinating discharge services: Less than 30 minutes Status at Discharge Functional status at discharge: uses cane/walker Overall status at discharge: patient is progressing back to baseline Mental Status: mental status grossly normal Speech and Movement: speech and movement normal Mood: congruent mood Affect: normal affect Exam Psych Mental Status: mental status grossly normal Speech and Movement: speech and movement normal Mood: congruent mood Affect: normal affect DS: Data Vitals/I&O Vitals and I&O: Intake & Output 08/26/22 08/26/22 08/27/22 11:59 23:59 11:59 Weight 147 lb 2.008 oz PFSH All Active Problems Arthritis of right knee (Acute) Arthritis of left knee (Acute) Bilateral knee pain (Acute) Diverticulosis (Acute) Adrenal mass, left (Acute) Compression fracture of L1 lumbar vertebra (Acute) Hypertension (Chronic) CKD (chronic kidney disease) (Chronic) Medical History Acute phlegmonous appendicitis treated with antibiotics Antibiotic-associated diarrhea Appendicitis with nonoperative management Colitis E. 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 Her daughter lives in a separate unit upstairs. 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 Pets and animals: Yes Pets and animals: cat(s) Sexually active: No Current gender identity: female What is your relationship status?: How often do you talk on the phone with friends or family?: three or more times per week How often do you get together with friends or relatives?: three or more times per week How often do you attend amish or protestant services?: 1-3 times per year Do you belong to any clubs or organized social groups?: yes Panel score (0-1 are the most socially isolated patients): 2 Duration: < 15 minutes/day Frequency: daily Carmella/Catholic: Yazidi Seatbelt use: always Helmet use: Yes Helmet use: always Drive intox or ride w/intox route sales delivery 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
[2022-08-27] MEDS: Gabapentin 300 MG CAP PO (07:57)
[2022-08-27] MEDS: Celecoxib 200 MG CAP 400 MG PO (07:57)
[2022-08-27] MEDS: Acetaminophen 500 MG TAB 1000 MG PO (07:57)
--- NOTE | 2022-08-27 08:00 | W.ANESPRE ---
General Info Date of Service Date Performed: 08/27/22 Height: 5 ft 6 in Weight: 67.4 kg Body Mass Index (BMI): 24.0 Surgical Procedure: Operation Date: 08/27/22 09:10 Proposed Procedure Side Surgeon p Knee Total Arthroplasty Cemented CR possilble PS Left Desmond Osorio MD Meds Allergies and Home Medications Allergies Allergy/AdvReac Type Severity Reaction Status Date / Time No Known Allergies Allergy Verified 08/27/22 07:37 Home Medication Medication Instructions Recorded carboxymethylcellulose sodium 0.5 15 ml ophthalmic (eye) DAILY PRN 05/11/13 % eye drops (Lubricant Eye Drops) PRN cholecalciferol (vitamin D3) 10 400 unit PO DAILY PRN PRN 05/11/13 mcg (400 unit) capsule (Vitamin D3) garlic 1 ea PO DAILY 05/11/13 Saccharomyces boulardii 250 mg 250 mg PO DAILY 08/13/21 capsule (Daily Probiotic (S. boulardii)) brdudys-zzekszzil-ahqk 333 mg-133 1 tab PO DAILY 08/13/21 mg-8.3 mg tablet multivitamin (One Daily 1 tab PO DAILY 08/13/21 Multivitamin tablet) omega 3,5,6,7,9 combination no.1 1 cap PO DAILY 08/13/21 700 mg-salmon oil 1,500 mg capsule (Complete [place]) ascorbic acid (vitamin C) 1,000 mg 1 g PO DAILY 12/20/21 tablet losartan 25 mg tablet 25 mg PO HS 01/07/22 acetaminophen 500 mg tablet 500 mg PO Q6H PRN pain #60 tabs 08/27/22 aspirin 81 mg tablet,delayed 81 mg PO BID 30 days #60 tabs 08/27/22 release celecoxib 200 mg capsule (Celebrex) 200 mg PO BID #30 caps 08/27/22 docusate sodium 100 mg capsule 100 mg PO BID #30 caps 08/27/22 (Colace) gabapentin 300 mg capsule 300 mg PO QHS #14 caps 08/27/22 oxycodone 5 mg tablet 5 mg PO Q4H PRN severe 08/27/22 post-operative pain #18 tabs pantoprazole 40 mg tablet,delayed 40 mg PO DAILY 14 days #14 tabs 08/27/22 release Current Visit Medications: Current Medications Generic Name Dose Route Start Last Admin Trade Name Freq PRN Reason Stop Dose Admin Acetaminophen 1,000 mg 08/27/22 06:00 08/27/22 07:57 Acetaminophen 500 Mg Tab PO 08/27/22 16:00 1,000 mg PREOP KAREN Administration Acetaminophen 1,000 mg 08/27/22 08:30 Acetaminophen 500 Mg Tab PO TID KAREN Aspirin 81 mg 08/27/22 08:30 Aspirin E.C. 81 Mg Tabec PO BID KAREN Celecoxib 400 mg 08/27/22 06:00 08/27/22 07:57 Celecoxib 200 Mg Cap PO 08/27/22 16:00 400 mg PREOP KAREN Administration Celecoxib 200 mg 08/27/22 08:30 Celecoxib 200 Mg Cap PO BID KAREN Docusate Sodium 100 mg 08/27/22 07:21 Docusate Sodium 100 Mg Cap PO BID PRN PRN Constipation Gabapentin 300 mg 08/27/22 06:00 08/27/22 07:57 Gabapentin 300 Mg Cap PO 08/27/22 16:00 300 mg PREOP KAREN Administration Gabapentin 300 mg 08/27/22 22:00 Gabapentin 300 Mg Cap PO HS KAREN Hydromorphone HCl 0.5 mg 08/27/22 07:21 Hydromorphone 2 Mg/Ml Syr IVP Q2H PRN PRN Tranexamic Acid 1,000 mg/ 60 mls @ 360 mls/hr 08/27/22 06:00 Sodium Chloride IVPB 08/27/22 16:00 PREOP KAREN Tranexamic Acid 1,000 mg/ 60 mls @ 360 mls/hr 08/27/22 06:00 Sodium Chloride IVPB 08/27/22 16:00 DIRECTED KAREN Ringer's Solution 1,000 mls @ 80 mls/hr 08/27/22 06:00 IV 09/25/22 23:59 INFUSION KAREN Cefazolin Sodium/Dextrose 2 gm in 50 mls @ 100 mls/hr 08/27/22 06:00 Ancef Duplex IVPB 08/27/22 16:00 PREOP KAREN Cefazolin Sodium/Dextrose 1 gm in 50 mls @ 100 mls/hr 08/27/22 08:00 Ancef Duplex IVPB 08/28/22 00:29 Q8H KAREN IV Miscellaneous Supplies 1 each 08/27/22 06:00 Iv Access IV 09/25/22 23:59 DIRECTED KAREN Oxycodone HCl 0 mg 08/27/22 07:21 Oxycodone 5 Mg Tab PO Q3H PRN PRN Pain Pantoprazole Sodium 40 mg 08/27/22 07:30 Pantoprazole 40 Mg Tabcr PO DAILY@0730 KAREN Polyethylene Glycol 17 gm 08/27/22 07:21 Polyethylene Glycol 3350 17 Gm Packet PO BID PRN PRN Constipation Sodium Chloride 0 ml 08/27/22 06:00 Normal Saline Flush 10 Ml Syr IV 09/25/22 23:59 PRN PRN Sodium Chloride 0 ml 08/27/22 06:00 Normal Saline 10 Ml Vial IJ 09/25/22 23:59 DIRECTED PRN Sterile Water 0 ml 08/27/22 06:00 Water,Injection,Sterile 10 Ml Vial IJ 09/25/22 23:59 DIRECTED PRN PFSH Active Problems Active Problems: Problem Status Onset Code Arthritis of right knee M17.11 Arthritis of left knee M17.12 Bilateral knee pain M25.561, M25.562 Diverticulosis K57.90 Adrenal mass, left E27.8 Compression fracture of L1 lumbar vertebra S32.010A Hypertension I10 CKD (chronic kidney disease) N18.9 Medical History Medical History Acute phlegmonous appendicitis treated with antibiotics Antibiotic-associated diarrhea Appendicitis with nonoperative management Colitis E. 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) S/P left knee arthroscopy Tobacco Smoking/Tobacco Use Status: Never Passive smoking exposure: Yes Second hand exposure: Yes Alcohol Alcohol Intake: current Alcohol intake frequency: holidays/special occasions only Details: rare ingestion Substance Use Substance use: Never Substance use type: does not use Vital Signs and Lab Results Vital Signs Most Recent Vital Signs in EMR: Most Recent Vital Signs Temp Pulse Resp BP Pulse Ox 36.2 C L 75 16 154/89 H 100 08/27/22 07:43 08/27/22 07:43 08/27/22 07:43 08/27/22 07:43 08/27/22 07:43 Lab Results Blood Type / Crossmatch: No Data to Display Complete Blood Count: White Blood Count 6.83 10^3/uL (4.4-10.8) 08/26/22 10:34 Red Blood Count 4.68 10^6/uL (3.93-5.22) 08/26/22 10:34 Hemoglobin 13.9 g/dL (11.2-15.7) 08/26/22 10:34 Hematocrit 42.3 % (36.0-46.0) 08/26/22 10:34 Platelet Count 197 10^3/uL (130-400) 08/26/22 10:34 Complete Metabolic Panel: Sodium Level 142 mmol/L (136-145) 08/26/22 10:34 Potassium Level 4.2 mmol/L (3.5-5.1) 08/26/22 10:34 Chloride Level 106 mmol/L (98-107) 08/26/22 10:34 Carbon Dioxide Level 28.1 mmol/L (21.0-32.0) 08/26/22 10:34 Blood Urea Nitrogen 32 mg/dL (7-18) H 08/26/22 10:34 Creatinine 1.0 mg/dL (0.55-1.02) 08/26/22 10:34 Calcium Level 9.1 mg/dL (8.5-10.1) 08/26/22 10:34 Glucose Level 83 mg/dL (74-106) 08/26/22 10:34 Liver Function Panel: No Data to Display Coagulation Panel: No Data to Display Cardiac Panel: No Data to Display Arterial Blood Gas: No Data to Display Venous Blood Gas: No Data to Display Pancreas Panel: No Data to Display Thyroid Panel: No Data to Display Infectious Disease: No Data to Display Blood Cultures: No Data to Display Toxicology Panel: No Data to Display Imaging and Studies Imaging and Studies Study information below may be from another EMR and interpreted by another provider. Please see original notes in EMR for more complete details. EKG Summary: DATE/TIME OF SERVICE: 04/15/21 Conclusion Sinus rhythm...normal P axis, V-rate 60- 99 Anesthesia Assessment and Plan Anesthesia History Personal History: No History of Anesthesia Complications Family History: No Family History of Anesthesia Complications Exercise Tolerance Exercise Tolerance: Metabolic Equivalents>4 Pertinent Negatives Pertinent Negatives: No Symptoms of GERD, No Major Cardiovascular Symptoms or Complaints, No Major Pulmonary Symptoms or Complaints and No History of CVA/TIA Cardiac & Pulmonary Exam Cardiac Exam: Normal S1/S2 Heart Sounds Pulmonary Exam: Clear Bilateral Breath Sounds Implantable Cardiac Device Does patient have a Pacemaker or an ICD?: No Airway Exam Known Difficult Airway: No Mallampati Class: 2 Mouth Opening: Normal (> 3cm) Thyromental Distance: Greater than 3 cm Neck Range of Motion: Full ROM Neck Circumference: Normal Teeth Condition: Normal Dentition ASA Classification ASA Score: ASA 2 Emergency Case?: No NPO Status NPO Status: NPO Clears >2 hours, Solids >8 hours Anesthesia Plan Resuscitation Status: Full Code Anesthesia Technique: Spinal Anesthesia Airway Planned: Natural Airway Pain Management: Surgeon and patient request nerve block Monitors Used: Standard Monitors Preoperative Comments:: Patient states they had difficulty with my spinal last time.
[2022-08-27] MEDS: Lactated Ringers 1,000 ML 80 ML IV (08:19)
[2022-08-27] MEDS: ceFAZolin 2 GM/50 ML BAG IVPB (08:51)
--- NOTE | 2022-08-27 09:59 | W.ANESNERVE ---
Nerve Block Single Injection Procedure Date and Time Date Performed: 08/27/22 Procedure Start: 08:30 Location Where Procedure Performed Procedure Location: Day Surgery Unit Reason Performed: Postoperative Analgesia Requesting Provider: Desmond Osorio Timeout Performed Timeout Performed: Yes Monitoring Used ECG, Blood Pressure, SpO2 and See EMR for corresponding vital signs Sterility Sterility: Hand Hygiene, Surgical Cap, Surgical Mask, Sterile Gloves, Eye Protection and Chlorhexidine Sedation Given During Procedure Sedation Given (Indicate Dose Given): No Sedation given Patient Mental Status Patient Mental Status: Awake Nerve Block 1st Nerve Block: Laterality: Left Block Type: Adductor Canal Needle / Catheter Used: 100mm SonoPlex II Local Anesthetic Bolus (Indicate Dose Given): Lidocaine used for local infiltration of skin and Bupivacaine 0.25% Dose:: 15ml Additives (Indicate Dose Given): None Ultrasound: Sterile probe cover and gel used Ultrasound Image Saved?: Yes Nerve Stimulator: Not Used Paresthesia: None Procedure Tolerated: No Complications and Patient tolerated well Procedure Outcome: Successful Performed By: Jessie Lema Supervised By: Susana Mittal
--- NOTE | 2022-08-27 12:06 | W.ANESPOSTOP ---
Postoperative Evaluation Date, Time and Location Date Performed: 08/27/22 Time Performed: 12:08 Patient Location: Day Surgery Unit Vital Signs Most Recent Imported Vital Signs: Most Recent Vital Signs Temp Pulse Resp BP Pulse Ox 35.9 C L 76 14 137/90 97 08/27/22 11:29 08/27/22 11:29 08/27/22 11:29 08/27/22 11:29 08/27/22 11:29 Pain Score Most Recent Pain Score: Most Recent Pain Score Pain Level 0 08/27/22 11:29 Assessment Mental Status: Awake (Alert & Oriented to Patient Baseline) Airway and Respiratory Function: Patent airway with normal (patient baseline) respiratory exam Cardiovascular Function: Hemodynamically Stable Hydration Status: Adequately Hydrated Nausea & Vomiting: No Nausea or Vomiting Pain: Pt. Denies Any Pain Peripheral Nerve Block: Regional nerve block not resolved at time of post operative discharge Postoperative Comments:: Full ROM but no pain
--- NOTE | 2022-08-27 12:46 | PT.INIE ---
Date of service: 08/27/22 Time of Service: 12:46 PT Notes Visit Reasons: left knee DJD Physical Therapy Day Surgery Initial Evaluation Date: 08/27/2022 Referring Doctor: MARISA Purcell PT Orders: PT CONSULT: S/P Ortho surgery Precautions: WBAT on the L LE with AD. Patient Profile/Admitting Diagnosis: Kelly is a 76-year-old female with degenerative joint disease of the left knee and is status post left total knee arthroplasty on postoperative day 0. PMHX: Medical History?(Updated 08/14/22 @ 09:23 by Renato Cain NP) Acute phlegmonous appendicitis treated with antibiotics Antibiotic-associated diarrhea Appendicitis with nonoperative management Colitis E. 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 Independent with all aspects of ADLs prior to surgery. 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 Equipment Owned/DME: [facility] Subjective: Patient reports left knee muscle feeling weak however denies headache, chest pain, and lightheadedness. Reports no pain in the left knee. States that she will have the support of her daughter as needed while she recovers. Objective: General Observation: Supine in bed. EVARISTO wraps to left LE. Cryo/Cuff to left knee. Mental Status: Alert and oriented x4 Pain: 0/10 ROM: Right Lower Extremity: Hip flexion WFL. Hip abduction WFL. Knee flexion WFL. Ankle dorsiflexion WFL. Ankle plantarflexion WFL. Left Lower Extremity: Hip flexion WFL. Hip abduction WFL. Knee flexion 0 to 100 degrees. Knee extension 100 degrees to 0.. Ankle dorsiflexion WFL. Ankle plantarflexion WFL. Strength: Right Lower Extremity: Hip flexors 5/5. Hip abductors 5/5. Knee flexors 5/5. Knee extensors 5/5. Ankle dorsiflexors 5/5. Ankle plantarflexors 5/5. Left Lower Extremity:Hip flexors 5/5. Hip abductors 5/5. Knee flexors 3-/5. Knee extensors 3-/5. Ankle dorsiflexors 5/5. Ankle plantarflexors 5/5. Sensation: Intact as to pain and light pressure in bilateral lower extremities Bed Mobility/Transfers: Supine to sit supervision Sit to stand standby assist Stand to sit standby assist Bed to chair standby assist Gait: Demonstrated to patient safe and correct technique prior to activity. Patient tolerated 150 feet using front wheeled walker with step through gait pattern requiring standby assist with no report of increased pain. Also completed 50 feet using bilateral axillary crutches using three-point gait pattern. Stairs: Demonstrated to patient safe and correct technique prior to activity. Patient completed up and down 6 x 4 inch steps and 4 x 6 inch steps while holding onto bilateral rails with step-to gait pattern requiring standby assist no report of increased pain. Balance: Static Sitting: Normal Dynamic Sitting: Normal Static Standing: Fair Dynamic Standing: Fair Special Tests: Mobility Limitations Standardized Measure [facility] 6 clicks Basic Mobility Inpatient Short Form: Raw Score: 23 CMS Score: 11% deficit Informed Consent/Education: Patient instructed in purpose of PT consult. Packet containing [] exercise protocol has been given to patient. Education and training on initial set of exercises that can be done at home have been completed with patient. Assessment: Patient requires the use of a front wheeled walker from from mobility ADL performance to maximize independence and reduce fall risk in the acute phase postoperatively. Patient presents with clinical signs and symptoms consistent with current/admitting diagnoses that have resulted to mobility limitations, gait instability, generalized weakness, and impairment of motor control as demonstrated by the following impairment level findings: 1. Decreased strength to left knee major muscle groups 2. Impaired standing balance 3. Limitation of joint range of motion in left knee Impairments are contributing to the following functional limitations: 1. Inability to safely ambulate without assistive device 2. Increase completion time for mobility ADL performance 3. Increased fall risk Patient is assessed as a [id number] moderate complexity based on the following: History: 76-year-old female with impairment level findings, functional limitations, and past medical history as indicated above Examination: Demonstrable impairment in strength, balance, and mobility level with underlying impairments and functional limitations as documented above Presentation: Evolving Decision Makin moderate complexity Goals: N/A. PT evaluation and 1-2 treatment sessions only for functional mobility training using recommended AD and for HEP instruction. Plan of Care/Treatment Plan: N/A. PT evaluation and 1-2 treatment session only for functional mobility training using recommended AD and for HEP instruction. DISCHARGE RECOMMENDATIONS: [] Home with no services [] [] Home with services [specify] [X] Home with outpatient PT. Home when medically cleared by orthopedic surgeon. May benefit from outpatient PT services in order to maximize functional mobility outcomes and facilitate independent community ambulation without an assistive device. [] SNF for continued rehabilitation [] [] [facility] [] [] SNF versus LTC based on ability to participate and progress [] TREATMENT CODE/TIME: 9716 2 x 20 minutes, 9753 0 x 18 minutes beginning at 12:46 PM. Thank you for the opportunity to participate in the care of this patient. Diann Kenney PT, DPT, CLT [facility] [place], [place]
--- NOTE | 2022-08-27 22:15 | W.PM.OP ---
Date of service: 08/27/22 Time of Service: 10:30 Operative Note Operative Note DATE OF PROCEDURE: 08/27/22 PRE-OP DIAGNOSIS: Left Knee Osteoarthritis POST-OP DIAGNOSIS: same PROCEDURE: Left Total Knee Replacement SURGEON: Desmond sOorio RESEARCH GROUP DIRECTOR: Theresa Ambrose ANESTHESIA TYPE: Spinal Refer to Anesthesia Record PATHOLOGY: none sent COMPLICATIONS: None Patient was transported to: PACU Patient's condition: stable Implants: 1. Depuy Attune Cruciate Retaining Femoral Component, Size 5 2. Depuy Attune Rotating Platform Tibial Component, Size 3 3. Depuy Attune 6x8 CR,RP Poly 4. Depuy Attune Patellar Component, Size 35 Indications: I have seen Kelly in clinic for symptoms of knee arthritis, confirmed with radiographic findings. She has exhausted nonoperative methods and was having significant limitations in daily function and desired better function and less pain. I discussed the technical details of a knee replacement. I explained the risks of the procedure to include, but not limited to, bleeding, infection, pain, stiffness, fracture, damage to nerves and vessels, damage to muscles and tendons, loosening, need for repeat procedure, blood clot and cardiopulmonary demise. Despite these risks, Kelly elected to proceed. Findings: There was significant signs of arthritis throughout the knee involving all 3 compartments.. Procedure Description: Kelly was greeted in the preoperative holding area where the correct side was identified and marked. The consent was reviewed with the patient and signed. The history and physical was updated. All questions were answered. Preoperative mediacations were administered: Acetaminophen 1000mg, Celebrex 400mg, and Gabapentin 300mg. An adductor canal block was then administered by the anesthesia team in the PACU. Kelly was taken back to the operating room. A spinal anesthestic was then administered. However, it did not seem to be setting up completely and thus a general anesthetic was initiated. The patient was placed into the supine position on the operating room table. A nonsterile tourniquet was placed high onto the leg but only used for cementing. Posts were placed for positioning during the procedure. All bony prominences were well padded. Prophylactic antibiotics in the form of Cefazolin were administered. 1g of Tranxemic Acid was given intravenously within 30 minutes of incision. The left leg was then prepped with Chloraprep and draped in a standard fashion with impervious stockinette and extremity drape. A second prep with Chloraprep was performed prior to placing Ioband. A timeout to confirm correct identity, side and site, procedure, allergies, anesthesia, and medical concerns was performed. With the knee in some flexion, a midline incision was made overlying the knee. Full thickness skin flaps were raised once the extensor mechanism was encountered. These were raised medially and laterally. Any bleeding was controlled with electrocautery. Once the extensor mechanism was fully exposed, a medial parapatellar arthrotomy was performed in a flexed position. All bleeding from the arthrotomy and the geniculate arteries was coagulated. A medial subperiosteal peel was performed with electrocautery to the midcoronal plane. Due to the significant varus deformity the entire medial tibial plateau was exposed. The fat pad was removed while keeping the patellar tendon protected. The anterior distal femur synovium was removed for later visualization. The ACL and PCL were resected and the anterior horn of the lateral meniscus was transected. The knee was then flexed with the patella everted. Large osteophytes from the tibia were removed. Large osteophytes from the femur were removed. Using a step drill, and based on preoperative templating, the femoral canal was entered. This was done with a step drill without any difficulty. The intramedullary distal femoral cut guide was inserted, set to a 5 degree valgus cut and 8mm cut thickness. The distal femoral cut guide was then held in position and pinned. With the soft tissues protected, the distal cut was performed. This was passed over a few times to ensure a planar cut. I then turned attention to the tibia. The extramedullary guide was placed onto the leg. The distal aspect was slid medial to adjust for position of center of ankle and stay in line with shaft of the tibia. Approximately 3-5 degrees of posterior slope was kept in the proximal cutting guide. The center of the guide was aligned with the PCL. The stylus was used to assess cut thickness. The medial side, most involved side, was set for a 3mm cut. This was then held in position and pinned into place with 2 additional pins and a cross pin for stability. The medial and lateral collateral ligaments were protected and the cut was performed. With this completed, it was assessed and noted to be of appropriate dimensions. The guide was removed. A spacer block was inserted and the knee was brought into extension. The 6mm spacer block provided full extension, without hyperextension and with stability of both the medial and lateral collateral ligaments was assessed. The pins from the femur and the tibia were then removed. The distal femur was then sized. The anterior stylus was placed onto the lateral ridge of the anterior femur. This indicated a size 5 femur. The external rotation of the guide was adjusted to 3 degrees to match the epicondylar axis, perpendicular to Stefano?s line. The 4-in-1 cutting guide was the placed. The posterior medial femur cut was evaluated and appeared of good thickness. The spacer block was inserted underneath the cutting guide and stability was confirmed in 90 degrees of flexion. An shari wing was used to confirm appropriate position of the anterior cut to avoid notching. This cutting guide was ensured to be flush on the cut surface and then pinned into place with headed pins. While protecting the soft tissues, quad tendon, and collateral ligaments, the anterior and posterior cuts were performed with a saw. The central two pins were removed and the posterior and anterior chamfers were cut next. The notch-cutting guide was placed. This was pinned to lateralize the femoral component as much as possible while keeping it flush on the cut surface. This was then pinned into position. A reciprocating saw was used to make the small notch cut. A trial CR femoral component was then inserted, impacted down to the cut surfaces, and the lug holes were drilled. A provisional trial tibial component was placed and the knee was brought through range of motion. The polyethylene was trialed until there was good flexion and extension with excellent stability to the medial and lateral collaterals. The patella was tracking without thumbs. The tibial cut surface was fully exposed. The medial and lateral menisci were removed. The tibia was then sized as a 3. The tibia had been previously marked during trialing to correspond to the center of the tibial component to help with rotation. The trial was aligned to this krissy, approximately rotated to the medial 1/3rd of the tibial tubercle. The trial was pinned into place. The tibia was prepared with a reamer and a keel punch. The knee was then brought into extension and the patella was measured as 22mm. Using the patellar clamp and cut guide, this was resected to a flat surface with at least 13mm of thickness remaining. The size 35 patella fit the best. This was oriented and then clamped into position. The lugs were drilled. The trial components were removed. The final components, except for the polyethylene were opened on the back table. The periosteal and capsular tissues, especially posteriorly, around the knee were then systematically injected with a periarticular cocktail consisting of 246mg of Ropivacaine, 0.5mg of Epinephrine, 0.08mg of Clonidine, and 30mg of Ketorolac, diluted to 100cc.. The tourniquet was then inflated to 275mmHg. The knee was thoroughly irrigated with a pulse lavage and dried. On the back table, with the implants opened, the cement was mixed. 2 batches of medium viscosity cement were prepared with vacuum assistance. After the cement was ready it was placed on to the back side of the tibial component. A small amount was placed onto the posterior flange of the femur. Cement was manual pressurized and impregnated into the cut surface of the tibia. The tibial component was then inserted into the cut surface and impacted into position. Excess cement was removed and the component was reimpacted. Again, excess cement was removed and our attention was then turned to the femur. The femoral cut surface was once again dried and cement was manually impacted into the cut surface. The femoral component was lined with the lug holes and impacted. Excess cement was removed. It was ensured to be down against the cut surface. The trial polyethylene was then inserted and the leg was brought out into full extension for the duration of the cement curing process, approximately 18min. Cement was lastly manually impacted into the cut surface of the patella and the patellar button was clamped into position and held. During this process attention was turned to the gutters of the knee and for all interfaces for any excess cement. While the cement was hardening, the knee was irrigated with Surgiphor Betadine solution. It was allowed to sit in the knee for 3 minutes and then it was thoroughly irrigated with saline. After the cement had finally cured, approximately 18min, the clamp was removed from the patella and the knee was taken through range of motion. A size 7mm polyethylene component provided the best range of motion and stability with less than 2mm gapping with medial and lateral stress and full extension without significant hyperextension. The patella was tracking with a no-thumbs technique. The trial poly was removed and once again the knee was checked for any loose, excess, or errant cement. The poly component was then inserted into position after cleaning and drying the tibial tray. The capsule was then reapproximated with a No. 1 Vicryl at multiple locations. The capsule was finally closed with a No. 2 Stratafix, barbed suture. The tourniquet was then released and the arthrotomy appeared watertight without significant bleeding. The second dosing of 1g TXA was started. Deep tissues were then reapproximated with 0 Vicryl and 2-0 Monocryl. The skin was closed with a running 3-0 Monocryl in a subcuticular fashion. This was reinforced with skin glue. A Mepilex silver dressing was applied along with a [id number] EVARISTO wrap. A CryoCuff was applied. Kelly was transferred to the hospital bed without difficulty an suffering no apparent complication. Kelly has a good prognosis. Physical therapy will start today and without restrictions, weight-bearing as tolerated. Aspirin 81mg BID will be used for DVT prophylaxis.
== END 2022-08-27 14:45 | disposition home or self-care (01) ==
PROVIDERS: PCP Nurse Practitioner Family; Visit Provider Student in an Organized Health Care Education/Training Program
PROC: (CPT 27447; principal; 2022-08-27 09:00)
DX: M17.12 Unilateral primary osteoarthritis, left knee (principal); I12.9 Hypertensive chronic kidney disease with stage 1 through stage 4 chronic kidney disease, or unspecified chronic kidney disease; N18.9 Chronic kidney disease, unspecified
CPT/HCPCS: 27447; C1776; 76942; 97163; 97530; J0690; J1100; J1885; J2250; J2405; J2704

== ENCOUNTER 2022-09-09 12:04 | Outpatient (CLI) | payer MEDICARE, SELFPAY ==
--- NOTE | 2022-09-09 11:00 | DI.RAD_ITS ---
Exam(s) XR KNEE LT 1V XR STANDING ALIGNMENT EXAM: XR STANDING ALIGNMENT CLINICAL HISTORY: L TKR. TECHNIQUE: 2D digital imaging was performed. Standing AP views were performed from the pelvis throu gh the ankles. COMPARISON: CT CT ABDOMEN PELVIS W from 04/15/2021 XR HIP RT IN OR from 01/08/2022 CR XR STANDING ALIGNMENT from 08/19/2022 CR XR KNEE LT 1V from 09/09/2022 FINDINGS: BONES: No acute fracture is present. No bony destructive lesion is seen. Leg length discrepancy: No significant leg length discrepancy. JOINTS: Knees: Left knee prosthesis shows satisfactory alignment. No abnormal bony lucencies. No si gnificant left knee joint space narrowing. The ankle joints are unremarkable. There is a right hip prosthesis. The left hip joint space is well maintained. SOFT TISSUE: Normal. IMPRESSION: Right hip prosthesis. Left knee prosthesis. No significant leg length discrepancy. DATA REPOSITORY: RADIATION DOSE DELIVERED:
== END 2022-09-09 12:05 | disposition home or self-care (01) ==
LOC: DIORS 12:04
PROVIDERS: PCP Nurse Practitioner Family; Referring Provider Nurse Practitioner Family; Visit Provider Physician Assistant
DX: Z96.652 Presence of left artificial knee joint (principal); Z47.1 Aftercare following joint replacement surgery
CPT/HCPCS: 73560; 77073

== ENCOUNTER → 2022-10-17 09:25 | Outpatient (BNVA) | payer MEDICARE, SELFPAY | PROVIDERS: PCP Nurse Practitioner Family; Referring Provider Nurse Practitioner Family; Visit Provider Student in an Organized Health Care Education/Training Program | DX: Z47.1 Aftercare following joint replacement surgery (principal); Z96.652 Presence of left artificial knee joint ==

== ENCOUNTER 2023-01-13 13:25 | Outpatient (CLI) | payer MEDICARE, SELFPAY ==
--- NOTE | 2023-01-13 12:59 | DI.RAD_ITS ---
Exam(s) XR HIP RT AP LAT ONLY EXAM: XR HIP RT AP LAT ONLY INDICATION: ANNUAL F/U R POLI. COMPARISON: CR XR HIP RT COMPLETE AP PELVIS from 01/21/2022 TECHNIQUE: 2D digital imaging was performed. Two views. FINDINGS: No change in the alignment of right hip prosthesis. No abnormal surrounding lucencies. DATA REPOSITORY: RADIATION DOSE DELIVERED:
== END 2023-01-13 13:26 | disposition home or self-care (01) ==
LOC: DIORS 13:25
PROVIDERS: PCP Nurse Practitioner Family; Referring Provider Nurse Practitioner Family; Visit Provider Student in an Organized Health Care Education/Training Program
DX: Z96.641 Presence of right artificial hip joint (principal)
CPT/HCPCS: 99213; 73502

== ENCOUNTER 2023-09-05 09:45 | Outpatient (CLI) | payer MEDICARE, SELFPAY ==
--- NOTE | 2023-09-05 08:45 | DI.RAD_ITS ---
Exam(s) XR KNEE LT 2V AP,LAT EXAM: XR KNEE LT 2V AP,LAT CLINICAL HISTORY: ANNUAL F/U L TKA. TECHNIQUE: 2D digital imaging was performed. Three views. COMPARISON: CR XR KNEE LT 1V from 09/09/2022 CR XR STANDING ALIGNMENT from 09/09/2022 FINDINGS: BONES: There has been no change in the total knee prosthesis. No acute fracture is present. No bony destructive lesion is seen. JOINTS: The knee is normally aligned. No joint effusion is seen. SOFT TISSUE: Normal. IMPRESSION: Stable appearance of total knee prosthesis. DATA REPOSITORY: RADIATION DOSE DELIVERED:
== END 2023-09-05 09:46 | disposition home or self-care (01) ==
LOC: DIORS 09:45
PROVIDERS: PCP Nurse Practitioner Family; Referring Provider Nurse Practitioner Family; Visit Provider Student in an Organized Health Care Education/Training Program
DX: Z47.1 Aftercare following joint replacement surgery (principal); Z96.652 Presence of left artificial knee joint
CPT/HCPCS: 99213; 73560

== ENCOUNTER 2023-09-30 02:43 | Outpatient (CLI) | payer MEDICARE, SELFPAY ==
[2023-09-30 12:35] LABS: CREATININE 1.1 mg/dL (0.55-1.02); Estimated GFR 51.43 (mL/min/1.73m2); Potassium 3.7 mmol/L (3.5-5.1)
== END 2023-09-30 02:44 | disposition home or self-care (01) ==
PROVIDERS: PCP Nurse Practitioner Family; Visit Provider Nurse Practitioner Family
DX: I10 Essential (primary) hypertension (principal)
CPT/HCPCS: 36415; 82565; 84132

== ENCOUNTER 2024-10-11 01:45 | Outpatient (CLI) | payer MEDICARE, SELFPAY ==
--- NOTE | 2024-10-11 07:00 | DI.DEXA_ITS ---
Exam(s) XR DEXA BONE DENSITY W/WO DYANA EXAM: XR DEXA BONE DENSITY W/WO DYANA CLINICAL HISTORY: screening for osteoporosis, menopausal disorder,n95.9 TECHNIQUE: HoloMarkITx Horizon C densitometer analysis of left hip, lumbar spine and left forearm. Lat eral survey image of the thoracic and lumbar spine. COMPARISON: CT CT ABDOMEN PELVIS W from 04/15/2021 Prior exam formed [facility] 23 October 1999 images not available.. FINDINGS: Lateral view of the thoracic and lumbar spine shows a stable L1 compression fracture. Bone mineral density measurements of the lumbar spine correspond to a total T-score of 0.5, in the n ormal range. Bone mineral density measurements of the left hip correspond to a total T-score of -1.9. The femora l neck T-score is -1.5, in the osteopenic range.. Theleft forearm bone mineral density measurements correspond to a T-score of the distal 3rd of -2.6, in the osteoporotic range.. IMPRESSION: Stable L1 compression fracture. Normal bone mineral density of the lumbar spine. Osteopenia of the left hip. Osteoporosis of the forearm.
== END 2024-10-11 02:05 ==
LOC: DI 01:45
PROVIDERS: PCP Nurse Practitioner Family; Visit Provider Nurse Practitioner Family
DX: N95.9 Unspecified menopausal and perimenopausal disorder (principal); Z13.820 Encounter for screening for osteoporosis
CPT/HCPCS: 77080

== ENCOUNTER 2024-10-12 04:34 | Outpatient (CLI) | payer MEDICARE, SELFPAY ==
[2024-10-12 11:22] LABS: Anion Gap 8.7 mmol/L (3-11); BUN 23 mg/dL (7-18); CO2 30.3 mmol/L (21.0-32.0); CREATININE 1.1 mg/dL (0.55-1.02); Calcium 9.2 mg/dL (8.5-10.1); Calculated LDL 90 mg/dL (<100); Chloride 108 mmol/L (98-107); Cholesterol 171 mg/dL (<200); Estimated GFR 51.11 (mL/min/1.73m2); Glucose 94 mg/dL (74-106); HDL Cholesterol 63 mg/dL (40-60); Potassium 4.1 mmol/L (3.5-5.1); Sodium 147 mmol/L (136-145); Triglyceride 93 mg/dL (<150)
== END 2024-10-12 04:35 | disposition home or self-care (01) ==
LOC: LBO 04:34
PROVIDERS: PCP Nurse Practitioner Family; Visit Provider Nurse Practitioner Family
DX: Z13.6 Encounter for screening for cardiovascular disorders (principal); Z13.1 Encounter for screening for diabetes mellitus
CPT/HCPCS: 36415; 80048; 80061

== ENCOUNTER 2025-11-07 01:33 | Outpatient (CLI) | payer MEDICARE, SELFPAY ==
[2025-11-07 14:42] LABS: Anion Gap 9.6 mmol/L (3-11); BUN 27 mg/dL (9-23); CO2 29.4 mmol/L (20.0-31.0); Calcium 9.1 mg/dL (8.3-10.6); Chloride 106 mmol/L (98-107); Cholesterol 149 mg/dL (<200); Glucose 105 mg/dL (74-106); HDL Cholesterol 51 mg/dL (>40); Potassium 4.1 mmol/L (3.5-5.1); Sodium 145 mmol/L (136-145)
== END 2025-11-07 01:34 | disposition home or self-care (01) ==
LOC: LOS 01:34
PROVIDERS: PCP Nurse Practitioner Family; Visit Provider Nurse Practitioner Family
DX: I10 Essential (primary) hypertension (principal); Z13.6 Encounter for screening for cardiovascular disorders
CPT/HCPCS: 36415; 80048; 80061